=== PATIENT | male | born 1980 | race Caucasian/White ===

== ENCOUNTER 2017-10-07 07:36 | Emergency (ER) | payer OTHER ==
[2017-10-07 07:43] VITALS: BP 140/76
[2017-10-07 08:28] LABS: RAPID STREP SCREEN REAGENT QC YELLOW (YELLOW)
--- NOTE | 2017-10-07 08:40 | ED Physician Documentation ---
PD HPI HEENT - Stated complaint Stated Complaint: SORE THROAT - Chief complaint Chief Complaint: Heent - History obtained from History obtained from: Patient - History of Present Illness Timing - onset: How many days ago (5) Timing - duration: Days (5) Timing - details: Gradual onset, Still present Location: Throat Improves: Medication Worsens: Sw[place]ing Associated symptoms: Fever, Congestion, Rhinorrhea, Headache, Cough Similar symptoms before: Diagnosis (strep) Recently seen: Not recently seen - Additional information Additional information: 37-year-old male father of 5 children has been sick with a sore throat fever and headache for the past 5 days. All 5 of his children and his have been ill 3 of the children had positive rapid strep's yesterday. Review of Systems Constitutional: reports: Fever, Chills, Myalgias, Fatigue Eyes: denies: Decreased vision Ears: denies: Ear pain Nose: reports: Congestion Throat: reports: Sore throat Cardiac: denies: Chest pain / pressure, Palpitations Respiratory: reports: Cough. denies: Dyspnea GI: denies: Nausea, Vomiting : denies: Dysuria Neurologic: reports: Headache PD PAST MEDICAL HISTORY - Past Medical History Past Medical History: Yes GI: Hemorrhoids - Past Surgical History Past Surgical History: Yes General: Colonoscopy - Present Medications Home Medications: Ambulatory Orders Medication Instructions Recorded Confirmed Acetaminophen [Tylenol] 650 mg PO Q6HR 06/13/16 06/13/16 Ibuprofen 200 mg PO Q6HR PRN 06/13/16 06/13/16 Azithromycin [Zithromax] 250 mg PO DAILY #6 tablet 10/07/17 - Allergies Allergies/Adverse Reactions: Allergies Allergy/AdvReac Type Severity Reaction Status Date / Time Sulfa (Sulfonamide Allergy Edema Verified 10/07/17 07:44 Antibiotics) - Social History Does the pt smoke?: No Smoking Status: Never smoker Does the pt drink ETOH?: No Does the pt have substance abuse?: No - Immunizations Immunizations are current?: Yes - POLST Patient has POLST: No PD ED PE NORMAL - Vitals Vital signs reviewed: Yes (Hypertensive) - General General: No acute distress, Well developed/nourished - HEENT HEENT: Atraumatic, PERRL, EOMI, Ears normal, Moist mucous membranes, Other ( There is some mild erythema and exudate to the posterior pharynx.) - Neck Neck: Supple, no meningeal sign, No bony TTP - Cardiac Cardiac: RRR, No murmur - Respiratory Respiratory: No respiratory distress, Clear bilaterally - Abdomen Abdomen: Soft, Non tender - Back Back: No CVA TTP, No spinal TTP - Derm Derm: Normal color, Warm and dry, No rash - Extremities Extremities: No deformity, No edema - Neuro Neuro: No motor deficit, No sensory deficit Eye Opening: Spontaneous Motor: Obeys Commands Verbal: Oriented GCS Score: 15 - Psych Psych: Normal mood, Normal affect Results - Vitals Vitals: Vital Signs - 24 hr 10/07/17 07:40 Temperature 36.6 C Heart Rate 77 Respiratory 16 Rate Blood Pressure 140/76 H O2 Saturation 97 Oxygen O2 Source Room air - Labs Labs: Laboratory Tests 10/07/17 07:45 Group A Strep Rapid Negative PD MEDICAL DECISION MAKING - ED course Complexity details: reviewed results, considered differential, d/w patient ED course: 37-year-old male with exposure to strep has a sore throat. He is rapid strep is negative his exposure is extreme and he will be treated. Here in the emergency department he is given dexamethasone 10 mg orally and we will place him on some azithromycin. Departure - Departure Disposition: 01 Home, Self Care Clinical Impression: Strep pharyngitis Condition: Stable Instructions: ED Strep Pharyngitis Poss Follow-Up: [facility] [Provider Group] Prescriptions: Azithromycin [Zithromax] 250 mg PO DAILY #6 tablet Comments: Today in the Emergency Department your blood pressure was elevated. This can happen from the stress of the visit itself, from a current illness or circumstance or from uncontrolled hypertension. If you take blood pressure medications take your usual mediations, have your blood pressure re-checked in an appropriate setting and follow up any elevation with your primary care doctor.
[2017-10-07] MEDS ORDERED: DEXAMETHASONE 10 MG/ML VIAL ONE (08:49)
[2017-10-07] MEDS: DEXAMETHASONE 10 MG/ML VIAL PO STA (08:51)
== END 2017-10-07 08:54 | disposition home or self-care (01) ==
LOC: ED 07:36
DX: J02.0 Streptococcal pharyngitis (principal); R03.0 Elevated blood-pressure reading, without diagnosis of hypertension
CPT/HCPCS: 87070; 87430; 99283

== ENCOUNTER 2018-08-28 09:07 | Emergency (ER) | payer OTHER ==
[2018-08-28 09:20] VITALS: BP 140/93
[2018-08-28] MEDS ORDERED: DEXAMETHASONE 10 MG/ML VIAL PO STA (09:37)
--- NOTE | 2018-08-28 09:40 | ED Physician Documentation ---
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 He states that he worked nearly continuously for several hours and he did not particularly feel any back pain at the time. He did work up a sweat. He states that yesterday his back was sore and a bit stiff and today is very stiff and he is more comfortable just standing. He has had this happen to him previously with overwork but usually in his lower back and with this today he has the symptoms mostly in the mid back. He denies any radiating symptoms or peripheral symptoms. Review of Systems Constitutional: denies: Fever, Chills, Myalgias Eyes: denies: Decreased vision Ears: denies: Ear pain Nose: denies: Congestion Throat: denies: Sore throat Respiratory: denies: Cough GI: denies: Abdominal Pain, Nausea, Vomiting : denies: Dysuria, Frequency Skin: denies: Rash Musculoskeletal: reports: Back pain. denies: Neck pain Neurologic: denies: Generalized weakness, Focal weakness, Numbness PD PAST MEDICAL HISTORY - Past Medical History Past Medical History: Yes GI: Hemorrhoids - Past Surgical History Past Surgical History: Yes General: Colonoscopy - Present Medications Home Medications: Ambulatory Orders Medication Instructions Recorded Confirmed Acetaminophen [Tylenol] 650 mg PO Q6HR 06/13/16 06/13/16 Ibuprofen 200 mg PO Q6HR PRN 06/13/16 06/13/16 Azithromycin [Zithromax] 250 mg PO DAILY #6 tablet 10/07/17 Cyclobenzaprine [Flexeril] 10 mg PO TID PRN #20 tablet 08/28/18 HYDROcod/ACETAM 5/325 [[place] 5/325] 1 - 2 ea PO Q6H PRN #15 tablet 08/28/18 - Allergies Allergies/Adverse Reactions: Allergies Allergy/AdvReac Type Severity Reaction Status Date / Time Sulfa (Sulfonamide Allergy Edema Verified 10/07/17 07:44 Antibiotics) - Social History Does the pt smoke?: No Smoking Status: Never smoker Does the pt drink ETOH?: No Does the pt have substance abuse?: No - Immunizations Immunizations are current?: Yes - POLST Patient has POLST: No PD ED PE NORMAL - Vitals Vital signs reviewed: Yes (hypertensive mild ) - General General: Alert and oriented X 3, No acute distress, Well developed/nourished - HEENT HEENT: Atraumatic, PERRL, EOMI - Neck Neck: Supple, no meningeal sign - Respiratory Respiratory: No respiratory distress - Back Back: No CVA TTP, No spinal TTP, Other (There is tenderness and spasm to the paraspinous muscles of the mid and lower back more on the right. 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, No motor deficit, No sensory deficit, Normal speech Eye Opening: Spontaneous Motor: Obeys Commands Verbal: Oriented GCS Score: 15 - Psych Psych: Normal mood, Normal affect Results - Vitals Vitals: Vital Signs - 24 hr 08/28/18 09:16 Temperature 36.9 C Heart Rate 87 Respiratory 14 Rate Blood Pressure 140/93 H O2 Saturation 99 Oxygen O2 Source Room air PD MEDICAL DECISION MAKING - ED course Complexity details: considered differential, d/w patient, d/w family ED course: 37 y/o male with an overworked back has a lot of spasm and he is administered PO decadron and we will put him on some pain medication and muscle relaxant. - Sepsis Event Vital Signs: Vital Signs - 24 hr 08/28/18 09:16 Temperature 36.9 C Heart Rate 87 Respiratory 14 Rate Blood Pressure 140/93 H O2 Saturation 99 Oxygen O2 Source Room air Departure - Departure Disposition: 01 Home, Self Care Clinical Impression: Spasm of back muscles Condition: Stable Instructions: ED Spasm Back No Trauma Follow-Up: [facility] [place] [Provider Group] Prescriptions: Cyclobenzaprine [Flexeril] 10 mg PO TID PRN #20 tablet PRN Reason: Spasms HYDROcod/ACETAM 5/325 [[place] 5/325] 1 - 2 ea PO Q6H PRN #15 tablet PRN Reason: Pain
[2018-08-28] MEDS ORDERED: CHERRY SYRUP 10 ML UDC PO ONE (09:42)
== END 2018-08-28 09:54 | disposition home or self-care (01) ==
LOC: ED 09:07
DX: M62.830 Muscle spasm of back (principal)
CPT/HCPCS: 99283; A9270

== ENCOUNTER 2019-05-12 09:39 | Emergency (ER) | payer OTHER ==
--- NOTE | 2019-05-12 09:47 | ED Physician Documentation ---
History of Present Illness - Stated complaint Stated Complaint: MALE - Chief complaint Chief Complaint: General - History obtained from History obtained from: Patient - Additonal information Additional information: Patient is a 38-year-old male presenting with left testicular pain following a vasectomy about 2 weeks ago. Patient does note that the vasectomy was complicated, particularly with the left testicle. Patient reports that the surgeon had a difficult time on this side. No known infections or other complications, but patient has had swelling, redness, bruising, and pain since that time. Patient went back to the physician last week because of this, but no changes were made. Today, patient reports persistent symptoms, as well as palpable mass to the left testicle. He denies inguinal pain, abdominal pain, or flank pain, as well as any changes to urination or bowel movements. He also denies vomiting, fever, or chills. No other improving or worsening factors noted. Review of Systems Constitutional: denies: Fever, Chills GI: denies: Abdominal Pain, Vomiting, Constipation, Diarrhea : reports: Testicular pain, Testicular mass. 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) - Present Medications Home Medications: Ambulatory Orders Medication Instructions Recorded Confirmed Acetaminophen [Tylenol] 650 mg PO Q6HR 06/13/16 06/13/16 Ibuprofen 200 mg PO Q6HR PRN 06/13/16 06/13/16 Azithromycin [Zithromax] 250 mg PO DAILY #6 tablet 10/07/17 Cyclobenzaprine [Flexeril] 10 mg PO TID PRN #20 tablet 08/28/18 HYDROcod/ACETAM 5/325 [[place] 5/325] 1 - 2 ea PO Q6H PRN #15 tablet 08/28/18 Clindamycin [Cleocin] 450 mg PO Q6H 7 Days capsule 05/12/19 - Allergies Allergies/Adverse Reactions: Allergies Allergy/AdvReac Type Severity Reaction Status Date / Time red dye Allergy Itching Verified 05/12/19 09:45 Sulfa (Sulfonamide Allergy Edema Verified 05/12/19 09:45 Antibiotics) - Social History Does the pt smoke?: No Smoking Status: Never smoker Does the pt drink ETOH?: No Does the pt have substance abuse?: No - Immunizations Immunizations are current?: Yes - POLST Patient has POLST: No PD ED PE NORMAL - Vitals Vital signs reviewed: Yes - General General: Alert and oriented X 3, No acute distress, Well developed/nourished - HEENT HEENT: Atraumatic, Moist mucous membranes - Cardiac Cardiac: RRR, No murmur - Respiratory Respiratory: No respiratory distress, Clear bilaterally - Abdomen Abdomen: Soft, Non tender, Non distended - 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 Circumcised with no lesions, erythema, drainage from penis. Scrotum erythematous and swollen with scattered bruising of variable age. Tenderness over left testicle.) - Derm Derm: Normal color, Warm and dry, No rash - Extremities Extremities: No deformity, No tenderness to palpate - Neuro Neuro: Alert and oriented X 3, No motor deficit, No sensory deficit - Psych Psych: Normal mood, Normal affect Results - Vitals Vitals: Vital Signs - 24 hr 05/12/19 05/12/19 05/12/19 09:41 12:12 13:30 Temperature 36.6 C 36.8 C Heart Rate 74 78 75 Respiratory 14 20 18 Rate Blood Pressure 156/91 H 146/94 H 145/97 H O2 Saturation 98 99 97 Oxygen O2 Source Room air - Labs Labs: Laboratory Tests 05/12/19 05/12/19 05/12/19 10:55 13:31 13:31 WBC 6.5 RBC 5.65 Hgb 15.7 Hct 48.6 MCV 86.0 MCH 27.8 MCHC 32.3 RDW 12.0 Plt Count 284 MPV 9.5 Neut # (Auto) 3.8 Lymph # (Auto) 2.0 [place] # (Auto) 0.5 Eos # (Auto) 0.1 Baso # (Auto) 0.1 Absolute Nucleated RBC 0.00 Nucleated RBC % 0.0 Sodium 140 Potassium 3.5 Chloride 100 L Carbon Dioxide 26 Anion Gap 14.0 H BUN 21 H Creatinine 1.2 Estimated GFR (MDRD) 67 L Glucose 90 Calcium 9.5 Total Bilirubin 1.1 H AST 28 ALT 32 Alkaline Phosphatase 367 H Total Protein 8.4 H Albumin 4.7 Globulin 3.7 Albumin/Globulin Ratio 1.3 Lipase 33 Urine Color YELLOW Urine Clarity CLEAR Urine pH 6.0 Ur Specific [place] 1.020 Urine Protein NEGATIVE Urine Glucose (UA) NEGATIVE Urine Ketones NEGATIVE Urine Occult Blood TRACE-INTA Urine Nitrite NEGATIVE Urine Bilirubin NEGATIVE Urine Urobilinogen 0.2 (NORMAL) Ur Leukocyte Esterase NEGATIVE Ur Microscopic Review NOT INDICATED Urine Culture Comments NOT INDICATED PD MEDICAL DECISION MAKING - ED course Complexity details: reviewed results, re-evaluated patient, considered differential, d/w patient, d/w brand sales consultant ED course: Patient presenting with worsening pain, erythema, swelling, palpable mass about 2 weeks following vasectomy. Do have concern for possible complications status post vasectomy including infection or torsion.Also considering other etiologies including orchitis, epididymitis, hydrocele, hernia, varicocele. Have low suspicion for STIs at this time. Physical exam is relatively unremarkable with no palpable inguinal hernias and benign abdominal exam. Do not have high suspicion for intra-abdominal pathology at this time. Urinalysis obtained which returned rather unremarkable. Ultrasound returned concerning for phlegmon versus abscess. Given this finding, placed IV and obtain further lab work, as well as blood cultures and gave clindamycin. Able to contact Dr. Holcomb, patient's family physician, who performed a vasectomy who recommended urgent urology consult. Able to contact on-call urology at [facility].Urology recommended elevation and ice application over the next 24-36 hours then transitioning to warm baths, as well as antibiotics. Neurology originally recommended clindamycin and Bactrim for MRSA coverage. However, patient has a Bactrim allergy. Do feel that clindamycin will be appropriate to cover MRSA alone. Discussed results recommendations with patient including close urology follow- up. Patient voiced understanding and is comfortable with discharge plan. Departure - Departure Disposition: 01 Home, Self Care Clinical Impression: Testicular abscess Condition: Good Follow-Up: Km Cardoza MD [Physician No Access] - Tomorrow Prescriptions: Clindamycin [Cleocin] 450 mg PO Q6H 7 Days capsule Comments: Please continue any home medications as previously instructed. Please continue antibiotic as prescribed. Recommend ice and elevation to area for the next 24- 36 hours and then switching to warm baths. Please restrict activity. Please contact urology office later today or tomorrow to schedule outpatient follow-up, likely early next week. Return to ED sooner if experience worsening symptoms or have other concerns. Forms: Activity restrictions
[2019-05-12 11:05] LABS: BILIRUBIN,URINE NEGATIVE (NEGATIVE); GLUCOSE, URINE (UA) NEGATIVE (NEGATIVE); KETONES,URINE (UA) NEGATIVE (NEGATIVE); LEUKOCYTE ESTERASE, URINE NEGATIVE (NEGATIVE); NITRITE,URINE NEGATIVE (NEGATIVE); OCCULT BLOOD,URINE TRACE-INTA (NEGATIVE); PROTEIN,URINE NEGATIVE (NEGATIVE); UROBILINOGEN,URINE 0.2 (NORMAL) E.U./dL (NORMAL)
[2019-05-12 11:11] LABS: CLARITY,URINE CLEAR (CLEAR)
--- NOTE | 2019-05-12 12:32 | Ultrasound Report ---
Reason: recent vasectomy with left pain, swelling, mass Procedure Date: 05/12/2019 Accession Number: [id number] / [id number] Procedure: US - Testicle w/Doppler CPT Code: FULL RESULT: EXAM: SCROTAL ULTRASOUND EXAM DATE: 05/12/2019 11:46 AM. CLINICAL HISTORY: Recent vasectomy with left pain, swelling, mass. COMPARISON: None. TECHNIQUE: Real-time scanning was performed with static images obtained. Color-flow images were utilized. FINDINGS: Right: Testis: 4.8 x 2.0 x 3.3 cm. Normal size and echotexture. No mass, calcification, or abnormal blood flow. Epididymis: 1.4 x 1.0 x 1.0 cm. Normal size and echotexture. No mass or abnormal blood flow. Hydrocele: None. Varicocele: Prominent venous plexus with caliber of veins less than 2 mm as measured on submitted images. Left: Testis: 4.9 x 2.2 x 3.1 cm. Normal size and echotexture. No mass, calcification, or abnormal blood flow. Epididymis: 0.9 x 1.2 x 1.0 cm. Normal size and echotexture. No mass or abnormal blood flow. Hydrocele: None. Varicocele: None. Within the left extratesticular scrotum is a complex collection versus heterogeneous hypoechoic area, which measures 2.9 x 1.2 x 2.3 cm, and demonstrates mildly increased through-transmission as well as surrounding hyperemia by color Doppler. IMPRESSION: In the left scrotum is a 2.9 x 1.2 x 2.3 cm heterogeneous phlegmon versus complex fluid collection with surrounding increased vascularity by color Doppler. Phlegmon versus abscess. RADIA The call report notification system was initiated by Dr. Jim Saab at 12:30 PM on 05/12/2019. CRITICAL RESULT: The findings were discussed with on 05/12/2019 at 12:34 PM.
[2019-05-12] MEDS ORDERED: CLINDAMYCIN 900 MG/50 ML 50 ML IV ONE (13:22)
[2019-05-12 13:38] LABS: BASOPHILS # (AUTO) 0.1 10^3/uL (0.0-0.1); BASOPHILS % (AUTO) 1.7 %; EOSINOPHILS # (AUTO) 0.1 10^3/uL (0.0-0.7); EOSINOPHILS % (AUTO) 1.8 %; HGB - HEMOGLOBIN 15.7 g/dL (14.0-18.0); LYMPHOCYTES % (AUTO) 30.1 %; MEAN CORPUSCULAR HEMOGLOBIN 27.8 pg (27.0-31.0); MEAN CORPUSCULAR HGB CONC 32.3 g/dL (32.0-36.0); MEAN PLATELET VOLUME 9.5 fL (7.4-11.4); MONOCYTES # (AUTO) 0.5 10^3/uL (0.0-1.0); MONOCYTES % (AUTO) 7.4 %; NEUTROPHILS # (AUTO) 3.8 10^3/uL (1.5-6.6); NEUTROPHILS % (AUTO) 58.1 %; PLT - PLATELET COUNT 284 10^3/uL (130-450); RED BLOOD COUNT 5.65 10^6/uL (4.70-6.10); WHITE BLOOD COUNT 6.5 x10^3/uL (4.8-10.8)
[2019-05-12 14:14] LABS: ALBUMIN 4.7 g/dL (3.2-5.5); ALBUMIN/GLOBULIN RATIO 1.3 (1.0-2.2); BILIRUBIN,TOTAL 1.1 mg/dL (0.2-1.0); CALCIUM 9.5 mg/dL (8.5-10.3); CREATININE 1.2 mg/dL (0.6-1.2); TOTAL PROTEIN 8.4 g/dL (6.7-8.2)
[2019-05-12 14:31] VITALS: BP 128/86
== END 2019-05-12 14:59 | disposition home or self-care (01) ==
LOC: ED 09:39
DX: N45.4 Abscess of epididymis or testis (principal); Z98.52 Vasectomy status; Z88.1 Allergy status to other antibiotic agents
CPT/HCPCS: 36415; 76870; 80053; 81001; 81003; 83690; 85025; 87040; 87086; 93975; 96374; 99283; 99284

== ENCOUNTER 2022-08-18 08:34 | Outpatient (CLI) | payer OTHER ==
--- NOTE | 2022-08-18 10:02 | MRI Report ---
PROCEDURE: Lumbar Spine W/O INDICATIONS: LOW BACK PAIN TECHNIQUE: Noncontrast sagittal T1 spin echo and T2 fast echo, sagittal STIR, axial T1 and T2 fast spin echo thr ough the lumbar spine. In cases with scoliosis, additional coronal T2 fast spin echo may be performe d. COMPARISON: None. FINDINGS: Image quality: Excellent. Alignment and Curvature: There is normal bony alignment. Bone Marrow: Marrow is of normal overall signal. Scattered foci of T1-weighted hyperintensity and T 2-weighted hyperintensity are seen, without increased STIR signal. These foci are attributed to benig n vertebral body hemangiomas. The most prominent of these can be seen within the L3 vertebral body. No acute vertebral body compression fractures. Spinal Cord: Conus medullaris terminates at the L1 level. Visualized cord demonstrates normal signa l and size. Paraspinous Soft Tissues: No paravertebral masses. T12-L1: Mild loss of disc height and disc signal are seen. Mild disc bulge is seen, which is slightl y eccentric to the right. There is a mild central/right disc protrusion. No neural foraminal narrowin g is seen. Minimal central canal narrowing is seen. L1-L2: Normal in appearance. L2-L3: Normal in appearance. L3-L4: The disc height and disc signal are well preserved. Mild disc bulge is seen. A superimpos ed central disc protrusion is seen. No significant neuroforaminal narrowing is seen. Minimal central canal narrowing is seen. L4-L5: The disc height is well-preserved. There is loss of disc signal seen. Mild disc bulge is se en. A superimposed central disc protrusion is seen. Note is made of an annular fissure posteriorly. Mild facet hypertrophy is seen. Moderate bilateral neuroforaminal narrowing can be seen, right wor se than left. Minimal central canal narrowing is seen. L5-S1: Mild to moderate loss of disc height and disc signal can be seen. Mild disc bulge is seen. Mild facet hypertrophy is seen. Mild bilateral neural foraminal narrowing is seen. Mild to moder ate central canal narrowing is seen, which is partially caused by prominent epidural fat. IMPRESSION: Focal lower lumbar spine degenerative changes are seen, including moderate bilateral erika roforaminal narrowing at L4-L5, with an annular fissure also seen at L4-L5. Reviewed by: Eron Powell MD on 08/18/2022 9:01 AM VIRAJ Approved by: Eron Powell MD on 08/18/2022 9:01 AM VIRAJ Station ID: [id number]
== END 2022-08-18 08:35 | disposition home or self-care (01) ==
LOC: DI 08:34
DX: M51.36 Other intervertebral disc degeneration, lumbar region (principal); M47.816 Spondylosis without myelopathy or radiculopathy, lumbar region; M48.061 Spinal stenosis, lumbar region without neurogenic claudication; M51.37 Other intervertebral disc degeneration, lumbosacral region; M47.817 Spondylosis without myelopathy or radiculopathy, lumbosacral region; M48.07 Spinal stenosis, lumbosacral region

== ENCOUNTER 2022-11-23 20:17 | Emergency (ER) | payer OTHER ==
--- OUTSIDE RECORDS SUMMARY | 2022-11-23 21:01 | EXTERNAL MEDICAL SUMMARY RPT | Continuity of Care Document ---
:1980 Author Organization [facility] Address [address] [place] [address] Phone Care Team Providers Name Role Phone LaylaParadise valero Unavailable Unavailable Allergies No information. Encounters No information. Functional Status No information. Immunizations No information. Medications No information. Problems date description facility 2022-09-10 00:00 Obstructive sleep apnea syndrome in [facility] Procedures No information. Results/Labs test date author facility value unit interpret ation Result panel 1 (unknown) (no (unknown) (unknown) (no value) (units (unk nown) date) unknown) (unknown) (no (unknown) (unknown) (1) Obstructive (units (unknown) date) sleep apnea of unknown) adult: (unknown) (no (unknown) (unknown) (2) Excessive (units ( unknown) date) daytime sleepiness: unknown) (unknown) (no (unknown) (unknown) (3) Insomnia: (units ( unknown) date) unknown) (unknown) (no (unknown) (unknown) (4) History of (units (unknown) date) snoring: unknown) (unknown) (no (unknown) (unknown) 07/07/22 (units (unkno wn) date) unknown) (unknown) (no (unknown) (unknown) [id number] (units (unkno wn) date) unknown) (unknown) (no (unknown) (unknown) Add'l Complaint: (units (unknown) date) unknown) (unknown) (no (unknown) (unknown) Adhere to regular (units (unknown) date) mealtime schedule, unknown) avoid snacking (unknown) (no (unknown) (unknown) Affect: normal (units (unknown) date) affect unknown) (unknown) (no (unknown) (unknown) Age/Sex: 42 / M (units (unknown) date) Date of Service: unknown) (unknown) (no (unknown) (unknown) Allergies (units (unkn own) date) unknown) (unknown) (no (unknown) (unknown) [place], [place] (units ( unknown) date) [id number] unknown) (unknown) (no (unknown) (unknown) Appearance: (units (un known) date) grossly normal unknown) (unknown) (no (unknown) (unknown) Assessment + Plan (units (unknown) date) unknown) (unknown) (no (unknown) (unknown) Assessment and (units (unknown) date) Plan: unknown) (unknown) (no (unknown) (unknown) Associate your bed (units (unknown) date) with sleep. It's unknown) not a good idea to use your bed to watch TV, (unknown) (no (unknown) (unknown) Attending Dr: (units ( unknown) date) Paradise SOTO unknown) (unknown) (no (unknown) (unknown) Attitude: (units (unkn own) date) cooperative unknown) (unknown) (no (unknown) (unknown) Auto CPAP set (units ( unknown) date) pressures: 5-15 CWP unknown) (unknown) (no (unknown) (unknown) Avoid alcohol (units ( unknown) date) after 4 pm unknown) (unknown) (no (unknown) (unknown) Avoid medications (units (unknown) date) which may interfere unknown) with sleep (unknown) (no (unknown) (unknown) Avoid random (units (u nknown) date) napping during the unknown) day; it can disturb the normal pattern of sleep (unknown) (no (unknown) (unknown) Avoid stimulants (units (unknown) date) such as caffeine, unknown) nicotine, and alcohol too close to bedtime. (unknown) (no (unknown) (unknown) CPAP (5-15 cwp) (units (unknown) date) unknown) (unknown) (no (unknown) (unknown) CPAP titration (units (unknown) date) study. Alternative unknown) therapies, including dental appliances and (unknown) (no (unknown) (unknown) Cognition: normal (units (unknown) date) cognition unknown) (unknown) (no (unknown) (unknown) Compliance visit (units (unknown) date) unknown) (unknown) (no (unknown) (unknown) Conjunctivae: (units ( unknown) date) conjunctivae normal unknown) (unknown) (no (unknown) (unknown) Consider weaning (units (unknown) date) caffeine use, unknown) starting with no caffeine after 3pm (unknown) (no (unknown) (unknown) Const (units (unkno wn) date) unknown) (unknown) (no (unknown) (unknown) Currently using (units (unknown) date) CPAP 5-15 cwp. unknown) (unknown) (no (unknown) (unknown) : 1980 (units (unknown) date) Acct:[id number] unknown) (unknown) (no (unknown) (unknown) Dept at (units (unkno wn) date) . unknown) (unknown) (no (unknown) (unknown) Details: (units (unkno wn) date) unknown) (unknown) (no (unknown) (unknown) Device data last (units (unknown) date) 30 days: unknown) (unknown) (no (unknown) (unknown) Documented By: (units (unknown) date) Paradise Rich unknown) 09/10/22 0901 (unknown) (no (unknown) (unknown) Draft (units (unkno wn) date) unknown) (unknown) (no (unknown) (unknown) Drowsy driving (units (unknown) date) handout made unknown) available. (unknown) (no (unknown) (unknown) Ears: hearing (units ( unknown) date) grossly normal unknown) bilaterally (unknown) (no (unknown) (unknown) Effort + (units (unkno wn) date) Inspection: normal unknown) respiratory effort, able to speak in complete (unknown) (no (unknown) (unknown) Ensure adequate (units (unknown) date) exposure to natural unknown) light. This is particularly important for (unknown) (no (unknown) (unknown) Establish a regular (units (unknown) date) relaxing bedtime unknown) routine. Try to avoid emotionally upsetting (unknown) (no (unknown) (unknown) Exam Narrative (units (unknown) date) unknown) (unknown) (no (unknown) (unknown) Exam Narrative: (units (unknown) date) unknown) (unknown) (no (unknown) (unknown) Exam (units (unkno wn) date) unknown) (unknown) (no (unknown) (unknown) Eyes (units (unkno wn) date) unknown) (unknown) (no (unknown) (unknown) Food can be (units (un known) date) disruptive right unknown) before sleep; stay away from large meals close to (unknown) (no (unknown) (unknown) General: (units (unkno wn) date) cooperative, unknown) comfortable and no acute distress (unknown) (no (unknown) (unknown) General: patient (units (unknown) date) alert, patient unknown) awake and patient oriented x3 (unknown) (no (unknown) (unknown) Get regular (units (un known) date) moderate exercise unknown) (30 minutes, 3x/week) (unknown) (no (unknown) (unknown) HENMT (units (unkno wn) date) unknown) (unknown) (no (unknown) (unknown) HPI Sleep Follow (units (unknown) date) Up unknown) (unknown) (no (unknown) (unknown) HPI (units (unkno wn) date) unknown) (unknown) (no (unknown) (unknown) Head: normal to (units (unknown) date) inspection unknown) (unknown) (no (unknown) (unknown) Intake (units (unkno wn) date) unknown) (unknown) (no (unknown) (unknown) Light exposure (units (unknown) date) during the day unknown) helps maintain a healthy sleep-wake cycle. In (unknown) (no (unknown) (unknown) Loc: SLEEP (units (unk nown) date) unknown) (unknown) (no (unknown) (unknown) Make sure that the (units (unknown) date) sleep environment unknown) is pleasant and relaxing. The bed should be (unknown) (no (unknown) (unknown) Mask leak. (units (unk nown) date) unknown) (unknown) (no (unknown) (unknown) Medical History (units (unknown) date) (Updated 09/10/22 @ unknown) 09:05 by BRITTANY Maynard) (unknown) (no (unknown) (unknown) Moderate LORI. (units ( unknown) date) Patient reports a unknown) history of snoring and a disturbed sleep (unknown) (no (unknown) (unknown) Mood: congruent (units (unknown) date) mood unknown) (unknown) (no (unknown) (unknown) Neck (units (unkno wn) date) unknown) (unknown) (no (unknown) (unknown) Neck: normal (units (u nknown) date) visual inspection unknown) (unknown) (no (unknown) (unknown) Neuro (units (unkno wn) date) unknown) (unknown) (no (unknown) (unknown) Obstructive sleep (units (unknown) date) apnea of adult unknown) (unknown) (no (unknown) (unknown) PFSH (units (unkno wn) date) unknown) (unknown) (no (unknown) (unknown) Patient has a (units ( unknown) date) history of chronic unknown) snoring. Positional therapy and the use of (unknown) (no (unknown) (unknown) Patient instructed (units (unknown) date) to use scheduled unknown) naps as needed for drowsiness safety (unknown) (no (unknown) (unknown) Patient reports a (units (unknown) date) history of snoring unknown) and a disturbed sleep pattern. There is (unknown) (no (unknown) (unknown) Patient reports (units (unknown) date) symptoms of chronic unknown) insomnia for more than 3 months as evidenced (unknown) (no (unknown) (unknown) Patient scheduled (units (unknown) date) for an attended unknown) overnight diagnostic sleep study (unknown) (no (unknown) (unknown) Patient was (units (un known) date) instructed to avoid unknown) driving or operating heavy machinery when (unknown) (no (unknown) (unknown) Patient was (units (un known) date) instructed to unknown) return sooner if any questions or concerns arise. (unknown) (no (unknown) (unknown) Patient: (units (unkno wn) date) Jerzy Reeder MR#: unknown) [id number] (unknown) (no (unknown) (unknown) Plan (units (unkno wn) date) unknown) (unknown) (no (unknown) (unknown) Positional therapy (units (unknown) date) as needed. unknown) (unknown) (no (unknown) (unknown) Properly timed (units (unknown) date) exercise can unknown) promote good sleep. Vigorous exercise should be (unknown) (no (unknown) (unknown) Psych (units (unkno wn) date) unknown) (unknown) (no (unknown) (unknown) Reason For Visit (units (unknown) date) unknown) (unknown) (no (unknown) (unknown) Resp (units (unkno wn) date) unknown) (unknown) (no (unknown) (unknown) Return visit in 2 (units (unknown) date) weeks to review unknown) sleep study results (unknown) (no (unknown) (unknown) SWELLING (units (unkno wn) date) unknown) (unknown) (no (unknown) (unknown) Sclera: sclerae (units (unknown) date) normal unknown) (unknown) (no (unknown) (unknown) Signed By: (units (unk nown) date) unknown) (unknown) (no (unknown) (unknown) Sleep Visit (units (un known) date) unknown) (unknown) (no (unknown) (unknown) [facility] unknown) (unknown) (no (unknown) (unknown) Sleep hygiene and (units (unknown) date) sleep schedules unknown) were discussed. This will be reassessed after (unknown) (no (unknown) (unknown) Smoking Status: (units (unknown) date) Never smoker unknown) (unknown) (no (unknown) (unknown) Speech and (units (unk nown) date) Movement: speech unknown) and movement normal (unknown) (no (unknown) (unknown) Speech: speech (units (unknown) date) normal unknown) (unknown) (no (unknown) (unknown) Status: Acute (units ( unknown) date) unknown) (unknown) (no (unknown) (unknown) Sulfa (Sulfonamide (units (unknown) date) Antibiotics) unknown) Allergy (Verified 08/15/21 15:22) (unknown) (no (unknown) (unknown) The patient (units (un known) date) reports symptoms of unknown) excessive daytime sleepiness as evidenced by (unknown) (no (unknown) (unknown) Therefore, would (units (unknown) date) recommend the unknown) patient return to the sleep lab for a full-night (unknown) (no (unknown) (unknown) This note may have (units (unknown) date) been all or unknown) partially generated using voice recognition (unknown) (no (unknown) (unknown) This will be (units (u nknown) date) reassessed once the unknown) sleep study has been completed. (unknown) (no (unknown) (unknown) Tobacco + (units (unkn own) date) Substance Use unknown) (unknown) (no (unknown) (unknown) Tobacco Status (units (unknown) date) unknown) (unknown) (no (unknown) (unknown) Treatment Effects: (units (unknown) date) Pap Treatment unknown) Response/Side Effects: adherent to current PAP (unknown) (no (unknown) (unknown) Treatment (units (unkn own) date) Response/Side unknown) Affects (unknown) (no (unknown) (unknown) Usage: 87% with (units (unknown) date) 83% greater than 4 unknown) hours. Leak 28.4. AHIflow: 1.8 (unknown) (no (unknown) (unknown) Use of nasal (units (u nknown) date) steroids and unknown) montelukast was also reviewed. 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 (unknown) (no (unknown) (unknown) addition, avoiding (units (unknown) date) nighttime bright unknown) light exposure, which can occur with many (unknown) (no (unknown) (unknown) also a history of (units (unknown) date) hypertension and unknown) depression with a Mallampati score of IV. (unknown) (no (unknown) (unknown) and wakefulness. (units (unknown) date) Scheduled napping unknown) may be considered if appropriate for the (unknown) (no (unknown) (unknown) bedtime. Also (units (u nknown) date) dietary changes can unknown) cause sleep problems, if someone is struggling (unknown) (no (unknown) (unknown) bring your (units (unk nown) date) problems to bed. unknown) (unknown) (no (unknown) (unknown) by trouble staying (units (unknown) date) asleep and unknown) non-restorative sleep. This can be seen secondary (unknown) (no (unknown) (unknown) can be seen (units (un known) date) secondary to sleep unknown) apnea, insomnia, depression, medical conditions (unknown) (no (unknown) (unknown) comfortable, the (units (unknown) date) room should be unknown) quiet, not too hot or cold, or too bright. (unknown) (no (unknown) (unknown) conversations and (units (unknown) date) activities before unknown) trying to go to sleep. Don't dwell on, or (unknown) (no (unknown) (unknown) daytime sleeping (units (unknown) date) and an elevated unknown) [place] Sleepiness Scale score of 18/24. This (unknown) (no (unknown) (unknown) dishes. And, (units (u nknown) date) remember, chocolate unknown) has caffeine. (unknown) (no (unknown) (unknown) done before bed to (units (unknown) date) help initiate a unknown) restful night's sleep. (unknown) (no (unknown) (unknown) drowsy. (units (unkno wn) date) unknown) (unknown) (no (unknown) (unknown) efficiency was (units ( unknown) date) 90.1%. The PLM unknown) index was 11.7. The sleep study is consistent with (unknown) (no (unknown) (unknown) have occurred. If (units (unknown) date) there are any unknown) questions, please contact the Medical Records (unknown) (no (unknown) (unknown) listen to the (units ( unknown) date) radio, or read as unknown) if you associate falling asleep with these (unknown) (no (unknown) (unknown) may occur. (units (unk nown) date) Occasional unknown) wrong-word or 'sound-alike' substitutions may have (unknown) (no (unknown) (unknown) moderate (units (unkno wn) date) obstructive sleep unknown) apnea with desaturation events down to 86%. (unknown) (no (unknown) (unknown) nasal saline and (units (unknown) date) internal and unknown) external nasal dilator therapies were discussed. (unknown) (no (unknown) (unknown) occurred due to (units (unknown) date) the inherent unknown) limitations of voice recognition software. Please (unknown) (no (unknown) (unknown) older people who (units (unknown) date) may not venture unknown) outside as frequently as children and adults. (unknown) (no (unknown) (unknown) on the sleep (units (u nknown) date) study. unknown) (unknown) (no (unknown) (unknown) optimal sleep (units ( unknown) date) schedule. unknown) (unknown) (no (unknown) (unknown) or can be a (units (un known) date) primary problem. unknown) Risks and symptoms of drowsiness were reviewed. (unknown) (no (unknown) (unknown) pattern. This (units ( unknown) date) nocturnal unknown) polysomnographic sleep study showed moderate snoring (unknown) (no (unknown) (unknown) personal (units (unkno wn) date) electronic devices, unknown) can also help maintain a healthy sleep-wake cycle. (unknown) (no (unknown) (unknown) read the note (units ( unknown) date) carefully and unknown) recognize, using context, where these substitutions (unknown) (no (unknown) (unknown) sentences and no (units (unknown) date) audible wheezes unknown) (unknown) (no (unknown) (unknown) software. Although (units (unknown) date) every effort is unknown) made to edit content, maintenance electrician errors (unknown) (no (unknown) (unknown) surgical (units (unkno wn) date) procedures could unknown) also be considered.? (unknown) (no (unknown) (unknown) taken in the (units (u nknown) date) morning or late unknown) afternoon. A relaxing exercise, like yoga, can be (unknown) (no (unknown) (unknown) the second half as (units (unknown) date) the body begins to unknown) metabolize the alcohol, causing arousal. (unknown) (no (unknown) (unknown) the sleep study. (units (unknown) date) unknown) (unknown) (no (unknown) (unknown) to sleep apnea, (units (unknown) date) depression, medical unknown) conditions or can be an independent problem. (unknown) (no (unknown) (unknown) treatment (units (unkn own) date) improving on unknown) treatment (unknown) (no (unknown) (unknown) which was (units (unkn own) date) continuous in unknown) nature. The apnea/hypopnea index was 15.2 and the sleep (unknown) (no (unknown) (unknown) with a sleep (units (u nknown) date) problem, it's not a unknown) good time to start experimenting with spicy Result panel 2 (unknown) (no (unknown) (unknown) (no value) (units (unk nown) date) unknown) (unknown) (no (unknown) (unknown) (1) Obstructive (units (unknown) date) sleep apnea of unknown) adult: (unknown) (no (unknown) (unknown) (2) Excessive (units ( unknown) date) daytime unknown) sleepiness: (unknown) (no (unknown) (unknown) (3) Insomnia: (units ( unknown) date) unknown) (unknown) (no (unknown) (unknown) (4) History of (units (unknown) date) snoring: unknown) (unknown) (no (unknown) (unknown) 09/10/22 (units (unkno wn) date) unknown) (unknown) (no (unknown) (unknown) 2: better (units (unkn own) date) unknown) (unknown) (no (unknown) (unknown) [id number] (units (unkno wn) date) unknown) (unknown) (no (unknown) (unknown) 86%. CPAP (units (unkn own) date) initiated. unknown) (unknown) (no (unknown) (unknown) Add'l Complaint: (units (unknown) date) unknown) (unknown) (no (unknown) (unknown) Adhere to (units (unkn own) date) regular mealtime unknown) schedule, avoid snacking (unknown) (no (unknown) (unknown) Affect: normal (units (unknown) date) affect unknown) (unknown) (no (unknown) (unknown) Age/Sex: 42 / M (units (unknown) date) Date of Service: unknown) (unknown) (no (unknown) (unknown) Allergies (units (unkn own) date) unknown) (unknown) (no (unknown) (unknown) [place], [place] (units ( unknown) date) [id number] unknown) (unknown) (no (unknown) (unknown) Appearance: (units (un known) date) grossly normal unknown) (unknown) (no (unknown) (unknown) Assessment + (units (u nknown) date) Plan unknown) (unknown) (no (unknown) (unknown) Assessment and (units (unknown) date) Plan: unknown) (unknown) (no (unknown) (unknown) Associate your (units ( unknown) date) bed with sleep. unknown) It's not a good idea to use your bed to watch TV, (unknown) (no (unknown) (unknown) Attending Dr: (units ( unknown) date) Paradise Rich unknown) PERSONAL CARE SERVICE PROVIDER (unknown) (no (unknown) (unknown) Attitude: (units (unkn own) date) cooperative unknown) (unknown) (no (unknown) (unknown) Auto CPAP set (units ( unknown) date) pressures: 5-15 unknown) CWP (unknown) (no (unknown) (unknown) Avoid alcohol (units ( unknown) date) after 4 pm unknown) (unknown) (no (unknown) (unknown) Avoid (units (unkno wn) date) medications which unknown) may interfere with sleep (unknown) (no (unknown) (unknown) Avoid random (units (u nknown) date) napping during unknown) the day; it can disturb the normal pattern of sleep (unknown) (no (unknown) (unknown) Avoid stimulants (units (unknown) date) such as caffeine, unknown) nicotine, and alcohol too close to bedtime. (unknown) (no (unknown) (unknown) CPAP (5-15 cwp) (units (unknown) date) unknown) (unknown) (no (unknown) (unknown) Chief Complaint: (units (unknown) date) Follow up CPAP unknown) therapy for LORI (unknown) (no (unknown) (unknown) Clinical Course (units (unknown) date) unknown) (unknown) (no (unknown) (unknown) Cognition: (units (unk nown) date) normal cognition unknown) (unknown) (no (unknown) (unknown) Compliance visit (units (unknown) date) unknown) (unknown) (no (unknown) (unknown) Condition is (units (u nknown) date) Onset: Chronic unknown) and ongoing condition (unknown) (no (unknown) (unknown) Conjunctivae: (units ( unknown) date) conjunctivae unknown) normal (unknown) (no (unknown) (unknown) Consider weaning (units (unknown) date) caffeine use, unknown) starting with no caffeine after 3pm (unknown) (no (unknown) (unknown) Const (units (unkno wn) date) unknown) (unknown) (no (unknown) (unknown) Currently using (units (unknown) date) CPAP 5-15 cwp. unknown) Compliance data reviewed, implications of (unknown) (no (unknown) (unknown) Currently using (units (unknown) date) CPAP 5-15 cwp. unknown) Using the device regularly. Reports no concerns (unknown) (no (unknown) (unknown) DME: (units (unkno wn) date) unknown) (unknown) (no (unknown) (unknown) : 1980 (units (unknown) date) Acct:[id number] unknown) (unknown) (no (unknown) (unknown) Dept at (units (unkno wn) date) . unknown) (unknown) (no (unknown) (unknown) Details: (units (unkno wn) date) unknown) (unknown) (no (unknown) (unknown) Device data last (units (unknown) date) 30 days: unknown) (unknown) (no (unknown) (unknown) Device set up: (units (unknown) date) unknown) (unknown) (no (unknown) (unknown) Documented By: (units (unknown) date) Paradise Rich unknown) [facility] 09/10/22 0901 (unknown) (no (unknown) (unknown) Draft (units (unkno wn) date) unknown) (unknown) (no (unknown) (unknown) Drowsy driving (units (unknown) date) handout made unknown) available. (unknown) (no (unknown) (unknown) Ears: hearing (units ( unknown) date) grossly normal unknown) bilaterally (unknown) (no (unknown) (unknown) Effort + (units (unkno wn) date) Inspection: unknown) normal respiratory effort, able to speak in complete (unknown) (no (unknown) (unknown) Ensure adequate (units (unknown) date) exposure to unknown) natural light. This is particularly important for (unknown) (no (unknown) (unknown) Establish a (units (unk nown) date) regular relaxing unknown) bedtime routine. Try to avoid emotionally upsetting (unknown) (no (unknown) (unknown) Exam Narrative (units (unknown) date) unknown) (unknown) (no (unknown) (unknown) Exam Narrative: (units (unknown) date) unknown) (unknown) (no (unknown) (unknown) Exam (units (unkno wn) date) unknown) (unknown) (no (unknown) (unknown) Eyes (units (unkno wn) date) unknown) (unknown) (no (unknown) (unknown) Food can be (units (un known) date) disruptive right unknown) before sleep; stay away from large meals close to (unknown) (no (unknown) (unknown) General: (units (unkno wn) date) cooperative, unknown) comfortable and no acute distress (unknown) (no (unknown) (unknown) General: patient (units (unknown) date) alert, patient unknown) awake and patient oriented x3 (unknown) (no (unknown) (unknown) Get regular (units (un known) date) moderate exercise unknown) (30 minutes, 3x/week) (unknown) (no (unknown) (unknown) HENMT (units (unkno wn) date) unknown) (unknown) (no (unknown) (unknown) HPI Sleep Follow (units (unknown) date) Up unknown) (unknown) (no (unknown) (unknown) HPI (units (unkno wn) date) unknown) (unknown) (no (unknown) (unknown) Head: normal to (units (unknown) date) inspection unknown) (unknown) (no (unknown) (unknown) Intake (units (unkno wn) date) unknown) (unknown) (no (unknown) (unknown) Light exposure (units (unknown) date) during the day unknown) helps maintain a healthy sleep-wake cycle. In (unknown) (no (unknown) (unknown) Loc: SLEEP (units (unk nown) date) unknown) (unknown) (no (unknown) (unknown) Make sure that (units ( unknown) date) the sleep unknown) environment is pleasant and relaxing. The bed should be (unknown) (no (unknown) (unknown) Mask leak. (units (unk nown) date) unknown) (unknown) (no (unknown) (unknown) Medical History (units (unknown) date) (Updated 09/10/22 unknown) @ 09:05 by BRITTANY Maynard) (unknown) (no (unknown) (unknown) Moderate LORI. (units ( unknown) date) Patient reports a unknown) history of snoring and a disturbed sleep (unknown) (no (unknown) (unknown) Mood: congruent (units (unknown) date) mood unknown) (unknown) (no (unknown) (unknown) NPSG consistent (units (unknown) date) with moderate LORI unknown) (AHI 15.2) with desaturation events down to (unknown) (no (unknown) (unknown) Neck (units (unkno wn) date) unknown) (unknown) (no (unknown) (unknown) Neck: normal (units (u nknown) date) visual inspection unknown) (unknown) (no (unknown) (unknown) Neuro (units (unkno wn) date) unknown) (unknown) (no (unknown) (unknown) Obstructive (units (un known) date) sleep apnea of unknown) adult (unknown) (no (unknown) (unknown) PFSH (units (unkno wn) date) unknown) (unknown) (no (unknown) (unknown) Patient has a (units ( unknown) date) history of unknown) chronic snoring. Positional therapy and the use of (unknown) (no (unknown) (unknown) Patient (units (unkno wn) date) instructed to use unknown) scheduled naps as needed for drowsiness safety (unknown) (no (unknown) (unknown) Patient (units (unkno wn) date) prescribed unknown) continued CPAP therapy at 5-15 cwp. No changes made today. (unknown) (no (unknown) (unknown) Patient reports (units (unknown) date) a history of unknown) snoring and a disturbed sleep pattern. There is (unknown) (no (unknown) (unknown) Patient reports (units (unknown) date) symptoms of unknown) chronic insomnia for more than 3 months as evidenced (unknown) (no (unknown) (unknown) Patient (units (unkno wn) date) scheduled for an unknown) attended overnight diagnostic sleep study (unknown) (no (unknown) (unknown) Patient was (units (un known) date) encouraged to unknown) maintain PAP usage at a minimum of 4 hours a night, (unknown) (no (unknown) (unknown) Patient was (units (un known) date) instructed to unknown) avoid driving or operating heavy machinery when (unknown) (no (unknown) (unknown) Patient: (units (o wn) date) Jerzy Reeder unknown) MR#: [id number] (unknown) (no (unknown) (unknown) Plan (units (unkno wn) date) unknown) (unknown) (no (unknown) (unknown) Positional (units (unk n) date) therapy as unknown) needed. (unknown) (no (unknown) (unknown) Prescription (units (u nknown) date) written for unknown) renewal of PAP supplies; (unknown) (no (unknown) (unknown) Properly timed (units (unknown) date) exercise can unknown) promote good sleep. Vigorous exercise should be (unknown) (no (unknown) (unknown) Psych (units (unkno wn) date) unknown) (unknown) (no (unknown) (unknown) Reason For Visit (units (unknown) date) unknown) (unknown) (no (unknown) (unknown) Resp (units (unkno wn) date) unknown) (unknown) (no (unknown) (unknown) Return visit in 6 (units (unknown) date) months to assess unknown) continued response to PAP therapy Patient was (unknown) (no (unknown) (unknown) SWELLING (units (unkno wn) date) unknown) (unknown) (no (unknown) (unknown) Sclera: sclerae (units (unknown) date) normal unknown) (unknown) (no (unknown) (unknown) Signed By: (units (unk n) date) unknown) (unknown) (no (unknown) (unknown) Sleep Visit (units (un known) date) unknown) (unknown) (no (unknown) (unknown) [facility] (units ([facility]) date) Center unknown) (unknown) (no (unknown) (unknown) Sleep hygiene (units ( unknown) date) and sleep unknown) schedules were discussed. This will be reassessed after (unknown) (no (unknown) (unknown) Smoking Status: (units (unknown) date) Never smoker unknown) (unknown) (no (unknown) (unknown) Speech and (units (unk nown) date) Movement: speech unknown) and movement normal (unknown) (no (unknown) (unknown) Speech: speech (units (unknown) date) normal unknown) (unknown) (no (unknown) (unknown) Status: Acute (units ( unknown) date) unknown) (unknown) (no (unknown) (unknown) Sulfa (units (unkno wn) date) (Sulfonamide unknown) Antibiotics) Allergy (Verified 08/15/21 15:22) (unknown) (no (unknown) (unknown) The patient (units (un known) date) reports symptoms unknown) of excessive daytime sleepiness as evidenced by (unknown) (no (unknown) (unknown) This note may (units ( unknown) date) have been all or unknown) partially generated using voice recognition (unknown) (no (unknown) (unknown) This will be (units (u nknown) date) reassessed once unknown) the sleep study has been completed. (unknown) (no (unknown) (unknown) Tobacco + (units (unkn own) date) Substance Use unknown) (unknown) (no (unknown) (unknown) Tobacco Status (units (unknown) date) unknown) (unknown) (no (unknown) (unknown) Treatment (units (unkn own) date) Effects: Pap unknown) Treatment Response/Side Effects: adherent to current PAP (unknown) (no (unknown) (unknown) Treatment (units (unkn own) date) Response/Side unknown) Affects (unknown) (no (unknown) (unknown) Usage: 87% with (units (unknown) date) 83% greater than unknown) 4 hours. Leak 28.4. AHIflow: 1.8 (unknown) (no (unknown) (unknown) Use of nasal (units (u nknown) date) steroids and unknown) montelukast was also reviewed. 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 (unknown) (no (unknown) (unknown) addition, (units (unkn own) date) avoiding unknown) nighttime bright light exposure, which can occur with many (unknown) (no (unknown) (unknown) also a history (units (unknown) date) of hypertension unknown) and depression with a Mallampati score of IV. (unknown) (no (unknown) (unknown) and wakefulness. (units (unknown) date) Scheduled napping unknown) may be considered if appropriate for the (unknown) (no (unknown) (unknown) bedtime. Also (units (u nknown) date) dietary changes unknown) can cause sleep problems, if someone is struggling (unknown) (no (unknown) (unknown) benefitting from (units (unknown) date) therapy and unknown) willing to continue with CPAP. (unknown) (no (unknown) (unknown) bring your (units (unk nown) date) problems to bed. unknown) (unknown) (no (unknown) (unknown) but increased (units ( unknown) date) benefit from more unknown) usage was also explained. (unknown) (no (unknown) (unknown) by trouble (units (unk nown) date) staying asleep unknown) and non-restorative sleep. This can be seen secondary (unknown) (no (unknown) (unknown) can be seen (units (un known) date) secondary to unknown) sleep apnea, insomnia, depression, medical conditions (unknown) (no (unknown) (unknown) clearly (units (unkno wn) date) benefitting from unknown) therapy and willing to continue with CPAP. (unknown) (no (unknown) (unknown) comfortable, the (units (unknown) date) room should be unknown) quiet, not too hot or cold, or too bright. (unknown) (no (unknown) (unknown) conversations (units ( unknown) date) and activities unknown) before trying to go to sleep. Don't dwell on, or (unknown) (no (unknown) (unknown) daytime sleeping (units (unknown) date) and an elevated unknown) [place] Sleepiness Scale score of 18/24. This (unknown) (no (unknown) (unknown) dishes. And, (units (u nknown) date) remember, unknown) chocolate has caffeine. (unknown) (no (unknown) (unknown) done before bed (units (unknown) date) to help initiate unknown) a restful night's sleep. (unknown) (no (unknown) (unknown) down to 86%. (units (u nknown) date) CPAP initiated. unknown) (unknown) (no (unknown) (unknown) drowsy. (units (unkno wn) date) unknown) (unknown) (no (unknown) (unknown) findings (units (unkno wn) date) discussed. unknown) Compliance is excellent with optimal AHI flow. He is (unknown) (no (unknown) (unknown) have occurred. (units (unknown) date) If there are any unknown) questions, please contact the Medical Records (unknown) (no (unknown) (unknown) instructed to (units ( unknown) date) return sooner if unknown) any questions or concerns arise. (unknown) (no (unknown) (unknown) listen to the (units ( unknown) date) radio, or read as unknown) if you associate falling asleep with these (unknown) (no (unknown) (unknown) may occur. (units (unk nown) date) Occasional unknown) wrong-word or 'sound-alike' substitutions may have (unknown) (no (unknown) (unknown) nasal saline and (units (unknown) date) internal and unknown) external nasal dilator therapies were discussed. (unknown) (no (unknown) (unknown) occurred due to (units (unknown) date) the inherent unknown) limitations of voice recognition software. Please (unknown) (no (unknown) (unknown) older people who (units (unknown) date) may not venture unknown) outside as frequently as children and adults. (unknown) (no (unknown) (unknown) on PAP well, (units (un known) date) sleep quality unknown) well and daytime sleepiness Daytime Sleepiness Branch (unknown) (no (unknown) (unknown) on the sleep (units (u nknown) date) study. unknown) (unknown) (no (unknown) (unknown) optimal sleep (units ( unknown) date) schedule. unknown) (unknown) (no (unknown) (unknown) or can be a (units (un known) date) primary problem. unknown) Risks and symptoms of drowsiness were reviewed. (unknown) (no (unknown) (unknown) pattern. NPSG (units ( unknown) date) consistent with unknown) moderate LORI (AHI 15.2) with desaturation events (unknown) (no (unknown) (unknown) personal (units (unkno wn) date) electronic unknown) devices, can also help maintain a healthy sleep-wake cycle. (unknown) (no (unknown) (unknown) read the note (units ( unknown) date) carefully and unknown) recognize, using context, where these substitutions (unknown) (no (unknown) (unknown) resolution of (units ( unknown) date) snoring and unknown) decreased daytime sleepiness. He is clearly (unknown) (no (unknown) (unknown) sentences and no (units (unknown) date) audible wheezes unknown) (unknown) (no (unknown) (unknown) software. 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 A relaxing exercise, like yoga, can be (unknown) (no (unknown) (unknown) the second half (units (unknown) date) as the body unknown) begins to metabolize the alcohol, causing arousal. (unknown) (no (unknown) (unknown) the sleep study. (units (unknown) date) unknown) (unknown) (no (unknown) (unknown) to sleep apnea, (units (unknown) date) depression, unknown) medical conditions or can be an independent problem. (unknown) (no (unknown) (unknown) treatment (units (unkn own) date) improving on unknown) treatment (unknown) (no (unknown) (unknown) with a sleep (units (u nknown) date) problem, it's not unknown) a good time to start experimenting with spicy (unknown) (no (unknown) (unknown) with the machine (units (unknown) date) or pressure. He unknown) is showing positive clinical improvement with Result panel 3 (unknown) (no (unknown) (unknown) (no value) (units (unk nown) date) unknown) (unknown) (no (unknown) (unknown) (1) Obstructive (units (unknown) date) sleep apnea of unknown) adult: (unknown) (no (unknown) (unknown) (2) Excessive (units ( unknown) date) daytime unknown) sleepiness: (unknown) (no (unknown) (unknown) (3) Insomnia: (units ( unknown) date) unknown) (unknown) (no (unknown) (unknown) (4) History of (units (unknown) date) snoring: unknown) (unknown) (no (unknown) (unknown) 09/10/22 (units (unkno wn) date) unknown) (unknown) (no (unknown) (unknown) 2: better (units (unkn own) date) unknown) (unknown) (no (unknown) (unknown) [id number] (units (unkno wn) date) unknown) (unknown) (no (unknown) (unknown) 86%. CPAP (units (unkn own) date) initiated. 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 unknown) It's not a good idea to use your bed to watch TV, (unknown) (no (unknown) (unknown) Attending Dr: (units ( unknown) date) Paradise Rich unknown) BRITTANY (unknown) (no (unknown) (unknown) Attitude: (units (unkn own) date) cooperative unknown) (unknown) (no (unknown) (unknown) Auto CPAP set (units ( unknown) date) pressures: 5-15 unknown) CWP (unknown) (no (unknown) (unknown) Avoid alcohol (units ( unknown) date) after 4 pm unknown) (unknown) (no (unknown) (unknown) Avoid (units (unkno wn) date) medications which unknown) may interfere with sleep (unknown) (no (unknown) (unknown) Avoid random (units (u nknown) date) napping during unknown) the day; it can disturb the normal pattern of sleep (unknown) (no (unknown) (unknown) Avoid stimulants (units (unknown) date) such as caffeine, unknown) nicotine, and alcohol too close to bedtime. (unknown) (no (unknown) (unknown) CPAP (5-15 cwp) (units (unknown) date) unknown) (unknown) (no (unknown) (unknown) Chief Complaint: (units (unknown) date) Follow up CPAP unknown) therapy for LORI (unknown) (no (unknown) (unknown) Clinical Course (units (unknown) date) unknown) (unknown) (no (unknown) (unknown) Cognition: (units (unk nown) date) normal cognition unknown) (unknown) (no (unknown) (unknown) Compliance visit (units (unknown) date) unknown) (unknown) (no (unknown) (unknown) Condition is (units (u nknown) date) Onset: Chronic unknown) and ongoing condition (unknown) (no (unknown) (unknown) Conjunctivae: (units ( unknown) date) conjunctivae unknown) normal (unknown) (no (unknown) (unknown) Consider weaning (units (unknown) date) caffeine use, unknown) starting with no caffeine after 3pm (unknown) (no (unknown) (unknown) Const (units (unkno wn) date) unknown) (unknown) (no (unknown) (unknown) Currently using (units (unknown) date) CPAP 5-15 cwp. unknown) Compliance data reviewed, implications of (unknown) (no (unknown) (unknown) Currently using (units (unknown) date) CPAP 5-15 cwp. unknown) Using the device regularly. Reports no concerns (unknown) (no (unknown) (unknown) DME: (units (unkno wn) date) unknown) (unknown) (no (unknown) (unknown) : 1980 (units (unknown) date) Acct:[id number] unknown) (unknown) (no (unknown) (unknown) Dept at (units (unkno wn) date) . unknown) (unknown) (no (unknown) (unknown) Details: (units (unkno wn) date) unknown) (unknown) (no (unknown) (unknown) Device data last (units (unknown) date) 30 days: unknown) (unknown) (no (unknown) (unknown) Device set up: (units (unknown) date) unknown) (unknown) (no (unknown) (unknown) Documented By: (units (unknown) date) Paradise Rich unknown) [facility] 09/10/22 0901 (unknown) (no (unknown) (unknown) Draft (units (unkno wn) date) unknown) (unknown) (no (unknown) (unknown) Drowsy driving (units (unknown) date) handout made unknown) available. (unknown) (no (unknown) (unknown) Ears: hearing (units ( unknown) date) grossly normal unknown) bilaterally (unknown) (no (unknown) (unknown) Effort + (units (unkno wn) date) Inspection: unknown) normal respiratory effort, able to speak in complete (unknown) (no (unknown) (unknown) Ensure adequate (units (unknown) date) exposure to unknown) natural light. This is particularly important for (unknown) (no (unknown) (unknown) Establish a (units (unk nown) date) regular relaxing unknown) bedtime routine. Try to avoid emotionally upsetting (unknown) (no (unknown) (unknown) Exam Narrative (units (unknown) date) unknown) (unknown) (no (unknown) (unknown) Exam Narrative: (units (unknown) date) unknown) (unknown) (no (unknown) (unknown) Exam (units (unkno wn) date) unknown) (unknown) (no (unknown) (unknown) Eyes (units (unkno wn) date) unknown) (unknown) (no (unknown) (unknown) Food can be (units (un known) date) disruptive right unknown) before sleep; stay away from large meals close to (unknown) (no (unknown) (unknown) General: (units (o wn) date) cooperative, unknown) comfortable and no acute distress (unknown) (no (unknown) (unknown) General: patient (units (unknown) date) alert, patient unknown) awake and patient oriented x3 (unknown) (no (unknown) (unknown) Get regular (units (un known) date) moderate exercise unknown) (30 minutes, 3x/week) (unknown) (no (unknown) (unknown) HENMT (units (unkno wn) date) unknown) (unknown) (no (unknown) (unknown) HPI Sleep Follow (units (unknown) date) Up unknown) (unknown) (no (unknown) (unknown) HPI (units (o wn) date) unknown) (unknown) (no (unknown) (unknown) Head: normal to (units (unknown) date) inspection unknown) (unknown) (no (unknown) (unknown) Intake (units (o wn) date) unknown) (unknown) (no (unknown) (unknown) Light exposure (units (unknown) date) during the day unknown) helps maintain a healthy sleep-wake cycle. In (unknown) (no (unknown) (unknown) Loc: SLEEP (units (unk nown) date) unknown) (unknown) (no (unknown) (unknown) Make sure that (units ( unknown) date) the sleep unknown) environment is pleasant and relaxing. The bed should be (unknown) (no (unknown) (unknown) Mask leak. (units (unk nown) date) unknown) (unknown) (no (unknown) (unknown) Medical History (units (unknown) date) (Updated 09/10/22 unknown) @ 09:05 by BRITTANY Maynard) (unknown) (no (unknown) (unknown) Moderate LORI. (units ( unknown) date) Patient reports a unknown) history of snoring and a disturbed sleep (unknown) (no (unknown) (unknown) Mood: congruent (units (unknown) date) mood unknown) (unknown) (no (unknown) (unknown) NPSG consistent (units (unknown) date) with moderate LORI unknown) (AHI 15.2) with desaturation events down to (unknown) (no (unknown) (unknown) Neck (units (unkno wn) date) unknown) (unknown) (no (unknown) (unknown) Neck: normal (units (u nknown) date) visual inspection unknown) (unknown) (no (unknown) (unknown) Neuro (units (unkno wn) date) unknown) (unknown) (no (unknown) (unknown) Obstructive (units (un known) date) sleep apnea of unknown) adult (unknown) (no (unknown) (unknown) PFSH (units (unkno wn) date) unknown) (unknown) (no (unknown) (unknown) Patient has a (units ( unknown) date) history of unknown) chronic snoring. Positional therapy and the use of (unknown) (no (unknown) (unknown) Patient (units (unkno wn) date) instructed to use unknown) scheduled naps as needed for drowsiness safety (unknown) (no (unknown) (unknown) Patient (units (unkno wn) date) prescribed unknown) continued CPAP therapy at 5-15 cwp. No changes made today. (unknown) (no (unknown) (unknown) Patient reports (units (unknown) date) a history of unknown) snoring and a disturbed sleep pattern. There is (unknown) (no (unknown) (unknown) Patient reports (units (unknown) date) symptoms of unknown) chronic insomnia for more than 3 months as evidenced (unknown) (no (unknown) (unknown) Patient (units (unkno wn) date) scheduled for an unknown) attended overnight diagnostic sleep study (unknown) (no (unknown) (unknown) Patient was (units (un known) date) encouraged to unknown) maintain PAP usage at a minimum of 4 hours a night, (unknown) (no (unknown) (unknown) Patient was (units (un known) date) instructed to unknown) avoid driving or operating heavy machinery when (unknown) (no (unknown) (unknown) Patient: (units (unkno wn) date) Jerzy Reeder unknown) MR#: [id number] (unknown) (no (unknown) (unknown) Plan (units (unkno wn) date) unknown) (unknown) (no (unknown) (unknown) Positional (units (unk nown) date) therapy as unknown) needed. (unknown) (no (unknown) (unknown) Prescription (units (u nknown) date) written for unknown) renewal of PAP supplies; (unknown) (no (unknown) (unknown) Properly timed (units (unknown) date) exercise can unknown) promote good sleep. Vigorous exercise should be (unknown) (no (unknown) (unknown) Psych (units (unkno wn) date) unknown) (unknown) (no (unknown) (unknown) Reason For Visit (units (unknown) date) unknown) (unknown) (no (unknown) (unknown) Resp (units (unkno wn) date) unknown) (unknown) (no (unknown) (unknown) Return visit in 6 (units (unknown) date) months to assess unknown) continued response to PAP therapy Patient was (unknown) (no (unknown) (unknown) SWELLING (units (unkno wn) date) unknown) (unknown) (no (unknown) (unknown) Sclera: sclerae (units (unknown) date) normal unknown) (unknown) (no (unknown) (unknown) Signed By: (units (unk nown) date) unknown) (unknown) (no (unknown) (unknown) Sleep Visit (units (un known) date) unknown) (unknown) (no (unknown) (unknown) [facility] (units (unknown) date) Center unknown) (unknown) (no (unknown) (unknown) Sleep hygiene (units ( unknown) date) and sleep unknown) schedules were discussed. This will be reassessed after (unknown) (no (unknown) (unknown) Smoking Status: (units (unknown) date) Never smoker unknown) (unknown) (no (unknown) (unknown) Speech and (units (unk nown) date) Movement: speech unknown) and movement normal (unknown) (no (unknown) (unknown) Speech: speech (units (unknown) date) normal unknown) (unknown) (no (unknown) (unknown) Status: Acute (units ( unknown) date) unknown) (unknown) (no (unknown) (unknown) Sulfa (units (unkno wn) date) (Sulfonamide unknown) Antibiotics) Allergy (Verified 08/15/21 15:22) (unknown) (no (unknown) (unknown) The patient (units (un known) date) reports symptoms unknown) of excessive daytime sleepiness as evidenced by (unknown) (no (unknown) (unknown) This note may (units ( unknown) date) have been all or unknown) partially generated using voice recognition (unknown) (no (unknown) (unknown) This will be (units (u nknown) date) reassessed once unknown) the sleep study has been completed. (unknown) (no (unknown) (unknown) Tobacco + (units (unkn own) date) Substance Use unknown) (unknown) (no (unknown) (unknown) Tobacco Status (units (unknown) date) unknown) (unknown) (no (unknown) (unknown) Treatment (units (unkn own) date) Effects: Pap unknown) Treatment Response/Side Effects: adherent to current PAP (unknown) (no (unknown) (unknown) Treatment (units (unkn own) date) Response/Side unknown) Affects (unknown) (no (unknown) (unknown) Usage: 87% with (units (unknown) date) 83% greater than unknown) 4 hours. Leak 28.4. AHIflow: 1.8 (unknown) (no (unknown) (unknown) Use of nasal (units (u nknown) date) steroids and unknown) montelukast was also reviewed. 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 (unknown) (no (unknown) (unknown) addition, (units (unkn own) date) avoiding unknown) nighttime bright light exposure, which can occur with many (unknown) (no (unknown) (unknown) also a history (units (unknown) date) of hypertension unknown) and depression with a Mallampati score of IV. (unknown) (no (unknown) (unknown) and wakefulness. (units (unknown) date) Scheduled napping unknown) may be considered if appropriate for the (unknown) (no (unknown) (unknown) bedtime. Also (units (u nknown) date) dietary changes unknown) can cause sleep problems, if someone is struggling (unknown) (no (unknown) (unknown) benefitting from (units (unknown) date) therapy and unknown) willing to continue with CPAP. (unknown) (no (unknown) (unknown) bring your (units (unk nown) date) problems to bed. unknown) (unknown) (no (unknown) (unknown) but increased (units ( unknown) date) benefit from more unknown) usage was also explained. (unknown) (no (unknown) (unknown) by trouble (units (unk nown) date) staying asleep unknown) and non-restorative sleep. This can be seen secondary (unknown) (no (unknown) (unknown) can be seen (units (un known) date) secondary to unknown) sleep apnea, insomnia, depression, medical conditions (unknown) (no (unknown) (unknown) clearly (units (unkno wn) date) benefitting from unknown) therapy and willing to continue with CPAP. (unknown) (no (unknown) (unknown) comfortable, the (units (unknown) date) room should be unknown) quiet, not too hot or cold, or too bright. (unknown) (no (unknown) (unknown) conversations (units ( unknown) date) and activities unknown) before trying to go to sleep. Don't dwell on, or (unknown) (no (unknown) (unknown) daytime sleeping (units (unknown) date) and an elevated unknown) [place] Sleepiness Scale score of 18/24. This (unknown) (no (unknown) (unknown) dishes. And, (units (u nknown) date) remember, unknown) chocolate has caffeine. (unknown) (no (unknown) (unknown) done before bed (units (unknown) date) to help initiate unknown) a restful night's sleep. (unknown) (no (unknown) (unknown) down to 86%. (units (u nknown) date) CPAP initiated. unknown) (unknown) (no (unknown) (unknown) drowsy. (units (unkno wn) date) unknown) (unknown) (no (unknown) (unknown) findings (units (unkno wn) date) discussed. unknown) Compliance is excellent with optimal AHI flow. He is (unknown) (no (unknown) (unknown) have occurred. (units (unknown) date) If there are any unknown) questions, please contact the Medical Records (unknown) (no (unknown) (unknown) instructed to (units ( unknown) date) return sooner if unknown) any questions or concerns arise. (unknown) (no (unknown) (unknown) issues to worsen (units (unknown) date) as there is no unknown) further intervention for him. (unknown) (no (unknown) (unknown) listen to the (units ( unknown) date) radio, or read as unknown) if you associate falling asleep with these (unknown) (no (unknown) (unknown) may occur. (units (unk nown) date) Occasional unknown) wrong-word or 'sound-alike' substitutions may have (unknown) (no (unknown) (unknown) nasal saline and (units (unknown) date) internal and unknown) external nasal dilator therapies were discussed. (unknown) (no (unknown) (unknown) occurred due to (units (unknown) date) the inherent unknown) limitations of voice recognition software. Please (unknown) (no (unknown) (unknown) older people who (units (unknown) date) may not venture unknown) outside as frequently as children and adults. (unknown) (no (unknown) (unknown) on PAP well, (units (un known) date) sleep quality unknown) well and daytime sleepiness Daytime Sleepiness Branch (unknown) (no (unknown) (unknown) on the sleep (units (u nknown) date) study. unknown) (unknown) (no (unknown) (unknown) optimal sleep (units ( unknown) date) schedule. unknown) (unknown) (no (unknown) (unknown) or can be a (units (un known) date) primary problem. unknown) Risks and symptoms of drowsiness were reviewed. (unknown) (no (unknown) (unknown) pattern. NPSG (units ( unknown) date) consistent with unknown) moderate LORI (AHI 15.2) with desaturation events (unknown) (no (unknown) (unknown) personal (units (unkno wn) date) electronic unknown) devices, can also help maintain a healthy sleep-wake cycle. (unknown) (no (unknown) (unknown) read the note (units ( unknown) date) carefully and unknown) recognize, using context, where these substitutions (unknown) (no (unknown) (unknown) resolution of (units ( unknown) date) snoring and unknown) decreased daytime sleepiness. He is clearly (unknown) (no (unknown) (unknown) sentences and no (units (unknown) date) audible wheezes unknown) (unknown) (no (unknown) (unknown) software. 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 Mask blows unknown) air to his eyes and this wakes him up. Has been (unknown) (no (unknown) (unknown) taken in the (units (u nknown) date) morning or late unknown) afternoon. A relaxing exercise, like yoga, can be (unknown) (no (unknown) (unknown) the second half (units (unknown) date) as the body unknown) begins to metabolize the alcohol, causing arousal. (unknown) (no (unknown) (unknown) the sleep study. (units (unknown) date) unknown) (unknown) (no (unknown) (unknown) to sleep apnea, (units (unknown) date) depression, unknown) medical conditions or can be an independent problem. (unknown) (no (unknown) (unknown) treatment (units (unkn own) date) improving on unknown) treatment (unknown) (no (unknown) (unknown) with a sleep (units (u nknown) date) problem, it's not unknown) a good time to start experimenting with spicy (unknown) (no (unknown) (unknown) with the machine (units (unknown) date) or pressure. He unknown) is showing positive clinical improvement with (unknown) (no (unknown) (unknown) working with (units (u nknown) date) [employer] and does unknown) not feel this is working. Does not want his eye Result panel 4 (unknown) (no (unknown) (unknown) (no value) (units (unk nown) date) unknown) (unknown) (no (unknown) (unknown) (1) Obstructive (units (unknown) date) sleep apnea of unknown) adult: (unknown) (no (unknown) (unknown) (2) Excessive (units ( unknown) date) daytime unknown) sleepiness: (unknown) (no (unknown) (unknown) (3) Insomnia: (units ( unknown) date) unknown) (unknown) (no (unknown) (unknown) (4) History of (units (unknown) date) snoring: unknown) (unknown) (no (unknown) (unknown) 0 = Would never (units (unknown) date) doze or sleep, 1 unknown) = Slight chance of dozing or sleeping, 2 = (unknown) (no (unknown) (unknown) 09/10/22 (units (unkno wn) date) unknown) (unknown) (no (unknown) (unknown) 2: better (units (unkn own) date) unknown) (unknown) (no (unknown) (unknown) [id number] (units (unkno wn) date) unknown) (unknown) (no (unknown) (unknown) 86%. CPAP (units (unkn own) date) initiated. 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 unknown) It's not a good idea to use your bed to watch TV, (unknown) (no (unknown) (unknown) Attending Dr: (units ( unknown) date) Paradise Rich unknown) PERSONAL CARE SERVICE PROVIDER (unknown) (no (unknown) (unknown) Attitude: (units (unkn own) date) cooperative unknown) (unknown) (no (unknown) (unknown) Auto CPAP set (units ( unknown) date) pressures: 5-15 unknown) CWP (unknown) (no (unknown) (unknown) Avoid alcohol (units ( unknown) date) after 4 pm unknown) (unknown) (no (unknown) (unknown) Avoid (units (unkno wn) date) medications which unknown) may interfere with sleep (unknown) (no (unknown) (unknown) Avoid random (units (u nknown) date) napping during unknown) the day; it can disturb the normal pattern of sleep (unknown) (no (unknown) (unknown) Avoid stimulants (units (unknown) date) such as caffeine, unknown) nicotine, and alcohol too close to bedtime. (unknown) (no (unknown) (unknown) Being a (units (unkno wn) date) passenger in a unknown) motor vehicle for an hour or so: 1 = Slight (unknown) (no (unknown) (unknown) CPAP (5-15 cwp) (units (unknown) date) unknown) (unknown) (no (unknown) (unknown) Chief Complaint: (units (unknown) date) Follow up CPAP unknown) therapy for LORI (unknown) (no (unknown) (unknown) Clinical Course (units (unknown) date) unknown) (unknown) (no (unknown) (unknown) Cognition: (units (unk nown) date) normal cognition unknown) (unknown) (no (unknown) (unknown) Compliance visit (units (unknown) date) unknown) (unknown) (no (unknown) (unknown) Condition is (units (u nknown) date) Onset: Chronic unknown) and ongoing condition (unknown) (no (unknown) (unknown) Conjunctivae: (units ( unknown) date) conjunctivae unknown) normal (unknown) (no (unknown) (unknown) Consider weaning (units (unknown) date) caffeine use, unknown) starting with no caffeine after 3pm (unknown) (no (unknown) (unknown) Const (units (unkno wn) date) unknown) (unknown) (no (unknown) (unknown) Currently using (units (unknown) date) CPAP 5-15 cwp. unknown) Compliance data reviewed, implications of (unknown) (no (unknown) (unknown) Currently using (units (unknown) date) CPAP 5-15 cwp. unknown) Using the device regularly. Reports no concerns (unknown) (no (unknown) (unknown) DME: (units (unkno wn) date) unknown) (unknown) (no (unknown) (unknown) : 1980 (units (unknown) date) Acct:[id number] unknown) (unknown) (no (unknown) (unknown) Dept at (units (unkno wn) date) . unknown) (unknown) (no (unknown) (unknown) Details: (units (unkno wn) date) unknown) (unknown) (no (unknown) (unknown) Device data last (units (unknown) date) 30 days: unknown) (unknown) (no (unknown) (unknown) Device set up: (units (unknown) date) unknown) (unknown) (no (unknown) (unknown) Documented By: (units (unknown) date) Paradise Rich unknown) [facility] 09/10/22 0901 (unknown) (no (unknown) (unknown) Draft (units (unkno wn) date) unknown) (unknown) (no (unknown) (unknown) Drowsy driving (units (unknown) date) handout made unknown) available. (unknown) (no (unknown) (unknown) Ears: hearing (units ( unknown) date) grossly normal unknown) bilaterally (unknown) (no (unknown) (unknown) Effort + (units (unkno wn) date) Inspection: unknown) normal respiratory effort, able to speak in complete (unknown) (no (unknown) (unknown) Ensure adequate (units (unknown) date) exposure to unknown) natural light. This is particularly important for (unknown) (no (unknown) (unknown) [place] Score: (units (unknown) date) 10 unknown) (unknown) (no (unknown) (unknown) [place] (units (unkno wn) date) Sleepiness Scale unknown) (unknown) (no (unknown) (unknown) Establish a (units (unk nown) date) regular relaxing unknown) bedtime routine. Try to avoid emotionally upsetting (unknown) (no (unknown) (unknown) Exam Narrative (units (unknown) date) unknown) (unknown) (no (unknown) (unknown) Exam Narrative: (units (unknown) date) unknown) (unknown) (no (unknown) (unknown) Exam (units (unkno wn) date) unknown) (unknown) (no (unknown) (unknown) Eyes (units (unkno wn) date) unknown) (unknown) (no (unknown) (unknown) Food can be (units (un known) date) disruptive right unknown) before sleep; stay away from large meals close to (unknown) (no (unknown) (unknown) General: (units (unkno wn) date) cooperative, unknown) comfortable and no acute distress (unknown) (no (unknown) (unknown) General: patient (units (unknown) date) alert, patient unknown) awake and patient oriented x3 (unknown) (no (unknown) (unknown) Get regular (units (un known) date) moderate exercise unknown) (30 minutes, 3x/week) (unknown) (no (unknown) (unknown) HENMT (units (unkno wn) date) unknown) (unknown) (no (unknown) (unknown) HPI Sleep Follow (units (unknown) date) Up unknown) (unknown) (no (unknown) (unknown) HPI (units (unkno wn) date) unknown) (unknown) (no (unknown) (unknown) Head: normal to (units (unknown) date) inspection unknown) (unknown) (no (unknown) (unknown) Intake (units (unkno wn) date) unknown) (unknown) (no (unknown) (unknown) Light exposure (units (unknown) date) during the day unknown) helps maintain a healthy sleep-wake cycle. In (unknown) (no (unknown) (unknown) Loc: SLEEP (units (unk nown) date) unknown) (unknown) (no (unknown) (unknown) Lying down in (units ( unknown) date) the afternoon: 2 unknown) = Moderate (unknown) (no (unknown) (unknown) Make sure that (units ( unknown) date) the sleep unknown) environment is pleasant and relaxing. The bed should be (unknown) (no (unknown) (unknown) Mask leak. (units (unk nown) date) unknown) (unknown) (no (unknown) (unknown) Medical History (units (unknown) date) (Updated 09/10/22 unknown) @ 09:05 by BRITTANY Maynard) (unknown) (no (unknown) (unknown) Moderate LORI. (units ( unknown) date) Patient reports a unknown) history of snoring and a disturbed sleep (unknown) (no (unknown) (unknown) Moderate chance (units (unknown) date) of dozing or unknown) sleeping, 3 = High chance of dozing or sleeping (unknown) (no (unknown) (unknown) Mood: congruent (units (unknown) date) mood unknown) (unknown) (no (unknown) (unknown) NPSG consistent (units (unknown) date) with moderate LORI unknown) (AHI 15.2) with desaturation events down to (unknown) (no (unknown) (unknown) Neck (units (unkno wn) date) unknown) (unknown) (no (unknown) (unknown) Neck: normal (units (u nknown) date) visual inspection unknown) (unknown) (no (unknown) (unknown) Neuro (units (unkno wn) date) unknown) (unknown) (no (unknown) (unknown) Obstructive (units (un known) date) sleep apnea of unknown) adult (unknown) (no (unknown) (unknown) PFSH (units (unkno wn) date) unknown) (unknown) (no (unknown) (unknown) Patient has a (units ( unknown) date) history of unknown) chronic snoring. Positional therapy and the use of (unknown) (no (unknown) (unknown) Patient (units (unkno wn) date) instructed to use unknown) scheduled naps as needed for drowsiness safety (unknown) (no (unknown) (unknown) Patient (units (unkno wn) date) prescribed unknown) continued CPAP therapy at 5-15 cwp. No changes made today. (unknown) (no (unknown) (unknown) Patient reports (units (unknown) date) a history of unknown) snoring and a disturbed sleep pattern. There is (unknown) (no (unknown) (unknown) Patient reports (units (unknown) date) symptoms of unknown) chronic insomnia for more than 3 months as evidenced (unknown) (no (unknown) (unknown) Patient (units (unkno wn) date) scheduled for an unknown) attended overnight diagnostic sleep study (unknown) (no (unknown) (unknown) Patient was (units (un known) date) encouraged to unknown) maintain PAP usage at a minimum of 4 hours a night, (unknown) (no (unknown) (unknown) Patient was (units (un known) date) instructed to unknown) avoid driving or operating heavy machinery when (unknown) (no (unknown) (unknown) Patient: (units (unkno wn) date) Jerzy Reeder unknown) MR#: [id number] (unknown) (no (unknown) (unknown) Plan (units (unkno wn) date) unknown) (unknown) (no (unknown) (unknown) Positional (units (unk nown) date) therapy as unknown) needed. (unknown) (no (unknown) (unknown) Prescription (units (u nknown) date) written for unknown) renewal of PAP supplies; (unknown) (no (unknown) (unknown) Properly timed (units (unknown) date) exercise can unknown) promote good sleep. Vigorous exercise should be (unknown) (no (unknown) (unknown) Psych (units (unkno wn) date) unknown) (unknown) (no (unknown) (unknown) Questionnaires (units (unknown) date) unknown) (unknown) (no (unknown) (unknown) Reason For Visit (units (unknown) date) unknown) (unknown) (no (unknown) (unknown) Resp (units (unkno wn) date) unknown) (unknown) (no (unknown) (unknown) Return visit in 6 (units (unknown) date) months to assess unknown) continued response to PAP therapy Patient was (unknown) (no (unknown) (unknown) SWELLING (units (unkno wn) date) unknown) (unknown) (no (unknown) (unknown) Sclera: sclerae (units (unknown) date) normal unknown) (unknown) (no (unknown) (unknown) Signed By: (units (unk nown) date) unknown) (unknown) (no (unknown) (unknown) Sitting and (units (un known) date) Readin = unknown) Moderate (unknown) (no (unknown) (unknown) Sitting and (units (un known) date) talking to unknown) someone: 0 = Never (None) (unknown) (no (unknown) (unknown) Sitting inactive (units (unknown) date) in a public unknown) place: 1 = Slight (unknown) (no (unknown) (unknown) Sitting quietly (units (unknown) date) after lunch (no unknown) alcohol): 2 = Moderate (unknown) (no (unknown) (unknown) Sleep Visit (units (un known) date) unknown) (unknown) (no (unknown) (unknown) [facility] unknown) (unknown) (no (unknown) (unknown) Sleep hygiene (units ( unknown) date) and sleep unknown) schedules were discussed. This will be reassessed after (unknown) (no (unknown) (unknown) Smoking Status: (units (unknown) date) Never smoker unknown) (unknown) (no (unknown) (unknown) Speech and (units (unk nown) date) Movement: speech unknown) and movement normal (unknown) (no (unknown) (unknown) Speech: speech (units (unknown) date) normal unknown) (unknown) (no (unknown) (unknown) Status: Acute (units ( unknown) date) unknown) (unknown) (no (unknown) (unknown) Stopped for a (units ( unknown) date) few minutes in unknown) traffic: 0 = Never (None) (unknown) (no (unknown) (unknown) Sulfa (units (unkno wn) date) (Sulfonamide unknown) Antibiotics) Allergy (Verified 08/15/21 15:22) (unknown) (no (unknown) (unknown) The patient (units (un known) date) reports symptoms unknown) of excessive daytime sleepiness as evidenced by (unknown) (no (unknown) (unknown) This note may (units ( unknown) date) have been all or unknown) partially generated using voice recognition (unknown) (no (unknown) (unknown) This will be (units (u nknown) date) reassessed once unknown) the sleep study has been completed. (unknown) (no (unknown) (unknown) Tobacco + (units (unkn own) date) Substance Use unknown) (unknown) (no (unknown) (unknown) Tobacco Status (units (unknown) date) unknown) (unknown) (no (unknown) (unknown) Treatment (units (unkn own) date) Effects: Pap unknown) Treatment Response/Side Effects: adherent to current PAP (unknown) (no (unknown) (unknown) Treatment (units (unkn own) date) Response/Side unknown) Affects (unknown) (no (unknown) (unknown) Usage: 87% with (units (unknown) date) 83% greater than unknown) 4 hours. Leak 28.4. AHIflow: 1.8 (unknown) (no (unknown) (unknown) Use of nasal (units (u nknown) date) steroids and unknown) montelukast was also reviewed. 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) (unknown) (no (unknown) (unknown) Visit type (FU): (units (unknown) date) follow up of LORI unknown) therapy Follow up evaluation of LORI therapy: (unknown) (no (unknown) (unknown) Watching TV: 2 = (units (unknown) date) Moderate unknown) (unknown) (no (unknown) (unknown) While alcohol is (units (unknown) date) well known to unknown) speed the onset of sleep, it disrupts sleep in (unknown) (no (unknown) (unknown) addition, (units (unkn own) date) avoiding unknown) nighttime bright light exposure, which can occur with many (unknown) (no (unknown) (unknown) also a history (units (unknown) date) of hypertension unknown) and depression with a Mallampati score of IV. (unknown) (no (unknown) (unknown) and wakefulness. (units (unknown) date) Scheduled napping unknown) may be considered if appropriate for the o (unknown) (no (unknown) (unknown) bedtime. Also (units (u nknown) date) dietary changes unknown) can cause sleep problems, if someone is struggling (unknown) (no (unknown) (unknown) benefitting from (units (unknown) date) therapy and unknown) willing to continue with CPAP. (unknown) (no (unknown) (unknown) bring your (units (unk nown) date) problems to bed. unknown) (unknown) (no (unknown) (unknown) but increased (units ( unknown) date) benefit from more unknown) usage was also explained. (unknown) (no (unknown) (unknown) by trouble (units (unk nown) date) staying asleep unknown) and non-restorative sleep. This can be seen secondary (unknown) (no (unknown) (unknown) can be seen (units (un known) date) secondary to unknown) sleep apnea, insomnia, depression, medical conditions (unknown) (no (unknown) (unknown) clearly (units (unkno wn) date) benefitting from unknown) therapy and willing to continue with CPAP. (unknown) (no (unknown) (unknown) comfortable, the (units (unknown) date) room should be unknown) quiet, not too hot or cold, or too bright. (unknown) (no (unknown) (unknown) conversations (units ( unknown) date) and activities unknown) before trying to go to sleep. Don't dwell on, or (unknown) (no (unknown) (unknown) daytime sleeping (units (unknown) date) and an elevated unknown) [place] Sleepiness Scale score of 18/24. This (unknown) (no (unknown) (unknown) dishes. And, (units (u nknown) date) remember, unknown) chocolate has caffeine. (unknown) (no (unknown) (unknown) done before bed (units (unknown) date) to help initiate unknown) a restful night's sleep. (unknown) (no (unknown) (unknown) down to 86%. (units (u nknown) date) CPAP initiated. unknown) (unknown) (no (unknown) (unknown) drowsy. (units (unkno wn) date) unknown) (unknown) (no (unknown) (unknown) findings (units (unkno wn) date) discussed. unknown) Compliance is excellent with optimal AHI flow. He is (unknown) (no (unknown) (unknown) have occurred. (units (unknown) date) If there are any unknown) questions, please contact the Medical Records (unknown) (no (unknown) (unknown) instructed to (units ( unknown) date) return sooner if unknown) any questions or concerns arise. (unknown) (no (unknown) (unknown) issues to worsen (units (unknown) date) as there is no unknown) further intervention for him. (unknown) (no (unknown) (unknown) listen to the (units ( unknown) date) radio, or read as unknown) if you associate falling asleep with these acti (unknown) (no (unknown) (unknown) may occur. (units (unk nown) date) Occasional unknown) wrong-word or 'sound-alike' substitutions may have (unknown) (no (unknown) (unknown) nasal saline and (units (unknown) date) internal and unknown) external nasal dilator therapies were discussed. (unknown) (no (unknown) (unknown) occurred due to (units (unknown) date) the inherent unknown) limitations of voice recognition software. Please (unknown) (no (unknown) (unknown) older people who (units (unknown) date) may not venture unknown) outside as frequently as children and adults. (unknown) (no (unknown) (unknown) on PAP well, (units (un known) date) sleep quality unknown) well and daytime sleepiness Daytime Sleepiness Branch (unknown) (no (unknown) (unknown) on the sleep (units (u nknown) date) study. unknown) (unknown) (no (unknown) (unknown) or can be a (units (un known) date) primary problem. unknown) Risks and symptoms of drowsiness were reviewed. (unknown) (no (unknown) (unknown) pattern. NPSG (units ( unknown) date) consistent with unknown) moderate LORI (AHI 15.2) with desaturation events (unknown) (no (unknown) (unknown) personal (units (unkno wn) date) electronic unknown) devices, can also help maintain a healthy sleep-wake cycle. (unknown) (no (unknown) (unknown) ptimal sleep (units (u nknown) date) schedule. unknown) (unknown) (no (unknown) (unknown) read the note (units ( unknown) date) carefully and unknown) recognize, using context, where these substitutions (unknown) (no (unknown) (unknown) resolution of (units ( unknown) date) snoring and unknown) decreased daytime sleepiness. He is clearly (unknown) (no (unknown) (unknown) sentences and no (units (unknown) date) audible wheezes unknown) (unknown) (no (unknown) (unknown) software. 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 Mask blows unknown) air to his eyes and this wakes him up. Has been (unknown) (no (unknown) (unknown) taken in the (units (u nknown) date) morning or late unknown) afternoon. A relaxing exercise, like yoga, can be (unknown) (no (unknown) (unknown) the second half (units (unknown) date) as the body unknown) begins to metabolize the alcohol, causing arousal. (unknown) (no (unknown) (unknown) the sleep study. (units (unknown) date) unknown) (unknown) (no (unknown) (unknown) to sleep apnea, (units (unknown) date) depression, unknown) medical conditions or can be an independent problem. (unknown) (no (unknown) (unknown) treatment (units (unkn own) date) improving on unknown) treatment (unknown) (no (unknown) (unknown) vities, you may (units (unknown) date) have more unknown) problems getting back to sleep during the night. (unknown) (no (unknown) (unknown) with a sleep (units (u nknown) date) problem, it's not unknown) a good time to start experimenting with spicy (unknown) (no (unknown) (unknown) with the machine (units (unknown) date) or pressure. He unknown) is showing positive clinical improvement with (unknown) (no (unknown) (unknown) working with (units (u nknown) date) [employer] and does unknown) not feel this is working. Does not want his eye Result panel 5 (unknown) (no (unknown) (unknown) (no value) (units (unk nown) date) unknown) (unknown) (no (unknown) (unknown) (1) Obstructive (units (unknown) date) sleep apnea of adult: unknown) (unknown) (no (unknown) (unknown) (2) Excessive (units ( unknown) date) daytime sleepiness: unknown) (unknown) (no (unknown) (unknown) (3) Insomnia: (units ( unknown) date) unknown) (unknown) (no (unknown) (unknown) (4) History of (units (unknown) date) snoring: unknown) (unknown) (no (unknown) (unknown) 0 = Would never doze (uni ts (unknown) date) or sleep, 1 = Slight unknown) chance of dozing or sleeping, 2 = (unknown) (no (unknown) (unknown) 09/10/22 (units (unkno wn) date) unknown) (unknown) (no (unknown) (unknown) 2: better (units (unkn own) date) unknown) (unknown) (no (unknown) (unknown) [id number] (units (unkno wn) date) unknown) (unknown) (no (unknown) (unknown) 86%. CPAP initiated. (uni ts (unknown) date) unknown) (unknown) (no (unknown) (unknown) Add'l Complaint: (units (unknown) date) unknown) (unknown) (no (unknown) (unknown) Adhere to regular (units (unknown) date) mealtime schedule, unknown) avoid snacking (unknown) (no (unknown) (unknown) Affect: normal (units (unknown) date) affect unknown) (unknown) (no (unknown) (unknown) Age/Sex: 42 / M Date (uni ts (unknown) date) of Service: unknown) (unknown) (no (unknown) (unknown) Allergies (units (unkn own) date) unknown) (unknown) (no (unknown) (unknown) [place] [address] (unit s (unknown) date) unknown) (unknown) (no (unknown) (unknown) 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 It's not unknown) a good idea to use your bed to watch TV, (unknown) (no (unknown) (unknown) Attending Dr: Paradise (unit s (unknown) date) Layla SOTO unknown) (unknown) (no (unknown) (unknown) Attitude: (units (unkn own) date) cooperative unknown) (unknown) (no (unknown) (unknown) Auto CPAP set (units ( unknown) date) pressures: 5-15 CWP unknown) (unknown) (no (unknown) (unknown) Avoid alcohol after (unit s (unknown) date) 4 pm unknown) (unknown) (no (unknown) (unknown) Avoid medications (units (unknown) date) which may interfere unknown) with sleep (unknown) (no (unknown) (unknown) Avoid random napping (uni ts (unknown) date) during the day; it unknown) can disturb the normal pattern of sleep (unknown) (no (unknown) (unknown) Avoid stimulants (units (unknown) date) such as caffeine, unknown) nicotine, and alcohol too close to bedtime. (unknown) (no (unknown) (unknown) Being a passenger in (uni ts (unknown) date) a motor vehicle for unknown) an hour or so: 1 = Slight (unknown) (no (unknown) (unknown) CPAP (5-15 cwp) (units (unknown) date) unknown) (unknown) (no (unknown) (unknown) Caffeine Branch: no (unit s (unknown) date) and denies sleeping unknown) pills (unknown) (no (unknown) (unknown) Cardiac (units (unkno wn) date) unknown) (unknown) (no (unknown) (unknown) Chief Complaint: (units (unknown) date) Follow up CPAP unknown) therapy for LORI (unknown) (no (unknown) (unknown) Clinical Course (units (unknown) date) unknown) (unknown) (no (unknown) (unknown) Cognition: normal (units (unknown) date) cognition unknown) (unknown) (no (unknown) (unknown) Compliance visit (units (unknown) date) unknown) (unknown) (no (unknown) (unknown) Condition is Onset: (unit s (unknown) date) Chronic and ongoing unknown) condition (unknown) (no (unknown) (unknown) Conjunctivae: (units ( unknown) date) conjunctivae normal unknown) (unknown) (no (unknown) (unknown) Consider weaning (units (unknown) date) caffeine use, unknown) starting with no caffeine after 3pm (unknown) (no (unknown) (unknown) Const (units (unkno wn) date) unknown) (unknown) (no (unknown) (unknown) Currently using CPAP (uni ts (unknown) date) 5-15 cwp. Compliance unknown) data reviewed, implications of (unknown) (no (unknown) (unknown) Currently using CPAP (uni ts (unknown) date) 5-15 cwp. Using the unknown) device regularly. Reports no concerns (unknown) (no (unknown) (unknown) DME: [employer] (units (un known) date) unknown) (unknown) (no (unknown) (unknown) : 1980 (units (unknown) date) Acct:[id number] unknown) (unknown) (no (unknown) (unknown) Denies bloating on (units (unknown) date) CPAP unknown) (unknown) (no (unknown) (unknown) Denies chest pain (units (unknown) date) unknown) (unknown) (no (unknown) (unknown) Denies dyspnea at (units (unknown) date) night unknown) (unknown) (no (unknown) (unknown) Dept at (units (unkno wn) date) . unknown) (unknown) (no (unknown) (unknown) Details: (units (unkno wn) date) unknown) (unknown) (no (unknown) (unknown) Device data last 30 (unit s (unknown) date) days: unknown) (unknown) (no (unknown) (unknown) Device set up: (units (unknown) date) 07/14/2022 unknown) (unknown) (no (unknown) (unknown) Documented By: (units (unknown) date) Paradise Rich unknown) 09/10/22 0901 (unknown) (no (unknown) (unknown) Draft (units (unkno wn) date) unknown) (unknown) (no (unknown) (unknown) Drowsy driving (units (unknown) date) handout made unknown) available. (unknown) (no (unknown) (unknown) Ears: hearing (units ( unknown) date) grossly normal unknown) bilaterally (unknown) (no (unknown) (unknown) Effort + Inspection: (uni ts (unknown) date) normal respiratory unknown) effort, able to speak in complete (unknown) (no (unknown) (unknown) Ensure adequate (units (unknown) date) exposure to natural unknown) light. This is particularly important for (unknown) (no (unknown) (unknown) [place] Score: 10 (units (unknown) date) unknown) (unknown) (no (unknown) (unknown) [place] Sleepiness (units (unknown) date) Scale unknown) (unknown) (no (unknown) (unknown) Establish a regular (units (unknown) date) relaxing bedtime unknown) routine. Try to avoid emotionally upsetting (unknown) (no (unknown) (unknown) Exacerbating/Allevia (uni ts (unknown) date) ting Factors unknown) (unknown) (no (unknown) (unknown) Exam Narrative (units (unknown) date) unknown) (unknown) (no (unknown) (unknown) Exam Narrative: (units (unknown) date) unknown) (unknown) (no (unknown) (unknown) Exam (units (unkno wn) date) unknown) (unknown) (no (unknown) (unknown) Eyes (units (unkno wn) date) unknown) (unknown) (no (unknown) (unknown) Food can be (units (un known) date) disruptive right unknown) before sleep; stay away from large meals close to (unknown) (no (unknown) (unknown) GI (units (unkno wn) date) unknown) (unknown) (no (unknown) (unknown) General: (units (unkno wn) date) cooperative, unknown) comfortable and no acute distress (unknown) (no (unknown) (unknown) General: patient (units (unknown) date) alert, patient awake unknown) and patient oriented x3 (unknown) (no (unknown) (unknown) Get regular moderate (uni ts (unknown) date) exercise (30 minutes, unknown) 3x/week) (unknown) (no (unknown) (unknown) HENMT (units (unkno wn) date) unknown) (unknown) (no (unknown) (unknown) HPI Sleep Follow Up (unit s (unknown) date) unknown) (unknown) (no (unknown) (unknown) HPI (units (unkno wn) date) unknown) (unknown) (no (unknown) (unknown) HYDROCHLOROTHIAZIDE (unit s (unknown) date) PO 08/15/21 [History unknown) Confirmed 09/10/22] (unknown) (no (unknown) (unknown) Head: normal to (units (unknown) date) inspection unknown) (unknown) (no (unknown) (unknown) Intake (units (unkno wn) date) unknown) (unknown) (no (unknown) (unknown) Loc: SLEEP (units (unk nown) date) unknown) (unknown) (no (unknown) (unknown) Lying down in the (units (unknown) date) afternoon: 2 = unknown) Moderate (unknown) (no (unknown) (unknown) Make sure that the (units (unknown) date) sleep environment is unknown) pleasant and relaxing. The bed should be (unknown) (no (unknown) (unknown) Mask leak. (units (unk nown) date) unknown) (unknown) (no (unknown) (unknown) Medical History (units (unknown) date) (Updated 09/10/22 @ unknown) 09:05 by BRITTANY Maynard) (unknown) (no (unknown) (unknown) Medications (units (un known) date) unknown) (unknown) (no (unknown) (unknown) Moderate LORI. (units ( unknown) date) Patient reports a unknown) history of snoring and a disturbed sleep (unknown) (no (unknown) (unknown) Moderate chance of (units (unknown) date) dozing or sleeping, 3 unknown) = High chance of dozing or sleeping (unknown) (no (unknown) (unknown) Mood: congruent mood (uni ts (unknown) date) unknown) (unknown) (no (unknown) (unknown) NPSG consistent with (uni ts (unknown) date) moderate LORI (AHI unknown) 15.2) with desaturation events down to (unknown) (no (unknown) (unknown) Neck (units (unkno wn) date) unknown) (unknown) (no (unknown) (unknown) Neck: normal visual (unit s (unknown) date) inspection unknown) (unknown) (no (unknown) (unknown) Neuro (units (unkno wn) date) unknown) (unknown) (no (unknown) (unknown) Obstructive sleep (units (unknown) date) apnea of adult unknown) (unknown) (no (unknown) (unknown) PFSH (units (unkno wn) date) unknown) (unknown) (no (unknown) (unknown) Pain scale (1-10): 1 (uni ts (unknown) date) unknown) (unknown) (no (unknown) (unknown) Pain (units (unkno wn) date) unknown) (unknown) (no (unknown) (unknown) Patient has a (units ( unknown) date) history of chronic unknown) snoring. Positional therapy and the use of (unknown) (no (unknown) (unknown) Patient instructed (units (unknown) date) to use scheduled naps unknown) as needed for drowsiness safety (unknown) (no (unknown) (unknown) Patient prescribed (units (unknown) date) continued CPAP unknown) therapy at 5-15 cwp. No changes made today. (unknown) (no (unknown) (unknown) Patient reports a (units (unknown) date) history of snoring unknown) and a disturbed sleep pattern. There is (unknown) (no (unknown) (unknown) Patient reports (units (unknown) date) alcohol Sleep Alcohol unknown) Branch: never, reports caffeine Sleep (unknown) (no (unknown) (unknown) Patient reports (units (unknown) date) difficulty falling unknown) asleep is denied, difficulty staying asleep (unknown) (no (unknown) (unknown) Patient reports (units (unknown) date) symptoms of chronic unknown) insomnia for more than 3 months as evidenced (unknown) (no (unknown) (unknown) Patient scheduled (units (unknown) date) for an attended unknown) overnight diagnostic sleep study (unknown) (no (unknown) (unknown) Patient was (units (un known) date) encouraged to unknown) maintain PAP usage at a minimum of 4 hours a night, (unknown) (no (unknown) (unknown) Patient was (units (un known) date) instructed to avoid unknown) driving or operating heavy machinery when (unknown) (no (unknown) (unknown) Patient: (units (unkno wn) date) Jerzy Reeder MR#: unknown) M000 (unknown) (no (unknown) (unknown) Pertinent (units (unkn own) date) Positives/Negatives unknown) (unknown) (no (unknown) (unknown) Plan (units (unkno wn) date) unknown) (unknown) (no (unknown) (unknown) Positional therapy (units (unknown) date) as needed. unknown) (unknown) (no (unknown) (unknown) Prescription written (uni ts (unknown) date) for renewal of PAP unknown) supplies; (unknown) (no (unknown) (unknown) Properly timed (units (unknown) date) exercise can promote unknown) good sleep. Vigorous exercise should be (unknown) (no (unknown) (unknown) Psych (units (unkno wn) date) unknown) (unknown) (no (unknown) (unknown) Psychological (units ( unknown) date) unknown) (unknown) (no (unknown) (unknown) Questionnaires (units (unknown) date) unknown) (unknown) (no (unknown) (unknown) ROS Sleep (units (unkn own) date) unknown) (unknown) (no (unknown) (unknown) Reason For Visit (units (unknown) date) unknown) (unknown) (no (unknown) (unknown) Reports daytime (units (unknown) date) sleepiness (improved) unknown) and Reports difficulty sleeping (improved) (unknown) (no (unknown) (unknown) Reports napping on (units (unknown) date) occassion unknown) (unknown) (no (unknown) (unknown) Reports seasonal (units (unknown) date) allergies unknown) (unknown) (no (unknown) (unknown) Resp (units (unkno wn) date) unknown) (unknown) (no (unknown) (unknown) Respiratory (units (un known) date) unknown) (unknown) (no (unknown) (unknown) Return visit in 6 (units (unknown) date) months to assess unknown) continued response to PAP therapy Patient was (unknown) (no (unknown) (unknown) SWELLING (units (unkno wn) date) unknown) (unknown) (no (unknown) (unknown) Sclera: sclerae (units (unknown) date) normal unknown) (unknown) (no (unknown) (unknown) Signed By: (units (unk nown) date) unknown) (unknown) (no (unknown) (unknown) Sitting and Reading: (uni ts (unknown) date) 2 = Moderate unknown) (unknown) (no (unknown) (unknown) Sitting and talking (unit s (unknown) date) to someone: 0 = Never unknown) (None) (unknown) (no (unknown) (unknown) Sitting inactive in (unit s (unknown) date) a public place: 1 = unknown) Slight (unknown) (no (unknown) (unknown) Sitting quietly (units (unknown) date) after lunch (no unknown) alcohol): 2 = Moderate (unknown) (no (unknown) (unknown) Sleep Schedule (units (unknown) date) Branch: consistent, unknown) daytime somnolence rare, snoring not (unknown) (no (unknown) (unknown) Sleep Visit (units (un known) date) unknown) (unknown) (no (unknown) (unknown) [facility] unknown) (unknown) (no (unknown) (unknown) Smoking Status: (units (unknown) date) Never smoker unknown) (unknown) (no (unknown) (unknown) Speech and Movement: (uni ts (unknown) date) speech and movement unknown) normal (unknown) (no (unknown) (unknown) Speech: speech (units (unknown) date) normal unknown) (unknown) (no (unknown) (unknown) Status: Acute (units ( unknown) date) unknown) (unknown) (no (unknown) (unknown) Stopped for a few (units (unknown) date) minutes in traffic: 0 unknown) = Never (None) (unknown) (no (unknown) (unknown) Sulfa (Sulfonamide (units (unknown) date) Antibiotics) Allergy unknown) (Verified 09/10/22 11:20) (unknown) (no (unknown) (unknown) Symptoms (units (unkno wn) date) unknown) (unknown) (no (unknown) (unknown) The patient reports (unit s (unknown) date) symptoms of excessive unknown) daytime sleepiness as evidenced by (unknown) (no (unknown) (unknown) This note may have (units (unknown) date) been all or partially unknown) generated using voice recognition (unknown) (no (unknown) (unknown) This will be (units (u nknown) date) reassessed once the unknown) sleep study has been completed. (unknown) (no (unknown) (unknown) Tobacco + Substance (unit s (unknown) date) Use unknown) (unknown) (no (unknown) (unknown) Tobacco Status (units (unknown) date) unknown) (unknown) (no (unknown) (unknown) Treatment Effects: (units (unknown) date) Pap Treatment unknown) Response/Side Effects: adherent to current PAP (unknown) (no (unknown) (unknown) Treatment (units (unkn own) date) Response/Side Affects unknown) (unknown) (no (unknown) (unknown) Usage: 87% with 83% (unit s (unknown) date) greater than 4 hours. unknown) Leak 28.4. AHIflow: 1.8 (unknown) (no (unknown) (unknown) Use of nasal (units (u nknown) date) steroids and unknown) montelukast was also reviewed. 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) (unknown) (no (unknown) (unknown) Visit type (FU): (units (unknown) date) follow up of LORI unknown) therapy Follow up evaluation of LORI therapy: (unknown) (no (unknown) (unknown) Watching TV: 2 = (units (unknown) date) Moderate unknown) (unknown) (no (unknown) (unknown) While alcohol is (units (unknown) date) well known to speed unknown) the onset of sleep, it disrupts sleep in (unknown) (no (unknown) (unknown) [History Confirmed (units (unknown) date) 09/10/22] unknown) (unknown) (no (unknown) (unknown) a little, normal (units (unknown) date) bedtime ([id number]), unknown) normal wake time (0800), sleep schedule (unknown) (no (unknown) (unknown) activities, you may (unit s (unknown) date) have more problems unknown) getting back to sleep during the night. (unknown) (no (unknown) (unknown) addition, avoiding (units (unknown) date) nighttime bright unknown) light exposure, which can occur with many (unknown) (no (unknown) (unknown) also a history of (units (unknown) date) hypertension and unknown) depression with a Mallampati score of IV. (unknown) (no (unknown) (unknown) and wakefulness. (units (unknown) date) Scheduled napping may unknown) be considered if appropriate for the (unknown) (no (unknown) (unknown) appreciated, apnea (units (unknown) date) not witnessed, unknown) choking or gasping Choking or Gasping Branch: (unknown) (no (unknown) (unknown) bedtime. Also dietary (uni ts (unknown) date) changes can cause unknown) sleep problems, if someone is struggling (unknown) (no (unknown) (unknown) benefitting from (units (unknown) date) therapy and willing unknown) to continue with CPAP. (unknown) (no (unknown) (unknown) bring your problems (unit s (unknown) date) to bed. unknown) (unknown) (no (unknown) (unknown) burn symptoms at (units (unknown) date) night, reports unknown) nocturia (once per night), reports pain (back (unknown) (no (unknown) (unknown) but increased (units ( unknown) date) benefit from more unknown) usage was also explained. (unknown) (no (unknown) (unknown) by trouble staying (units (unknown) date) asleep and unknown) non-restorative sleep. This can be seen secondary (unknown) (no (unknown) (unknown) can be seen (units (un known) date) secondary to sleep unknown) apnea, insomnia, depression, medical conditions (unknown) (no (unknown) (unknown) clearly benefitting (unit s (unknown) date) from therapy and unknown) willing to continue with CPAP. (unknown) (no (unknown) (unknown) comfortable, the (units (unknown) date) room should be quiet, unknown) not too hot or cold, or too bright. (unknown) (no (unknown) (unknown) congestion at night, (uni ts (unknown) date) reports dry mouth unknown) (sometimes), denies sore throat in the (unknown) (no (unknown) (unknown) conversations and (units (unknown) date) activities before unknown) trying to go to sleep. Don't dwell on, or (unknown) (no (unknown) (unknown) daytime sleeping and (uni ts (unknown) date) an elevated [place] unknown) Sleepiness Scale score of 18/24. This (unknown) (no (unknown) (unknown) denied, epworth (units (unknown) date) sleep scale score unknown) (09/15) and bruxism Bruxism Branch: denied (unknown) (no (unknown) (unknown) dishes. And, (units (u nknown) date) remember, chocolate unknown) has caffeine. (unknown) (no (unknown) (unknown) done before bed to (units (unknown) date) help initiate a unknown) restful night's sleep. (unknown) (no (unknown) (unknown) down to 86%. CPAP (units (unknown) date) initiated. unknown) (unknown) (no (unknown) (unknown) drowsy. (units (unkno wn) date) unknown) (unknown) (no (unknown) (unknown) durng the day, (units (unknown) date) reports depression unknown) (managed) and reports anxiety (unknown) (no (unknown) (unknown) findings discussed. (unit s (unknown) date) Compliance is unknown) excellent with optimal AHI flow. He is (unknown) (no (unknown) (unknown) have occurred. If (units (unknown) date) there are any unknown) questions, please contact the Medical Records (unknown) (no (unknown) (unknown) ight exposure during (uni ts (unknown) date) the day helps unknown) maintain a healthy sleep-wake cycle. In (unknown) (no (unknown) (unknown) instructed to return (uni ts (unknown) date) sooner if any unknown) questions or concerns arise. (unknown) (no (unknown) (unknown) intermittent, early (unit s (unknown) date) morning awakening unknown) denied, spending time in bed not sleeping (unknown) (no (unknown) (unknown) issues to worsen as (unit s (unknown) date) there is no further unknown) intervention for him. (unknown) (no (unknown) (unknown) lifitegrast 5 % eye (unit s (unknown) date) drops in a unknown) dropperette ([place]) drp EYE-BOTH 08/15/21 (unknown) (no (unknown) (unknown) listen to the radio, (uni ts (unknown) date) or read as if you unknown) associate falling asleep with these (unknown) (no (unknown) (unknown) may occur. (units (unk nown) date) Occasional wrong-word unknown) or 'sound-alike' substitutions may have (unknown) (no (unknown) (unknown) morning, denies (units (unknown) date) nocturnal cough, unknown) denies nocturnal palpitations, denies heart (unknown) (no (unknown) (unknown) nasal saline and (units (unknown) date) internal and external unknown) nasal dilator therapies were discussed. (unknown) (no (unknown) (unknown) occurred due to the (unit s (unknown) date) inherent limitations unknown) of voice recognition software. Please (unknown) (no (unknown) (unknown) older people who may (unit s (unknown) date) not venture outside unknown) as frequently as children and adults. L (unknown) (no (unknown) (unknown) on PAP well, sleep (units (unknown) date) quality well and unknown) daytime sleepiness Daytime Sleepiness Branch (unknown) (no (unknown) (unknown) on the sleep study. (unit s (unknown) date) unknown) (unknown) (no (unknown) (unknown) optimal sleep (units ( unknown) date) schedule. unknown) (unknown) (no (unknown) (unknown) or can be a primary (unit s (unknown) date) problem. Risks and unknown) symptoms of drowsiness were reviewed. (unknown) (no (unknown) (unknown) pain), denies (units ( unknown) date) dizziness in the unknown) morning, denies trouble consentrating/focusin g (unknown) (no (unknown) (unknown) pattern. NPSG (units ( unknown) date) consistent with unknown) moderate LORI (AHI 15.2) with desaturation events (unknown) (no (unknown) (unknown) personal electronic (unit s (unknown) date) devices, can also unknown) help maintain a healthy sleep-wake cycle. (unknown) (no (unknown) (unknown) problem. Sleep (units (unknown) date) hygiene and sleep unknown) schedules were discussed. This will be (unknown) (no (unknown) (unknown) read the note (units ( unknown) date) carefully and unknown) recognize, using context, where these substitutions (unknown) (no (unknown) (unknown) reassessed after the (uni ts (unknown) date) sleep study. unknown) (unknown) (no (unknown) (unknown) reports night (units ( unknown) date) sweats, reports unknown) morning headache (sometimes), denies nasal (unknown) (no (unknown) (unknown) resolution of (units ( unknown) date) snoring and decreased unknown) daytime sleepiness. He is clearly (unknown) (no (unknown) (unknown) sentences and no (units (unknown) date) audible wheezes unknown) (unknown) (no (unknown) (unknown) software. 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 (unit s (unknown) date) Mask blows air to his unknown) eyes and this wakes him up. Has been (unknown) (no (unknown) (unknown) taken in the morning (uni ts (unknown) date) or late afternoon. A unknown) relaxing exercise, like yoga, can be (unknown) (no (unknown) (unknown) the second half as (units (unknown) date) the body begins to unknown) metabolize the alcohol, causing arousal. (unknown) (no (unknown) (unknown) to sleep apnea, (units (unknown) date) depression, medical unknown) conditions or can be an independent (unknown) (no (unknown) (unknown) treatment improving (unit s (unknown) date) on treatment unknown) (unknown) (no (unknown) (unknown) wellbutrin PO DAILY (unit s (unknown) date) 09/10/22 [History] unknown) (unknown) (no (unknown) (unknown) with a sleep (units (u nknown) date) problem, it's not a unknown) good time to start experimenting with spicy (unknown) (no (unknown) (unknown) with the machine or (unit s (unknown) date) pressure. He is unknown) showing positive clinical improvement with (unknown) (no (unknown) (unknown) working with [employer] (unit s (unknown) date) and does not feel unknown) this is working. Does not want his eye Result panel 6 (unknown) (no (unknown) (unknown) (no value) (units (unk nown) date) unknown) (unknown) (no (unknown) (unknown) (1) Obstructive (units (unknown) date) sleep apnea of adult: unknown) (unknown) (no (unknown) (unknown) (2) Excessive (units ( unknown) date) daytime sleepiness: unknown) (unknown) (no (unknown) (unknown) (3) Insomnia: (units ( unknown) date) unknown) (unknown) (no (unknown) (unknown) (4) History of (units (unknown) date) snoring: unknown) (unknown) (no (unknown) (unknown) 0 = Would never doze (uni ts (unknown) date) or sleep, 1 = Slight unknown) chance of dozing or sleeping, 2 = (unknown) (no (unknown) (unknown) 09/10/22 (units (unkno wn) date) unknown) (unknown) (no (unknown) (unknown) 11:21 (units (unkno wn) date) unknown) (unknown) (no (unknown) (unknown) 2: better (units (unkn own) date) unknown) (unknown) (no (unknown) (unknown) [id number] (units (unkno wn) date) unknown) (unknown) (no (unknown) (unknown) 86%. CPAP initiated. (uni ts (unknown) date) unknown) (unknown) (no (unknown) (unknown) Add'l Complaint: (units (unknown) date) unknown) (unknown) (no (unknown) (unknown) Adhere to regular (units (unknown) date) mealtime schedule, unknown) avoid snacking (unknown) (no (unknown) (unknown) Affect: normal (units (unknown) date) affect unknown) (unknown) (no (unknown) (unknown) Age/Sex: 42 / M Date (uni ts (unknown) date) of Service: unknown) (unknown) (no (unknown) (unknown) Allergies (units (unkn own) date) unknown) (unknown) (no (unknown) (unknown) [place] [address] (unit s (unknown) date) unknown) (unknown) (no (unknown) (unknown) 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 It's not unknown) a good idea to use your bed to watch TV, (unknown) (no (unknown) (unknown) Attending Dr: Paradise (unit s (unknown) date) Layla SOTO unknown) (unknown) (no (unknown) (unknown) Attitude: (units (unkn own) date) cooperative unknown) (unknown) (no (unknown) (unknown) Auto CPAP set (units ( unknown) date) pressures: 5-15 CWP unknown) (unknown) (no (unknown) (unknown) Avoid alcohol after (unit s (unknown) date) 4 pm unknown) (unknown) (no (unknown) (unknown) Avoid medications (units (unknown) date) which may interfere unknown) with sleep (unknown) (no (unknown) (unknown) Avoid random napping (uni ts (unknown) date) during the day; it unknown) can disturb the normal pattern of sleep (unknown) (no (unknown) (unknown) Avoid stimulants (units (unknown) date) such as caffeine, unknown) nicotine, and alcohol too close to bedtime. (unknown) (no (unknown) (unknown) BMI 32.9 (units (unkno wn) date) unknown) (unknown) (no (unknown) (unknown) BP 134/99 H (units (un known) date) unknown) (unknown) (no (unknown) (unknown) Being a passenger in (uni ts (unknown) date) a motor vehicle for unknown) an hour or so: 1 = Slight (unknown) (no (unknown) (unknown) Blood Pressure (units (unknown) date) Location Lt brachial unknown) (unknown) (no (unknown) (unknown) CPAP (5-15 cwp) (units (unknown) date) unknown) (unknown) (no (unknown) (unknown) Caffeine Branch: no (unit s (unknown) date) and denies sleeping unknown) pills (unknown) (no (unknown) (unknown) Cardiac (units (unkno wn) date) unknown) (unknown) (no (unknown) (unknown) Chief Complaint: (units (unknown) date) Follow up CPAP unknown) therapy for LORI (unknown) (no (unknown) (unknown) Clinical Course (units (unknown) date) unknown) (unknown) (no (unknown) (unknown) Cognition: normal (units (unknown) date) cognition unknown) (unknown) (no (unknown) (unknown) Compliance visit (units (unknown) date) unknown) (unknown) (no (unknown) (unknown) Condition is Onset: (unit s (unknown) date) Chronic and ongoing unknown) condition (unknown) (no (unknown) (unknown) Conjunctivae: (units ( unknown) date) conjunctivae normal unknown) (unknown) (no (unknown) (unknown) Consider weaning (units (unknown) date) caffeine use, unknown) starting with no caffeine after 3pm (unknown) (no (unknown) (unknown) Const (units (unkno wn) date) unknown) (unknown) (no (unknown) (unknown) Currently using CPAP (uni ts (unknown) date) 5-15 cwp. Compliance unknown) data reviewed, implications of (unknown) (no (unknown) (unknown) Currently using CPAP (uni ts (unknown) date) 5-15 cwp. Using the unknown) device regularly. Reports no concerns (unknown) (no (unknown) (unknown) DME: [employer] (units (un known) date) unknown) (unknown) (no (unknown) (unknown) : 1980 (units (unknown) date) Acct:[id number] unknown) (unknown) (no (unknown) (unknown) Denies bloating on (units (unknown) date) CPAP unknown) (unknown) (no (unknown) (unknown) Denies chest pain (units (unknown) date) unknown) (unknown) (no (unknown) (unknown) Denies dyspnea at (units (unknown) date) night unknown) (unknown) (no (unknown) (unknown) Dept at (units (unkno wn) date) . unknown) (unknown) (no (unknown) (unknown) Details: (units (unkno wn) date) unknown) (unknown) (no (unknown) (unknown) Device data last 30 (unit s (unknown) date) days: unknown) (unknown) (no (unknown) (unknown) Device set up: (units (unknown) date) 07/14/2022 unknown) (unknown) (no (unknown) (unknown) Documented By: (units (unknown) date) Paradise Rich unknown) 09/10/22 0901 (unknown) (no (unknown) (unknown) Draft (units (unkno wn) date) unknown) (unknown) (no (unknown) (unknown) Drowsy driving (units (unknown) date) handout made unknown) available. (unknown) (no (unknown) (unknown) Ears: hearing (units ( unknown) date) grossly normal unknown) bilaterally (unknown) (no (unknown) (unknown) Effort + Inspection: (uni ts (unknown) date) normal respiratory unknown) effort, able to speak in complete (unknown) (no (unknown) (unknown) Ensure adequate (units (unknown) date) exposure to natural unknown) light. This is particularly important for (unknown) (no (unknown) (unknown) [place] Score: 10 (units (unknown) date) unknown) (unknown) (no (unknown) (unknown) [place] Sleepiness (units (unknown) date) Scale unknown) (unknown) (no (unknown) (unknown) Establish a regular (units (unknown) date) relaxing bedtime unknown) routine. Try to avoid emotionally upsetting (unknown) (no (unknown) (unknown) Exacerbating/Allevia (uni ts (unknown) date) ting Factors unknown) (unknown) (no (unknown) (unknown) Exam Narrative (units (unknown) date) unknown) (unknown) (no (unknown) (unknown) Exam Narrative: (units (unknown) date) unknown) (unknown) (no (unknown) (unknown) Exam (units (unkno wn) date) unknown) (unknown) (no (unknown) (unknown) Eyes (units (unkno wn) date) unknown) (unknown) (no (unknown) (unknown) Food can be (units (un known) date) disruptive right unknown) before sleep; stay away from large meals close to (unknown) (no (unknown) (unknown) GI (units (unkno wn) date) unknown) (unknown) (no (unknown) (unknown) General: (units (unkno wn) date) cooperative, unknown) comfortable and no acute distress (unknown) (no (unknown) (unknown) General: patient (units (unknown) date) alert, patient awake unknown) and patient oriented x3 (unknown) (no (unknown) (unknown) Get regular moderate (uni ts (unknown) date) exercise (30 minutes, unknown) 3x/week) (unknown) (no (unknown) (unknown) HENMT (units (unkno wn) date) unknown) (unknown) (no (unknown) (unknown) HPI Sleep Follow Up (unit s (unknown) date) unknown) (unknown) (no (unknown) (unknown) HPI (units (unkno wn) date) unknown) (unknown) (no (unknown) (unknown) HYDROCHLOROTHIAZIDE (unit s (unknown) date) PO 08/15/21 [History unknown) Confirmed 09/10/22] (unknown) (no (unknown) (unknown) Head: normal to (units (unknown) date) inspection unknown) (unknown) (no (unknown) (unknown) Height 6 ft (units (un known) date) unknown) (unknown) (no (unknown) (unknown) Intake (units (unkno wn) date) unknown) (unknown) (no (unknown) (unknown) Light exposure (units (unknown) date) during the day helps unknown) maintain a healthy sleep-wake cycle. In (unknown) (no (unknown) (unknown) Loc: SLEEP (units (unk nown) date) unknown) (unknown) (no (unknown) (unknown) Lying down in the (units (unknown) date) afternoon: 2 = unknown) Moderate (unknown) (no (unknown) (unknown) Make sure that the (units (unknown) date) sleep environment is unknown) pleasant and relaxing. The bed should be (unknown) (no (unknown) (unknown) Mask leak. (units (unk nown) date) unknown) (unknown) (no (unknown) (unknown) Medical History (units (unknown) date) (Updated 09/10/22 @ unknown) 09:05 by BRITTANY Maynard) (unknown) (no (unknown) (unknown) Medications (units (un known) date) unknown) (unknown) (no (unknown) (unknown) Moderate LORI. (units ( unknown) date) Patient reports a unknown) history of snoring and a disturbed sleep (unknown) (no (unknown) (unknown) Moderate chance of (units (unknown) date) dozing or sleeping, 3 unknown) = High chance of dozing or sleeping (unknown) (no (unknown) (unknown) Mood: congruent mood (uni ts (unknown) date) unknown) (unknown) (no (unknown) (unknown) NPSG consistent with (uni ts (unknown) date) moderate LORI (AHI unknown) 15.2) with desaturation events down to (unknown) (no (unknown) (unknown) Neck (units (unkno wn) date) unknown) (unknown) (no (unknown) (unknown) Neck: normal visual (unit s (unknown) date) inspection unknown) (unknown) (no (unknown) (unknown) Neuro (units (unkno wn) date) unknown) (unknown) (no (unknown) (unknown) Obstructive sleep (units (unknown) date) apnea of adult unknown) (unknown) (no (unknown) (unknown) PFSH (units (unkno wn) date) unknown) (unknown) (no (unknown) (unknown) Pain scale (1-10): 1 (uni ts (unknown) date) unknown) (unknown) (no (unknown) (unknown) Pain (units (unkno wn) date) unknown) (unknown) (no (unknown) (unknown) Patient has a (units ( unknown) date) history of chronic unknown) snoring. Positional therapy and the use of (unknown) (no (unknown) (unknown) Patient instructed (units (unknown) date) to use scheduled naps unknown) as needed for drowsiness safety (unknown) (no (unknown) (unknown) Patient prescribed (units (unknown) date) continued CPAP unknown) therapy at 5-15 cwp. No changes made today. (unknown) (no (unknown) (unknown) Patient reports a (units (unknown) date) history of snoring unknown) and a disturbed sleep pattern. There is (unknown) (no (unknown) (unknown) Patient reports (units (unknown) date) alcohol Sleep Alcohol unknown) Branch: never, reports caffeine Sleep (unknown) (no (unknown) (unknown) Patient reports (units (unknown) date) difficulty falling unknown) asleep is denied, difficulty staying asleep (unknown) (no (unknown) (unknown) Patient reports (units (unknown) date) symptoms of chronic unknown) insomnia for more than 3 months as evidenced (unknown) (no (unknown) (unknown) Patient scheduled (units (unknown) date) for an attended unknown) overnight diagnostic sleep study (unknown) (no (unknown) (unknown) Patient was (units (un known) date) encouraged to unknown) maintain PAP usage at a minimum of 4 hours a night, (unknown) (no (unknown) (unknown) Patient was (units (un known) date) instructed to avoid unknown) driving or operating heavy machinery when (unknown) (no (unknown) (unknown) Patient: (units (unkno wn) date) Jerzy Reeder MR#: unknown) M000 (unknown) (no (unknown) (unknown) Pertinent (units (unkn own) date) Positives/Negatives unknown) (unknown) (no (unknown) (unknown) Plan (units (unkno wn) date) unknown) (unknown) (no (unknown) (unknown) Position Sitting (units (unknown) date) unknown) (unknown) (no (unknown) (unknown) Positional therapy (units (unknown) date) as needed. unknown) (unknown) (no (unknown) (unknown) Prescription written (uni ts (unknown) date) for renewal of PAP unknown) supplies; (unknown) (no (unknown) (unknown) Properly timed (units (unknown) date) exercise can promote unknown) good sleep. Vigorous exercise should be (unknown) (no (unknown) (unknown) Psych (units (unkno wn) date) unknown) (unknown) (no (unknown) (unknown) Psychological (units ( unknown) date) unknown) (unknown) (no (unknown) (unknown) Pulse 75 (units (unkno wn) date) unknown) (unknown) (no (unknown) (unknown) Pulse Source Monitor (uni ts (unknown) date) unknown) (unknown) (no (unknown) (unknown) Questionnaires (units (unknown) date) unknown) (unknown) (no (unknown) (unknown) ROS Sleep (units (unkn own) date) unknown) (unknown) (no (unknown) (unknown) Reason For Visit (units (unknown) date) unknown) (unknown) (no (unknown) (unknown) Reports daytime (units (unknown) date) sleepiness (improved) unknown) and Reports difficulty sleeping (improved) (unknown) (no (unknown) (unknown) Reports napping on (units (unknown) date) occassion unknown) (unknown) (no (unknown) (unknown) Reports seasonal (units (unknown) date) allergies unknown) (unknown) (no (unknown) (unknown) Resp (units (unkno wn) date) unknown) (unknown) (no (unknown) (unknown) Respiration 14 (units (unknown) date) unknown) (unknown) (no (unknown) (unknown) Respiratory (units (un known) date) unknown) (unknown) (no (unknown) (unknown) Return visit in 6 (units (unknown) date) months to assess unknown) continued response to PAP therapy Patient was (unknown) (no (unknown) (unknown) SWELLING (units (unkno wn) date) unknown) (unknown) (no (unknown) (unknown) Sclera: sclerae (units (unknown) date) normal unknown) (unknown) (no (unknown) (unknown) Signed By: (units (unk nown) date) unknown) (unknown) (no (unknown) (unknown) Sitting and Reading: (uni ts (unknown) date) 2 = Moderate unknown) (unknown) (no (unknown) (unknown) Sitting and talking (unit s (unknown) date) to someone: 0 = Never unknown) (None) (unknown) (no (unknown) (unknown) Sitting inactive in (unit s (unknown) date) a public place: 1 = unknown) Slight (unknown) (no (unknown) (unknown) Sitting quietly (units (unknown) date) after lunch (no unknown) alcohol): 2 = Moderate (unknown) (no (unknown) (unknown) Sleep Schedule (units (unknown) date) Branch: consistent, unknown) daytime somnolence rare, snoring not (unknown) (no (unknown) (unknown) Sleep Visit (units (un known) date) unknown) (unknown) (no (unknown) (unknown) [facility] unknown) (unknown) (no (unknown) (unknown) Smoking Status: (units (unknown) date) Never smoker unknown) (unknown) (no (unknown) (unknown) Speech and Movement: (uni ts (unknown) date) speech and movement unknown) normal (unknown) (no (unknown) (unknown) Speech: speech (units (unknown) date) normal unknown) (unknown) (no (unknown) (unknown) Status: Acute (units ( unknown) date) unknown) (unknown) (no (unknown) (unknown) Stopped for a few (units (unknown) date) minutes in traffic: 0 unknown) = Never (None) (unknown) (no (unknown) (unknown) Sulfa (Sulfonamide (units (unknown) date) Antibiotics) Allergy unknown) (Verified 09/10/22 11:20) (unknown) (no (unknown) (unknown) Symptoms (units (unkno wn) date) unknown) (unknown) (no (unknown) (unknown) Temp 97.7 F (units (un known) date) unknown) (unknown) (no (unknown) (unknown) Temp Source Temporal (uni ts (unknown) date) Artery Scan unknown) (unknown) (no (unknown) (unknown) The patient reports (unit s (unknown) date) symptoms of excessive unknown) daytime sleepiness as evidenced by (unknown) (no (unknown) (unknown) This note may have (units (unknown) date) been all or partially unknown) generated using voice recognition (unknown) (no (unknown) (unknown) This will be (units (u nknown) date) reassessed once the unknown) sleep study has been completed. (unknown) (no (unknown) (unknown) Tobacco + Substance (unit s (unknown) date) Use unknown) (unknown) (no (unknown) (unknown) Tobacco Status (units (unknown) date) unknown) (unknown) (no (unknown) (unknown) Treatment Effects: (units (unknown) date) Pap Treatment unknown) Response/Side Effects: adherent to current PAP (unknown) (no (unknown) (unknown) Treatment (units (unkn own) date) Response/Side Affects unknown) (unknown) (no (unknown) (unknown) Usage: 87% with 83% (unit s (unknown) date) greater than 4 hours. unknown) Leak 28.4. AHIflow: 1.8 (unknown) (no (unknown) (unknown) Use of nasal (units (u nknown) date) steroids and unknown) montelukast was also reviewed. 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) (unknown) (no (unknown) (unknown) Visit type (FU): (units (unknown) date) follow up of LORI unknown) therapy Follow up evaluation of LORI therapy: (unknown) (no (unknown) (unknown) Vitals (units (unkno wn) date) unknown) (unknown) (no (unknown) (unknown) Watching TV: 2 = (units (unknown) date) Moderate unknown) (unknown) (no (unknown) (unknown) Weight 243 lb (units ( unknown) date) unknown) (unknown) (no (unknown) (unknown) While alcohol is (units (unknown) date) well known to speed unknown) the onset of sleep, it disrupts sleep in (unknown) (no (unknown) (unknown) [History Confirmed (units (unknown) date) 09/10/22] unknown) (unknown) (no (unknown) (unknown) a little, normal (units (unknown) date) bedtime ([id number]), unknown) normal wake time (0800), sleep schedule (unknown) (no (unknown) (unknown) activities, you may (unit s (unknown) date) have more problems unknown) getting back to sleep during the night. (unknown) (no (unknown) (unknown) addition, avoiding (units (unknown) date) nighttime bright unknown) light exposure, which can occur with many (unknown) (no (unknown) (unknown) also a history of (units (unknown) date) hypertension and unknown) depression with a Mallampati score of IV. (unknown) (no (unknown) (unknown) and wakefulness. (units (unknown) date) Scheduled napping may unknown) be considered if appropriate for the (unknown) (no (unknown) (unknown) appreciated, apnea (units (unknown) date) not witnessed, unknown) choking or gasping Choking or Gasping Branch: (unknown) (no (unknown) (unknown) bedtime. Also dietary (uni ts (unknown) date) changes can cause unknown) sleep problems, if someone is struggling (unknown) (no (unknown) (unknown) benefitting from (units (unknown) date) therapy and willing unknown) to continue with CPAP. (unknown) (no (unknown) (unknown) bring your problems (unit s (unknown) date) to bed. unknown) (unknown) (no (unknown) (unknown) burn symptoms at (units (unknown) date) night, reports unknown) nocturia (once per night), reports pain (back (unknown) (no (unknown) (unknown) but increased (units ( unknown) date) benefit from more unknown) usage was also explained. (unknown) (no (unknown) (unknown) by trouble staying (units (unknown) date) asleep and unknown) non-restorative sleep. This can be seen secondary (unknown) (no (unknown) (unknown) can be seen (units (un known) date) secondary to sleep unknown) apnea, insomnia, depression, medical conditions (unknown) (no (unknown) (unknown) clearly benefitting (unit s (unknown) date) from therapy and unknown) willing to continue with CPAP. (unknown) (no (unknown) (unknown) comfortable, the (units (unknown) date) room should be quiet, unknown) not too hot or cold, or too bright. (unknown) (no (unknown) (unknown) congestion at night, (uni ts (unknown) date) reports dry mouth unknown) (sometimes), denies sore throat in the (unknown) (no (unknown) (unknown) conversations and (units (unknown) date) activities before unknown) trying to go to sleep. Don't dwell on, or (unknown) (no (unknown) (unknown) daytime sleeping and (uni ts (unknown) date) an elevated [place] unknown) Sleepiness Scale score of 18/24. This (unknown) (no (unknown) (unknown) denied, epworth (units (unknown) date) sleep scale score unknown) (09/15) and bruxism Bruxism Branch: denied (unknown) (no (unknown) (unknown) dishes. And, (units (u nknown) date) remember, chocolate unknown) has caffeine. (unknown) (no (unknown) (unknown) done before bed to (units (unknown) date) help initiate a unknown) restful night's sleep. (unknown) (no (unknown) (unknown) down to 86%. CPAP (units (unknown) date) initiated. unknown) (unknown) (no (unknown) (unknown) drowsy. (units (unkno wn) date) unknown) (unknown) (no (unknown) (unknown) durng the day, (units (unknown) date) reports depression unknown) (managed) and reports anxiety (unknown) (no (unknown) (unknown) findings discussed. (unit s (unknown) date) Compliance is unknown) excellent with optimal AHI flow. He is (unknown) (no (unknown) (unknown) have occurred. If (units (unknown) date) there are any unknown) questions, please contact the Medical Records (unknown) (no (unknown) (unknown) instructed to return (uni ts (unknown) date) sooner if any unknown) questions or concerns arise. (unknown) (no (unknown) (unknown) intermittent, early (unit s (unknown) date) morning awakening unknown) denied, spending time in bed not sleeping (unknown) (no (unknown) (unknown) issues to worsen as (unit s (unknown) date) there is no further unknown) intervention for him. (unknown) (no (unknown) (unknown) lifitegrast 5 % eye (unit s (unknown) date) drops in a unknown) dropperette ([place]) drp EYE-BOTH 08/15/21 (unknown) (no (unknown) (unknown) listen to the radio, (uni ts (unknown) date) or read as if you unknown) associate falling asleep with these (unknown) (no (unknown) (unknown) may occur. (units (unk nown) date) Occasional wrong-word unknown) or 'sound-alike' substitutions may have (unknown) (no (unknown) (unknown) morning, denies (units (unknown) date) nocturnal cough, unknown) denies nocturnal palpitations, denies heart (unknown) (no (unknown) (unknown) nasal saline and (units (unknown) date) internal and external unknown) nasal dilator therapies were discussed. (unknown) (no (unknown) (unknown) occurred due to the (unit s (unknown) date) inherent limitations unknown) of voice recognition software. Please (unknown) (no (unknown) (unknown) older people who may (uni ts (unknown) date) not venture outside unknown) as frequently as children and adults. (unknown) (no (unknown) (unknown) on PAP well, sleep (units (unknown) date) quality well and unknown) daytime sleepiness Daytime Sleepiness Branch (unknown) (no (unknown) (unknown) on the sleep study. (unit s (unknown) date) unknown) (unknown) (no (unknown) (unknown) optimal sleep (units ( unknown) date) schedule. unknown) (unknown) (no (unknown) (unknown) or can be a primary (unit s (unknown) date) problem. Risks and unknown) symptoms of drowsiness were reviewed. (unknown) (no (unknown) (unknown) pain), denies (units ( unknown) date) dizziness in the unknown) morning, denies trouble consentrating/focusin g (unknown) (no (unknown) (unknown) pattern. NPSG (units ( unknown) date) consistent with unknown) moderate LORI (AHI 15.2) with desaturation events (unknown) (no (unknown) (unknown) personal electronic (unit s (unknown) date) devices, can also unknown) help maintain a healthy sleep-wake cycle. (unknown) (no (unknown) (unknown) problem. Sleep (units (unknown) date) hygiene and sleep unknown) schedules were discussed. This will be (unknown) (no (unknown) (unknown) read the note (units ( unknown) date) carefully and unknown) recognize, using context, where these substitutions (unknown) (no (unknown) (unknown) reassessed after the (uni ts (unknown) date) sleep study. unknown) (unknown) (no (unknown) (unknown) reports night (units ( unknown) date) sweats, reports unknown) morning headache (sometimes), denies nasal (unknown) (no (unknown) (unknown) resolution of (units ( unknown) date) snoring and decreased unknown) daytime sleepiness. He is clearly (unknown) (no (unknown) (unknown) sentences and no (units (unknown) date) audible wheezes unknown) (unknown) (no (unknown) (unknown) software. 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 (unit s (unknown) date) Mask blows air to his unknown) eyes and this wakes him up. Has been (unknown) (no (unknown) (unknown) taken in the morning (uni ts (unknown) date) or late afternoon. A unknown) relaxing exercise, like yoga, can be (unknown) (no (unknown) (unknown) the second half as (units (unknown) date) the body begins to unknown) metabolize the alcohol, causing arousal. (unknown) (no (unknown) (unknown) to sleep apnea, (units (unknown) date) depression, medical unknown) conditions or can be an independent (unknown) (no (unknown) (unknown) treatment improving (unit s (unknown) date) on treatment unknown) (unknown) (no (unknown) (unknown) wellbutrin PO DAILY (unit s (unknown) date) 09/10/22 [History] unknown) (unknown) (no (unknown) (unknown) with a sleep (units (u nknown) date) problem, it's not a unknown) good time to start experimenting with spicy (unknown) (no (unknown) (unknown) with the machine or (unit s (unknown) date) pressure. He is unknown) showing positive clinical improvement with (unknown) (no (unknown) (unknown) working with [employer] (unit s (unknown) date) and does not feel unknown) this is working. Does not want his eye Result panel 7 (unknown) (no (unknown) (unknown) (no value) (units (unk nown) date) unknown) (unknown) (no (unknown) (unknown) (1) Obstructive (units (unknown) date) sleep apnea of adult: unknown) (unknown) (no (unknown) (unknown) (2) Excessive (units ( unknown) date) daytime sleepiness: unknown) (unknown) (no (unknown) (unknown) (3) Insomnia: (units ( unknown) date) unknown) (unknown) (no (unknown) (unknown) (4) History of (units (unknown) date) snoring: unknown) (unknown) (no (unknown) (unknown) 0 = Would never doze (uni ts (unknown) date) or sleep, 1 = Slight unknown) chance of dozing or sleeping, 2 = (unknown) (no (unknown) (unknown) 09/10/22 (units (unkno wn) date) unknown) (unknown) (no (unknown) (unknown) 11:21 (units (unkno wn) date) unknown) (unknown) (no (unknown) (unknown) 2: better (units (unkn own) date) unknown) (unknown) (no (unknown) (unknown) [id number] (units (unkno wn) date) unknown) (unknown) (no (unknown) (unknown) 86%. CPAP initiated. (uni ts (unknown) date) unknown) (unknown) (no (unknown) (unknown) Add'l Complaint: (units (unknown) date) unknown) (unknown) (no (unknown) (unknown) Adhere to regular (units (unknown) date) mealtime schedule, unknown) avoid snacking (unknown) (no (unknown) (unknown) Affect: normal (units (unknown) date) affect unknown) (unknown) (no (unknown) (unknown) Age/Sex: 42 / M Date (uni ts (unknown) date) of Service: unknown) (unknown) (no (unknown) (unknown) Allergies (units (unkn own) date) unknown) (unknown) (no (unknown) (unknown) [place] [address] (unit s (unknown) date) unknown) (unknown) (no (unknown) (unknown) 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 It's not unknown) a good idea to use your bed to watch TV, (unknown) (no (unknown) (unknown) Attending Dr: [place] (unit s (unknown) date) Layla PERSONAL CARE SERVICE PROVIDER unknown) (unknown) (no (unknown) (unknown) Attitude: (units (unkn own) date) cooperative unknown) (unknown) (no (unknown) (unknown) Auto CPAP set (units ( unknown) date) pressures: 5-15 CWP unknown) (unknown) (no (unknown) (unknown) Avoid alcohol after (unit s (unknown) date) 4 pm unknown) (unknown) (no (unknown) (unknown) Avoid medications (units (unknown) date) which may interfere unknown) with sleep (unknown) (no (unknown) (unknown) Avoid random napping (uni ts (unknown) date) during the day; it unknown) can disturb the normal pattern of sleep (unknown) (no (unknown) (unknown) Avoid stimulants (units (unknown) date) such as caffeine, unknown) nicotine, and alcohol too close to bedtime. (unknown) (no (unknown) (unknown) BMI 32.9 (units (unkno wn) date) unknown) (unknown) (no (unknown) (unknown) BP 134/99 H (units (un known) date) unknown) (unknown) (no (unknown) (unknown) Being a passenger in (uni ts (unknown) date) a motor vehicle for unknown) an hour or so: 1 = Slight (unknown) (no (unknown) (unknown) Blood Pressure (units (unknown) date) Location Lt brachial unknown) (unknown) (no (unknown) (unknown) CPAP (5-15 cwp) (units (unknown) date) unknown) (unknown) (no (unknown) (unknown) Caffeine Branch: no (unit s (unknown) date) and denies sleeping unknown) pills (unknown) (no (unknown) (unknown) Cardiac (units (unkno wn) date) unknown) (unknown) (no (unknown) (unknown) Chief Complaint: (units (unknown) date) Follow up CPAP unknown) therapy for LORI (unknown) (no (unknown) (unknown) Clinical Course (units (unknown) date) unknown) (unknown) (no (unknown) (unknown) Cognition: normal (units (unknown) date) cognition unknown) (unknown) (no (unknown) (unknown) Compliance visit (units (unknown) date) unknown) (unknown) (no (unknown) (unknown) Condition is Onset: (unit s (unknown) date) Chronic and ongoing unknown) condition (unknown) (no (unknown) (unknown) Conjunctivae: (units ( unknown) date) conjunctivae normal unknown) (unknown) (no (unknown) (unknown) Consider weaning (units (unknown) date) caffeine use, unknown) starting with no caffeine after 3pm (unknown) (no (unknown) (unknown) Const (units (unkno wn) date) unknown) (unknown) (no (unknown) (unknown) Currently using CPAP (uni ts (unknown) date) 5-15 cwp. Compliance unknown) data reviewed, implications of (unknown) (no (unknown) (unknown) Currently using CPAP (uni ts (unknown) date) 5-15 cwp. Using the unknown) device regularly. Reports no concerns (unknown) (no (unknown) (unknown) DME: [employer] (units (un known) date) unknown) (unknown) (no (unknown) (unknown) : 1980 (units (unknown) date) Acct:[id number] unknown) (unknown) (no (unknown) (unknown) Denies bloating on (units (unknown) date) CPAP unknown) (unknown) (no (unknown) (unknown) Denies chest pain (units (unknown) date) unknown) (unknown) (no (unknown) (unknown) Denies dyspnea at (units (unknown) date) night unknown) (unknown) (no (unknown) (unknown) Dept at (units (unkno wn) date) . unknown) (unknown) (no (unknown) (unknown) Details: (units (unkno wn) date) unknown) (unknown) (no (unknown) (unknown) Device data last 30 (unit s (unknown) date) days: unknown) (unknown) (no (unknown) (unknown) Device set up: (units (unknown) date) 07/14/2022 unknown) (unknown) (no (unknown) (unknown) Documented By: (units (unknown) date) FerridayParadisePadmini SOTO unknown) 09/10/22 0901 (unknown) (no (unknown) (unknown) Draft (units (unkno wn) date) unknown) (unknown) (no (unknown) (unknown) Drowsy driving (units (unknown) date) handout made unknown) available. (unknown) (no (unknown) (unknown) Ears: hearing (units ( unknown) date) grossly normal unknown) bilaterally (unknown) (no (unknown) (unknown) Effort + Inspection: (uni ts (unknown) date) normal respiratory unknown) effort, able to speak in complete (unknown) (no (unknown) (unknown) Ensure adequate (units (unknown) date) exposure to natural unknown) light. This is particularly important for (unknown) (no (unknown) (unknown) [place] Score: 10 (units (unknown) date) unknown) (unknown) (no (unknown) (unknown) [place] Sleepiness (units (unknown) date) Scale unknown) (unknown) (no (unknown) (unknown) Establish a regular (units (unknown) date) relaxing bedtime unknown) routine. Try to avoid emotionally upsetting (unknown) (no (unknown) (unknown) Exacerbating/Allevia (uni ts (unknown) date) ting Factors unknown) (unknown) (no (unknown) (unknown) Exam Narrative (units (unknown) date) unknown) (unknown) (no (unknown) (unknown) Exam Narrative: (units (unknown) date) unknown) (unknown) (no (unknown) (unknown) Exam (units (unkno wn) date) unknown) (unknown) (no (unknown) (unknown) Eyes (units (unkno wn) date) unknown) (unknown) (no (unknown) (unknown) Food can be (units (un known) date) disruptive right unknown) before sleep; stay away from large meals close to (unknown) (no (unknown) (unknown) GI (units (unkno wn) date) unknown) (unknown) (no (unknown) (unknown) General: (units (unkno wn) date) cooperative, unknown) comfortable and no acute distress (unknown) (no (unknown) (unknown) General: patient (units (unknown) date) alert, patient awake unknown) and patient oriented x3 (unknown) (no (unknown) (unknown) Get regular moderate (uni ts (unknown) date) exercise (30 minutes, unknown) 3x/week) (unknown) (no (unknown) (unknown) HENMT (units (unkno wn) date) unknown) (unknown) (no (unknown) (unknown) HPI Sleep Follow Up (unit s (unknown) date) unknown) (unknown) (no (unknown) (unknown) HPI (units (unkno wn) date) unknown) (unknown) (no (unknown) (unknown) HYDROCHLOROTHIAZIDE (unit s (unknown) date) PO 08/15/21 [History unknown) Confirmed 09/10/22] (unknown) (no (unknown) (unknown) Has been working (units (unknown) date) with [employer] and does unknown) not feel it is working out. Does not want (unknown) (no (unknown) (unknown) Head: normal to (units (unknown) date) inspection unknown) (unknown) (no (unknown) (unknown) Height 182.88 cm (units (unknown) date) unknown) (unknown) (no (unknown) (unknown) Intake (units (unkno wn) date) unknown) (unknown) (no (unknown) (unknown) Light exposure (units (unknown) date) during the day helps unknown) maintain a healthy sleep-wake cycle. In (unknown) (no (unknown) (unknown) Loc: SLEEP (units (unk nown) date) unknown) (unknown) (no (unknown) (unknown) Lying down in the (units (unknown) date) afternoon: 2 = unknown) Moderate (unknown) (no (unknown) (unknown) Make sure that the (units (unknown) date) sleep environment is unknown) pleasant and relaxing. The bed should be (unknown) (no (unknown) (unknown) Medical History (units (unknown) date) (Updated 09/10/22 @ unknown) 09:05 by BRITTANY Maynard) (unknown) (no (unknown) (unknown) Medications (units (un known) date) unknown) (unknown) (no (unknown) (unknown) Moderate LORI. (units ( unknown) date) Patient reports a unknown) history of snoring and a disturbed sleep (unknown) (no (unknown) (unknown) Moderate chance of (units (unknown) date) dozing or sleeping, 3 unknown) = High chance of dozing or sleeping (unknown) (no (unknown) (unknown) Mood: congruent mood (uni ts (unknown) date) unknown) (unknown) (no (unknown) (unknown) NPSG consistent with (uni ts (unknown) date) moderate LORI (AHI unknown) 15.2) with desaturation events down to (unknown) (no (unknown) (unknown) Neck (units (unkno wn) date) unknown) (unknown) (no (unknown) (unknown) Neck: normal visual (unit s (unknown) date) inspection unknown) (unknown) (no (unknown) (unknown) Neuro (units (unkno wn) date) unknown) (unknown) (no (unknown) (unknown) Obstructive sleep (units (unknown) date) apnea of adult unknown) (unknown) (no (unknown) (unknown) PFSH (units (unkno wn) date) unknown) (unknown) (no (unknown) (unknown) Pain scale (1-10): 1 (uni ts (unknown) date) unknown) (unknown) (no (unknown) (unknown) Pain (units (unkno wn) date) unknown) (unknown) (no (unknown) (unknown) Patient has a (units ( unknown) date) history of chronic unknown) snoring. Positional therapy and the use of (unknown) (no (unknown) (unknown) Patient instructed (units (unknown) date) to use scheduled naps unknown) as needed for drowsiness safety (unknown) (no (unknown) (unknown) Patient prescribed (units (unknown) date) continued CPAP unknown) therapy at 5-15 cwp. No changes made today. (unknown) (no (unknown) (unknown) Patient reports a (units (unknown) date) history of snoring unknown) and a disturbed sleep pattern. There is (unknown) (no (unknown) (unknown) Patient reports (units (unknown) date) alcohol Sleep Alcohol unknown) Branch: never, reports caffeine Sleep (unknown) (no (unknown) (unknown) Patient reports (units (unknown) date) difficulty falling unknown) asleep is denied, difficulty staying asleep (unknown) (no (unknown) (unknown) Patient reports (units (unknown) date) symptoms of chronic unknown) insomnia for more than 3 months as evidenced (unknown) (no (unknown) (unknown) Patient scheduled (units (unknown) date) for an attended unknown) overnight diagnostic sleep study (unknown) (no (unknown) (unknown) Patient was (units (un known) date) encouraged to unknown) maintain PAP usage at a minimum of 4 hours a night, (unknown) (no (unknown) (unknown) Patient was (units (un known) date) instructed to avoid unknown) driving or operating heavy machinery when (unknown) (no (unknown) (unknown) Patient: (units (unkno wn) date) Jerzy Reeder MR#: unknown) M000 (unknown) (no (unknown) (unknown) Pertinent (units (unkn own) date) Positives/Negatives unknown) (unknown) (no (unknown) (unknown) Plan (units (unkno wn) date) unknown) (unknown) (no (unknown) (unknown) Position Sitting (units (unknown) date) unknown) (unknown) (no (unknown) (unknown) Positional therapy (units (unknown) date) as needed. unknown) (unknown) (no (unknown) (unknown) Prescription written (uni ts (unknown) date) for renewal of PAP unknown) supplies; (unknown) (no (unknown) (unknown) Properly timed (units (unknown) date) exercise can promote unknown) good sleep. Vigorous exercise should be (unknown) (no (unknown) (unknown) Psych (units (unkno wn) date) unknown) (unknown) (no (unknown) (unknown) Psychological (units ( unknown) date) unknown) (unknown) (no (unknown) (unknown) Pulse 75 (units (unkno wn) date) unknown) (unknown) (no (unknown) (unknown) Pulse Source Monitor (uni ts (unknown) date) unknown) (unknown) (no (unknown) (unknown) Questionnaires (units (unknown) date) unknown) (unknown) (no (unknown) (unknown) ROS Sleep (units (unkn own) date) unknown) (unknown) (no (unknown) (unknown) Reason For Visit (units (unknown) date) unknown) (unknown) (no (unknown) (unknown) Reports daytime (units (unknown) date) sleepiness (improved) unknown) and Reports difficulty sleeping (improved) (unknown) (no (unknown) (unknown) Reports napping on (units (unknown) date) occassion unknown) (unknown) (no (unknown) (unknown) Reports seasonal (units (unknown) date) allergies unknown) (unknown) (no (unknown) (unknown) Resp (units (unkno wn) date) unknown) (unknown) (no (unknown) (unknown) Respiration 14 (units (unknown) date) unknown) (unknown) (no (unknown) (unknown) Respiratory (units (un known) date) unknown) (unknown) (no (unknown) (unknown) Return visit in 6 (units (unknown) date) months to assess unknown) continued response to PAP therapy Patient was (unknown) (no (unknown) (unknown) SWELLING (units (unkno wn) date) unknown) (unknown) (no (unknown) (unknown) Sclera: sclerae (units (unknown) date) normal unknown) (unknown) (no (unknown) (unknown) Signed By: (units (unk nown) date) unknown) (unknown) (no (unknown) (unknown) Sitting and Reading: (uni ts (unknown) date) 2 = Moderate unknown) (unknown) (no (unknown) (unknown) Sitting and talking (unit s (unknown) date) to someone: 0 = Never unknown) (None) (unknown) (no (unknown) (unknown) Sitting inactive in (unit s (unknown) date) a public place: 1 = unknown) Slight (unknown) (no (unknown) (unknown) Sitting quietly (units (unknown) date) after lunch (no unknown) alcohol): 2 = Moderate (unknown) (no (unknown) (unknown) Sleep Schedule (units (unknown) date) Branch: consistent, unknown) daytime somnolence rare, snoring not (unknown) (no (unknown) (unknown) Sleep Visit (units (un known) date) unknown) (unknown) (no (unknown) (unknown) [facility] unknown) (unknown) (no (unknown) (unknown) Smoking Status: (units (unknown) date) Never smoker unknown) (unknown) (no (unknown) (unknown) Speech and Movement: (uni ts (unknown) date) speech and movement unknown) normal (unknown) (no (unknown) (unknown) Speech: speech (units (unknown) date) normal unknown) (unknown) (no (unknown) (unknown) Status: Acute (units ( unknown) date) unknown) (unknown) (no (unknown) (unknown) Stopped for a few (units (unknown) date) minutes in traffic: 0 unknown) = Never (None) (unknown) (no (unknown) (unknown) Sulfa (Sulfonamide (units (unknown) date) Antibiotics) Allergy unknown) (Verified 09/10/22 11:20) (unknown) (no (unknown) (unknown) Symptoms (units (unkno wn) date) unknown) (unknown) (no (unknown) (unknown) Temp 97.7 F (units (un known) date) unknown) (unknown) (no (unknown) (unknown) Temp Source Temporal (uni ts (unknown) date) Artery Scan unknown) (unknown) (no (unknown) (unknown) The patient reports (unit s (unknown) date) symptoms of excessive unknown) daytime sleepiness as evidenced by (unknown) (no (unknown) (unknown) This note may have (units (unknown) date) been all or partially unknown) generated using voice recognition (unknown) (no (unknown) (unknown) This will be (units (u nknown) date) reassessed once the unknown) sleep study has been completed. (unknown) (no (unknown) (unknown) Tobacco + Substance (unit s (unknown) date) Use unknown) (unknown) (no (unknown) (unknown) Tobacco Status (units (unknown) date) unknown) (unknown) (no (unknown) (unknown) Treatment Effects: (units (unknown) date) Pap Treatment unknown) Response/Side Effects: adherent to current PAP (unknown) (no (unknown) (unknown) Treatment (units (unkn own) date) Response/Side Affects unknown) (unknown) (no (unknown) (unknown) Usage: 87% with 83% (unit s (unknown) date) greater than 4 hours. unknown) Leak 28.4. AHIflow: 1.8 (unknown) (no (unknown) (unknown) Use of nasal (units (u nknown) date) steroids and unknown) montelukast was also reviewed. 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) (unknown) (no (unknown) (unknown) Visit type (FU): (units (unknown) date) follow up of LORI unknown) therapy Follow up evaluation of LORI therapy: (unknown) (no (unknown) (unknown) Vitals (units (unkno wn) date) unknown) (unknown) (no (unknown) (unknown) Watching TV: 2 = (units (unknown) date) Moderate unknown) (unknown) (no (unknown) (unknown) Weight 110.223 kg (units (unknown) date) unknown) (unknown) (no (unknown) (unknown) While alcohol is (units (unknown) date) well known to speed unknown) the onset of sleep, it disrupts sleep in (unknown) (no (unknown) (unknown) [History Confirmed (units (unknown) date) 09/10/22] unknown) (unknown) (no (unknown) (unknown) a little, normal (units (unknown) date) bedtime ([id number]), unknown) normal wake time (0800), sleep schedule (unknown) (no (unknown) (unknown) activities, you may (unit s (unknown) date) have more problems unknown) getting back to sleep during the night. (unknown) (no (unknown) (unknown) addition, avoiding (units (unknown) date) nighttime bright unknown) light exposure, which can occur with many (unknown) (no (unknown) (unknown) also a history of (units (unknown) date) hypertension and unknown) depression with a Mallampati score of IV. (unknown) (no (unknown) (unknown) and wakefulness. (units (unknown) date) Scheduled napping may unknown) be considered if appropriate for the (unknown) (no (unknown) (unknown) appreciated, apnea (units (unknown) date) not witnessed, unknown) choking or gasping Choking or Gasping Branch: (unknown) (no (unknown) (unknown) bedtime. Also dietary (uni ts (unknown) date) changes can cause unknown) sleep problems, if someone is struggling (unknown) (no (unknown) (unknown) benefitting from (units (unknown) date) therapy and willing unknown) to continue with CPAP. (unknown) (no (unknown) (unknown) bring your problems (unit s (unknown) date) to bed. unknown) (unknown) (no (unknown) (unknown) burn symptoms at (units (unknown) date) night, reports unknown) nocturia (once per night), reports pain (back (unknown) (no (unknown) (unknown) but increased (units ( unknown) date) benefit from more unknown) usage was also explained. (unknown) (no (unknown) (unknown) by trouble staying (units (unknown) date) asleep and unknown) non-restorative sleep. This can be seen secondary (unknown) (no (unknown) (unknown) can be seen (units (un known) date) secondary to sleep unknown) apnea, insomnia, depression, medical conditions (unknown) (no (unknown) (unknown) clearly benefitting (unit s (unknown) date) from therapy and unknown) willing to continue with CPAP. (unknown) (no (unknown) (unknown) comfortable, the (units (unknown) date) room should be quiet, unknown) not too hot or cold, or too bright. (unknown) (no (unknown) (unknown) congestion at night, (uni ts (unknown) date) reports dry mouth unknown) (sometimes), denies sore throat in the (unknown) (no (unknown) (unknown) conversations and (units (unknown) date) activities before unknown) trying to go to sleep. Don't dwell on, or (unknown) (no (unknown) (unknown) daytime sleeping and (uni ts (unknown) date) an elevated [place] unknown) Sleepiness Scale score of 18/24. This (unknown) (no (unknown) (unknown) denied, epworth (units (unknown) date) sleep scale score unknown) (09/15) and bruxism Bruxism Branch: denied (unknown) (no (unknown) (unknown) diffuse the exhaust (unit s (unknown) date) a different way. He unknown) will call. (unknown) (no (unknown) (unknown) dishes. And, (units (u nknown) date) remember, chocolate unknown) has caffeine. (unknown) (no (unknown) (unknown) done before bed to (units (unknown) date) help initiate a unknown) restful night's sleep. (unknown) (no (unknown) (unknown) down to 86%. CPAP (units (unknown) date) initiated. unknown) (unknown) (no (unknown) (unknown) drowsy. (units (unkno wn) date) unknown) (unknown) (no (unknown) (unknown) durng the day, (units (unknown) date) reports depression unknown) (managed) and reports anxiety (unknown) (no (unknown) (unknown) findings discussed. (unit s (unknown) date) Compliance is unknown) excellent with optimal AHI flow. He is (unknown) (no (unknown) (unknown) for him. Would like (unit s (unknown) date) to know if there was unknown) a way to redirect the exhaust on the (unknown) (no (unknown) (unknown) have occurred. If (units (unknown) date) there are any unknown) questions, please contact the Medical Records (unknown) (no (unknown) (unknown) his eye issues to (units (unknown) date) worsen as there is no unknown) further ophthalmological intervention (unknown) (no (unknown) (unknown) instructed to return (uni ts (unknown) date) sooner if any unknown) questions or concerns arise. (unknown) (no (unknown) (unknown) intermittent, early (unit s (unknown) date) morning awakening unknown) denied, spending time in bed not sleeping (unknown) (no (unknown) (unknown) lifitegrast 5 % eye (unit s (unknown) date) drops in a unknown) dropperette (Xiidra) drp EYE-BOTH 08/15/21 (unknown) (no (unknown) (unknown) listen to the radio, (uni ts (unknown) date) or read as if you unknown) associate falling asleep with these (unknown) (no (unknown) (unknown) mask. He was (units (u nknown) date) encouraged to go back unknown) [place] [facility] [place] device that can (unknown) (no (unknown) (unknown) may occur. (units (unk nown) date) Occasional wrong-word unknown) or 'sound-alike' substitutions may have (unknown) (no (unknown) (unknown) morning, denies (units (unknown) date) nocturnal cough, unknown) denies nocturnal palpitations, denies heart (unknown) (no (unknown) (unknown) nasal saline and (units (unknown) date) internal and external unknown) nasal dilator therapies were discussed. (unknown) (no (unknown) (unknown) occurred due to the (unit s (unknown) date) inherent limitations unknown) of voice recognition software. Please (unknown) (no (unknown) (unknown) older people who may (uni ts (unknown) date) not venture outside unknown) as frequently as children and adults. (unknown) (no (unknown) (unknown) on PAP well, sleep (units (unknown) date) quality well and unknown) daytime sleepiness Daytime Sleepiness Branch (unknown) (no (unknown) (unknown) on the sleep study. (unit s (unknown) date) unknown) (unknown) (no (unknown) (unknown) optimal sleep (units ( unknown) date) schedule. unknown) (unknown) (no (unknown) (unknown) or can be a primary (unit s (unknown) date) problem. Risks and unknown) symptoms of drowsiness were reviewed. (unknown) (no (unknown) (unknown) pain), denies (units ( unknown) date) dizziness in the unknown) morning, denies trouble consentrating/focusin g (unknown) (no (unknown) (unknown) pattern. NPSG (units ( unknown) date) consistent with unknown) moderate LORI (AHI 15.2) with desaturation events (unknown) (no (unknown) (unknown) personal electronic (unit s (unknown) date) devices, can also unknown) help maintain a healthy sleep-wake cycle. (unknown) (no (unknown) (unknown) problem. Sleep (units (unknown) date) hygiene and sleep unknown) schedules were discussed. This will be (unknown) (no (unknown) (unknown) read the note (units ( unknown) date) carefully and unknown) recognize, using context, where these substitutions (unknown) (no (unknown) (unknown) reassessed after the (uni ts (unknown) date) sleep study. unknown) (unknown) (no (unknown) (unknown) reports night (units ( unknown) date) sweats, reports unknown) morning headache (sometimes), denies nasal (unknown) (no (unknown) (unknown) resolution of (units ( unknown) date) snoring and decreased unknown) daytime sleepiness. He is clearly (unknown) (no (unknown) (unknown) sentences and no (units (unknown) date) audible wheezes unknown) (unknown) (no (unknown) (unknown) software. 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 (unit s (unknown) date) Mask exhaust blows unknown) air to his eyes and this wakes him up. (unknown) (no (unknown) (unknown) taken in the morning (uni ts (unknown) date) or late afternoon. A unknown) relaxing exercise, like yoga, can be (unknown) (no (unknown) (unknown) the second half as (units (unknown) date) the body begins to unknown) metabolize the alcohol, causing arousal. (unknown) (no (unknown) (unknown) to sleep apnea, (units (unknown) date) depression, medical unknown) conditions or can be an independent (unknown) (no (unknown) (unknown) treatment improving (unit s (unknown) date) on treatment unknown) (unknown) (no (unknown) (unknown) wellbutrin PO DAILY (unit s (unknown) date) 09/10/22 [History] unknown) (unknown) (no (unknown) (unknown) with a sleep (units (u nknown) date) problem, it's not a unknown) good time to start experimenting with spicy (unknown) (no (unknown) (unknown) with the machine or (unit s (unknown) date) pressure. He is unknown) showing positive clinical improvement with Result panel 8 (unknown) (no (unknown) (unknown) (no value) (units (unk nown) date) unknown) (unknown) (no (unknown) (unknown) (1) Obstructive (units (unknown) date) sleep apnea of adult: unknown) (unknown) (no (unknown) (unknown) (2) Excessive (units ( unknown) date) daytime sleepiness: unknown) (unknown) (no (unknown) (unknown) (3) Insomnia: (units ( unknown) date) unknown) (unknown) (no (unknown) (unknown) (4) History of (units (unknown) date) snoring: unknown) (unknown) (no (unknown) (unknown) 0 = Would never doze (uni ts (unknown) date) or sleep, 1 = Slight unknown) chance of dozing or sleeping, 2 = (unknown) (no (unknown) (unknown) 09/10/22 (units (unkno wn) date) unknown) (unknown) (no (unknown) (unknown) 11:21 (units (unkno wn) date) unknown) (unknown) (no (unknown) (unknown) . This can be (units (unknown) date) seen secondary to unknown) sleep apnea, insomnia, depression, medical (unknown) (no (unknown) (unknown) 2: better (units (unkn own) date) unknown) (unknown) (no (unknown) (unknown) [id number] (units (unkno wn) date) unknown) (unknown) (no (unknown) (unknown) 86%. CPAP initiated. (uni ts (unknown) date) unknown) (unknown) (no (unknown) (unknown) Add'l Complaint: (units (unknown) date) unknown) (unknown) (no (unknown) (unknown) Adhere to regular (units (unknown) date) mealtime schedule, unknown) avoid snacking (unknown) (no (unknown) (unknown) Affect: normal (units (unknown) date) affect unknown) (unknown) (no (unknown) (unknown) Age/Sex: 42 / M Date (uni ts (unknown) date) of Service: unknown) (unknown) (no (unknown) (unknown) Allergies (units (unkn own) date) unknown) (unknown) (no (unknown) (unknown) [place] [address] (unit s (unknown) date) unknown) (unknown) (no (unknown) (unknown) 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 It's not unknown) a good idea to use your bed to watch TV, (unknown) (no (unknown) (unknown) Attending Dr: Paradise (unit s (unknown) date) Layla SOTO unknown) (unknown) (no (unknown) (unknown) Attitude: (units (unkn own) date) cooperative unknown) (unknown) (no (unknown) (unknown) Auto CPAP set (units ( unknown) date) pressures: 5-15 CWP unknown) (unknown) (no (unknown) (unknown) Avoid alcohol after (unit s (unknown) date) 4 pm unknown) (unknown) (no (unknown) (unknown) Avoid medications (units (unknown) date) which may interfere unknown) with sleep (unknown) (no (unknown) (unknown) Avoid random napping (uni ts (unknown) date) during the day; it unknown) can disturb the normal pattern of sleep (unknown) (no (unknown) (unknown) Avoid stimulants (units (unknown) date) such as caffeine, unknown) nicotine, and alcohol too close to bedtime. (unknown) (no (unknown) (unknown) BMI 32.9 (units (unkno wn) date) unknown) (unknown) (no (unknown) (unknown) BP 134/99 H (units (un known) date) unknown) (unknown) (no (unknown) (unknown) Being a passenger in (uni ts (unknown) date) a motor vehicle for unknown) an hour or so: 1 = Slight (unknown) (no (unknown) (unknown) Blood Pressure (units (unknown) date) Location Lt brachial unknown) (unknown) (no (unknown) (unknown) CPAP (5-15 cwp) (units (unknown) date) unknown) (unknown) (no (unknown) (unknown) Caffeine Branch: no (unit s (unknown) date) and denies sleeping unknown) pills (unknown) (no (unknown) (unknown) Cardiac (units (unkno wn) date) unknown) (unknown) (no (unknown) (unknown) Chief Complaint: (units (unknown) date) Follow up CPAP unknown) therapy for LORI (unknown) (no (unknown) (unknown) Clinical Course (units (unknown) date) unknown) (unknown) (no (unknown) (unknown) Cognition: normal (units (unknown) date) cognition unknown) (unknown) (no (unknown) (unknown) Compliance visit (units (unknown) date) unknown) (unknown) (no (unknown) (unknown) Condition is Onset: (unit s (unknown) date) Chronic and ongoing unknown) condition (unknown) (no (unknown) (unknown) Conjunctivae: (units ( unknown) date) conjunctivae normal unknown) (unknown) (no (unknown) (unknown) Consider weaning (units (unknown) date) caffeine use, unknown) starting with no caffeine after 3pm (unknown) (no (unknown) (unknown) Const (units (unkno wn) date) unknown) (unknown) (no (unknown) (unknown) Currently using CPAP (uni ts (unknown) date) 5-15 cwp. Compliance unknown) data reviewed, implications of (unknown) (no (unknown) (unknown) Currently using CPAP (uni ts (unknown) date) 5-15 cwp. Using the unknown) device regularly. Reports no concerns (unknown) (no (unknown) (unknown) DME: [employer] (units (un known) date) unknown) (unknown) (no (unknown) (unknown) : 1980 (units (unknown) date) Acct:[id number] unknown) (unknown) (no (unknown) (unknown) Denies bloating on (units (unknown) date) CPAP unknown) (unknown) (no (unknown) (unknown) Denies chest pain (units (unknown) date) unknown) (unknown) (no (unknown) (unknown) Denies dyspnea at (units (unknown) date) night unknown) (unknown) (no (unknown) (unknown) Dept at (units (unkno wn) date) . unknown) (unknown) (no (unknown) (unknown) Details: (units (unkno wn) date) unknown) (unknown) (no (unknown) (unknown) Device data last 30 (unit s (unknown) date) days: unknown) (unknown) (no (unknown) (unknown) Device set up: (units (unknown) date) 07/14/2022 unknown) (unknown) (no (unknown) (unknown) Documented By: (units (unknown) date) Paradise Rich unknown) 09/10/22 0901 (unknown) (no (unknown) (unknown) Draft (units (unkno wn) date) unknown) (unknown) (no (unknown) (unknown) Drowsy driving (units (unknown) date) handout made unknown) available. (unknown) (no (unknown) (unknown) Ears: hearing (units ( unknown) date) grossly normal unknown) bilaterally (unknown) (no (unknown) (unknown) Effort + Inspection: (uni ts (unknown) date) normal respiratory unknown) effort, able to speak in complete (unknown) (no (unknown) (unknown) Encouraged to call (units (unknown) date) DME for options. May unknown) need to try oral device. He does not (unknown) (no (unknown) (unknown) Ensure adequate (units (unknown) date) exposure to natural unknown) light. This is particularly important for (unknown) (no (unknown) (unknown) [place] Score: 10 (units (unknown) date) unknown) (unknown) (no (unknown) (unknown) [place] Sleepiness (units (unknown) date) Scale unknown) (unknown) (no (unknown) (unknown) Establish a regular (units (unknown) date) relaxing bedtime unknown) routine. Try to avoid emotionally upsetting (unknown) (no (unknown) (unknown) Exacerbating/Allevia (uni ts (unknown) date) ting Factors unknown) (unknown) (no (unknown) (unknown) Exam Narrative (units (unknown) date) unknown) (unknown) (no (unknown) (unknown) Exam Narrative: (units (unknown) date) unknown) (unknown) (no (unknown) (unknown) Exam (units (unkno wn) date) unknown) (unknown) (no (unknown) (unknown) Eyes (units (unkno wn) date) unknown) (unknown) (no (unknown) (unknown) Food can be (units (un known) date) disruptive right unknown) before sleep; stay away from large meals close to (unknown) (no (unknown) (unknown) GI (units (unkno wn) date) unknown) (unknown) (no (unknown) (unknown) General: (units (unkno wn) date) cooperative, unknown) comfortable and no acute distress (unknown) (no (unknown) (unknown) General: patient (units (unknown) date) alert, patient awake unknown) and patient oriented x3 (unknown) (no (unknown) (unknown) Get regular moderate (uni ts (unknown) date) exercise (30 minutes, unknown) 3x/week) (unknown) (no (unknown) (unknown) HENMT (units (unkno wn) date) unknown) (unknown) (no (unknown) (unknown) HPI Sleep Follow Up (unit s (unknown) date) unknown) (unknown) (no (unknown) (unknown) HPI (units (unkno wn) date) unknown) (unknown) (no (unknown) (unknown) HYDROCHLOROTHIAZIDE (unit s (unknown) date) PO 08/15/21 [History unknown) Confirmed 09/10/22] (unknown) (no (unknown) (unknown) Has been working (units (unknown) date) with [employer] and does unknown) not feel it is working out. Does not want (unknown) (no (unknown) (unknown) He does not wish to (unit s (unknown) date) do this yet. unknown) (unknown) (no (unknown) (unknown) Head: normal to (units (unknown) date) inspection unknown) (unknown) (no (unknown) (unknown) Height 182.88 cm (units (unknown) date) unknown) (unknown) (no (unknown) (unknown) Intake (units (unkno wn) date) unknown) (unknown) (no (unknown) (unknown) Light exposure (units (unknown) date) during the day helps unknown) maintain a healthy sleep-wake cycle. In (unknown) (no (unknown) (unknown) Loc: SLEEP (units (unk nown) date) unknown) (unknown) (no (unknown) (unknown) Lying down in the (units (unknown) date) afternoon: 2 = unknown) Moderate (unknown) (no (unknown) (unknown) Make sure that the (units (unknown) date) sleep environment is unknown) pleasant and relaxing. The bed should be (unknown) (no (unknown) (unknown) Medical History (units (unknown) date) (Updated 09/10/22 @ unknown) 09:05 by BRITTANY Maynard) (unknown) (no (unknown) (unknown) Medications (units (un known) date) unknown) (unknown) (no (unknown) (unknown) Moderate LORI. (units ( unknown) date) Patient reports a unknown) history of snoring and a disturbed sleep (unknown) (no (unknown) (unknown) Moderate chance of (units (unknown) date) dozing or sleeping, 3 unknown) = High chance of dozing or sleeping (unknown) (no (unknown) (unknown) Mood: congruent mood (uni ts (unknown) date) unknown) (unknown) (no (unknown) (unknown) NPSG consistent with (uni ts (unknown) date) moderate LORI (AHI unknown) 15.2) with desaturation events down to (unknown) (no (unknown) (unknown) Neck (units (unkno wn) date) unknown) (unknown) (no (unknown) (unknown) Neck: normal visual (unit s (unknown) date) inspection unknown) (unknown) (no (unknown) (unknown) Neuro (units (unkno wn) date) unknown) (unknown) (no (unknown) (unknown) Obstructive sleep (units (unknown) date) apnea of adult unknown) (unknown) (no (unknown) (unknown) PFSH (units (unkno wn) date) unknown) (unknown) (no (unknown) (unknown) Pain scale (1-10): 1 (uni ts (unknown) date) unknown) (unknown) (no (unknown) (unknown) Pain (units (unkno wn) date) unknown) (unknown) (no (unknown) (unknown) Patient has a (units ( unknown) date) history of chronic unknown) snoring. Positional therapy and the use of (unknown) (no (unknown) (unknown) Patient instructed (units (unknown) date) to use scheduled naps unknown) as needed for drowsiness safety (unknown) (no (unknown) (unknown) Patient prescribed (units (unknown) date) continued CPAP unknown) therapy at 5-15 cwp. No changes made today. (unknown) (no (unknown) (unknown) Patient reports a (units (unknown) date) history of snoring unknown) and a disturbed sleep pattern. There is (unknown) (no (unknown) (unknown) Patient reports (units (unknown) date) alcohol Sleep Alcohol unknown) Branch: never, reports caffeine Sleep (unknown) (no (unknown) (unknown) Patient reports (units (unknown) date) difficulty falling unknown) asleep is denied, difficulty staying asleep (unknown) (no (unknown) (unknown) Patient reports (units (unknown) date) symptoms of chronic unknown) insomnia for more than 3 months as evidenced (unknown) (no (unknown) (unknown) Patient scheduled (units (unknown) date) for an attended unknown) overnight diagnostic sleep study (unknown) (no (unknown) (unknown) Patient was (units (un known) date) encouraged to unknown) maintain PAP usage at a minimum of 4 hours a night, (unknown) (no (unknown) (unknown) Patient was (units (un known) date) instructed to avoid unknown) driving or operating heavy machinery when (unknown) (no (unknown) (unknown) Patient: (units (unkno wn) date) Jerzy Reeder MR#: unknown) M000 (unknown) (no (unknown) (unknown) Pertinent (units (unkn own) date) Positives/Negatives unknown) (unknown) (no (unknown) (unknown) Plan (units (unkno wn) date) unknown) (unknown) (no (unknown) (unknown) [place] [facility] [place] ([place]) date[place] mask options. unknown) (unknown) (no (unknown) (unknown) Position Sitting (units (unknown) date) unknown) (unknown) (no (unknown) (unknown) Positional therapy (units (unknown) date) as needed. unknown) (unknown) (no (unknown) (unknown) Prescription written (uni ts (unknown) date) for renewal of PAP unknown) supplies; (unknown) (no (unknown) (unknown) Properly timed (units (unknown) date) exercise can promote unknown) good sleep. Vigorous exercise should be (unknown) (no (unknown) (unknown) Psych (units (unkno wn) date) unknown) (unknown) (no (unknown) (unknown) Psychological (units ( unknown) date) unknown) (unknown) (no (unknown) (unknown) Pulse 75 (units (unkno wn) date) unknown) (unknown) (no (unknown) (unknown) Pulse Source Monitor (uni ts (unknown) date) unknown) (unknown) (no (unknown) (unknown) Questionnaires (units (unknown) date) unknown) (unknown) (no (unknown) (unknown) ROS Sleep (units (unkn own) date) unknown) (unknown) (no (unknown) (unknown) Reason For Visit (units (unknown) date) unknown) (unknown) (no (unknown) (unknown) Reports daytime (units (unknown) date) sleepiness (improved) unknown) and Reports difficulty sleeping (improved) (unknown) (no (unknown) (unknown) Reports napping on (units (unknown) date) occassion unknown) (unknown) (no (unknown) (unknown) Reports seasonal (units (unknown) date) allergies unknown) (unknown) (no (unknown) (unknown) Resp (units (unkno wn) date) unknown) (unknown) (no (unknown) (unknown) Respiration 14 (units (unknown) date) unknown) (unknown) (no (unknown) (unknown) Respiratory (units (un known) date) unknown) (unknown) (no (unknown) (unknown) Return visit in 6 (units (unknown) date) months to assess unknown) continued response to PAP therapy Patient was (unknown) (no (unknown) (unknown) SWELLING (units (unkno wn) date) unknown) (unknown) (no (unknown) (unknown) Sclera: sclerae (units (unknown) date) normal unknown) (unknown) (no (unknown) (unknown) Signed By: (units (unk nown) date) unknown) (unknown) (no (unknown) (unknown) Sitting and Reading: (uni ts (unknown) date) 2 = Moderate unknown) (unknown) (no (unknown) (unknown) Sitting and talking (unit s (unknown) date) to someone: 0 = Never unknown) (None) (unknown) (no (unknown) (unknown) Sitting inactive in (unit s (unknown) date) a public place: 1 = unknown) Slight (unknown) (no (unknown) (unknown) Sitting quietly (units (unknown) date) after lunch (no unknown) alcohol): 2 = Moderate (unknown) (no (unknown) (unknown) Sleep Schedule (units (unknown) date) Branch: consistent, unknown) daytime somnolence rare, snoring not (unknown) (no (unknown) (unknown) Sleep Visit (units (un known) date) unknown) (unknown) (no (unknown) (unknown) [facility]) (unknown) (no (unknown) (unknown) Smoking Status: (units (unknown) date) Never smoker unknown) (unknown) (no (unknown) (unknown) Speech and Movement: (uni ts (unknown) date) speech and movement unknown) normal (unknown) (no (unknown) (unknown) Speech: speech (units (unknown) date) normal unknown) (unknown) (no (unknown) (unknown) Status: Acute (units ( unknown) date) unknown) (unknown) (no (unknown) (unknown) Stopped for a few (units (unknown) date) minutes in traffic: 0 unknown) = Never (None) (unknown) (no (unknown) (unknown) Sulfa (Sulfonamide (units (unknown) date) Antibiotics) Allergy unknown) (Verified 09/10/22 11:20) (unknown) (no (unknown) (unknown) Symptoms (units (unkno wn) date) unknown) (unknown) (no (unknown) (unknown) Temp 97.7 F (units (un known) date) unknown) (unknown) (no (unknown) (unknown) Temp Source Temporal (uni ts (unknown) date) Artery Scan unknown) (unknown) (no (unknown) (unknown) The patient reports (unit s (unknown) date) symptoms of excessive unknown) daytime sleepiness as evidenced by (unknown) (no (unknown) (unknown) This note may have (units (unknown) date) been all or partially unknown) generated using voice recognition (unknown) (no (unknown) (unknown) Tobacco + Substance (unit s (unknown) date) Use unknown) (unknown) (no (unknown) (unknown) Tobacco Status (units (unknown) date) unknown) (unknown) (no (unknown) (unknown) Treatment Effects: (units (unknown) date) Pap Treatment unknown) Response/Side Effects: adherent to current PAP (unknown) (no (unknown) (unknown) Treatment (units (unkn own) date) Response/Side Affects unknown) (unknown) (no (unknown) (unknown) Usage: 87% with 83% (unit s (unknown) date) greater than 4 hours. unknown) Leak 28.4. AHIflow: 1.8 (unknown) (no (unknown) (unknown) Use of nasal (units (u nknown) date) steroids and unknown) montelukast was also reviewed. 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) (unknown) (no (unknown) (unknown) Visit type (FU): (units (unknown) date) follow up of LORI unknown) therapy Follow up evaluation of LORI therapy: (unknown) (no (unknown) (unknown) Vitals (units (unkno wn) date) unknown) (unknown) (no (unknown) (unknown) Watching TV: 2 = (units (unknown) date) Moderate unknown) (unknown) (no (unknown) (unknown) Weight 110.223 kg (units (unknown) date) unknown) (unknown) (no (unknown) (unknown) While alcohol is (units (unknown) date) well known to speed unknown) the onset of sleep, it disrupts sleep in (unknown) (no (unknown) (unknown) [History Confirmed (units (unknown) date) 09/10/22] unknown) (unknown) (no (unknown) (unknown) a little, normal (units (unknown) date) bedtime (4611-3718), unknown) normal wake time (0800), sleep schedule (unknown) (no (unknown) (unknown) activities, you may (unit s (unknown) date) have more problems unknown) getting back to sleep during the night. (unknown) (no (unknown) (unknown) addition, avoiding (units (unknown) date) nighttime bright unknown) light exposure, which can occur with many (unknown) (no (unknown) (unknown) also a history of (units (unknown) date) hypertension and unknown) depression with a Mallampati score of IV. (unknown) (no (unknown) (unknown) and wakefulness. (units (unknown) date) Scheduled napping may unknown) be considered if appropriate for the (unknown) (no (unknown) (unknown) appreciated, apnea (units (unknown) date) not witnessed, unknown) choking or gasping Choking or Gasping Branch: (unknown) (no (unknown) (unknown) bedtime. Also dietary (uni ts (unknown) date) changes can cause unknown) sleep problems, if someone is struggling (unknown) (no (unknown) (unknown) benefitting from (units (unknown) date) therapy and willing unknown) to continue with CPAP. (unknown) (no (unknown) (unknown) bring your problems (unit s (unknown) date) to bed. unknown) (unknown) (no (unknown) (unknown) burn symptoms at (units (unknown) date) night, reports unknown) nocturia (once per night), reports pain (back (unknown) (no (unknown) (unknown) but increased (units ( unknown) date) benefit from more unknown) usage was also explained. (unknown) (no (unknown) (unknown) by trouble staying (units (unknown) date) asleep and unknown) non-restorative sleep. This can be seen secondary (unknown) (no (unknown) (unknown) clearly benefitting (unit s (unknown) date) from therapy and unknown) willing to continue with CPAP. (unknown) (no (unknown) (unknown) comfortable, the (units (unknown) date) room should be quiet, unknown) not too hot or cold, or too bright. (unknown) (no (unknown) (unknown) conditions or can be (uni ts (unknown) date) a primary problem. unknown) Risks and symptoms of drowsiness were (unknown) (no (unknown) (unknown) congestion at night, (uni ts (unknown) date) reports dry mouth unknown) (sometimes), denies sore throat in the (unknown) (no (unknown) (unknown) conversations and (units (unknown) date) activities before unknown) trying to go to sleep. Don't dwell on, or (unknown) (no (unknown) (unknown) daytime sleeping and (uni ts (unknown) date) an initially elevated unknown) [place] Sleepiness Scale score of (unknown) (no (unknown) (unknown) denied, epworth (units (unknown) date) sleep scale score unknown) (09/15) and bruxism Bruxism Branch: denied (unknown) (no (unknown) (unknown) diffuse the exhaust (unit s (unknown) date) a different way. He unknown) will call. May need to try oral device. (unknown) (no (unknown) (unknown) dishes. And, (units (u nknown) date) remember, chocolate unknown) has caffeine. (unknown) (no (unknown) (unknown) done before bed to (units (unknown) date) help initiate a unknown) restful night's sleep. (unknown) (no (unknown) (unknown) down to 86%. CPAP (units (unknown) date) initiated. unknown) (unknown) (no (unknown) (unknown) drowsy. (units (unkno wn) date) unknown) (unknown) (no (unknown) (unknown) durng the day, (units (unknown) date) reports depression unknown) (managed) and reports anxiety (unknown) (no (unknown) (unknown) findings discussed. (unit s (unknown) date) Compliance is unknown) excellent with optimal AHI flow. He is (unknown) (no (unknown) (unknown) for him. Would like (unit s (unknown) date) to know if there was unknown) a way to redirect the exhaust on the (unknown) (no (unknown) (unknown) have occurred. If (units (unknown) date) there are any unknown) questions, please contact the Medical Records (unknown) (no (unknown) (unknown) his eye issues to (units (unknown) date) worsen as there is no unknown) further ophthalmological intervention (unknown) (no (unknown) (unknown) instructed to return (uni ts (unknown) date) sooner if any unknown) questions or concerns arise. (unknown) (no (unknown) (unknown) intermittent, early (unit s (unknown) date) morning awakening unknown) denied, spending time in bed not sleeping (unknown) (no (unknown) (unknown) lifitegrast 5 % eye (unit s (unknown) date) drops in a unknown) dropperette (Xiidra) drp EYE-BOTH 08/15/21 (unknown) (no (unknown) (unknown) listen to the radio, (uni ts (unknown) date) or read as if you unknown) associate falling asleep with these (unknown) (no (unknown) (unknown) mask. He was (units (u nknown) date) encouraged to go back unknown) to the [facility] [place] clip on device that can (unknown) (no (unknown) (unknown) may occur. (units (unk nown) date) Occasional wrong-word unknown) or 'sound-alike' substitutions may have (unknown) (no (unknown) (unknown) morning, denies (units (unknown) date) nocturnal cough, unknown) denies nocturnal palpitations, denies heart (unknown) (no (unknown) (unknown) nasal saline and (units (unknown) date) internal and external unknown) nasal dilator therapies were discussed. (unknown) (no (unknown) (unknown) occurred due to the (unit s (unknown) date) inherent limitations unknown) of voice recognition software. Please (unknown) (no (unknown) (unknown) older people who may (uni ts (unknown) date) not venture outside unknown) as frequently as children and adults. (unknown) (no (unknown) (unknown) on PAP well, sleep (units (unknown) date) quality well and unknown) daytime sleepiness Daytime Sleepiness Branch (unknown) (no (unknown) (unknown) on the sleep study. (unit s (unknown) date) unknown) (unknown) (no (unknown) (unknown) optimal sleep (units ( unknown) date) schedule. unknown) (unknown) (no (unknown) (unknown) pain), denies (units ( unknown) date) dizziness in the unknown) morning, denies trouble consentrating/focusin g (unknown) (no (unknown) (unknown) pattern. NPSG (units ( unknown) date) consistent with unknown) moderate LORI (AHI 15.2) with desaturation events (unknown) (no (unknown) (unknown) personal electronic (unit s (unknown) date) devices, can also unknown) help maintain a healthy sleep-wake cycle. (unknown) (no (unknown) (unknown) problem. Sleep (units (unknown) date) hygiene and sleep unknown) schedules were discussed. This will be (unknown) (no (unknown) (unknown) read the note (units ( unknown) date) carefully and unknown) recognize, using context, where these substitutions (unknown) (no (unknown) (unknown) reassessed after (units (unknown) date) CPAP is optimized. unknown) (unknown) (no (unknown) (unknown) reports night (units ( unknown) date) sweats, reports unknown) morning headache (sometimes), denies nasal (unknown) (no (unknown) (unknown) resolution of (units ( unknown) date) snoring and decreased unknown) daytime sleepiness. He is clearly (unknown) (no (unknown) (unknown) reviewed. This will (unit s (unknown) date) be reassessed once unknown) mask is optimized. (unknown) (no (unknown) (unknown) sentences and no (units (unknown) date) audible wheezes unknown) (unknown) (no (unknown) (unknown) software. 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 (unit s (unknown) date) Mask exhaust blows unknown) air to his eyes and this wakes him up. (unknown) (no (unknown) (unknown) taken in the morning (uni ts (unknown) date) or late afternoon. A unknown) relaxing exercise, like yoga, can be (unknown) (no (unknown) (unknown) the second half as (units (unknown) date) the body begins to unknown) metabolize the alcohol, causing arousal. (unknown) (no (unknown) (unknown) to sleep apnea, (units (unknown) date) depression, medical unknown) conditions or can be an independent (unknown) (no (unknown) (unknown) treatment improving (unit s (unknown) date) on treatment unknown) (unknown) (no (unknown) (unknown) wellbutrin PO DAILY (unit s (unknown) date) 09/10/22 [History] unknown) (unknown) (no (unknown) (unknown) wish to do this yet (unit s (unknown) date) and agrees to call unknown) DME. (unknown) (no (unknown) (unknown) with a sleep (units (u nknown) date) problem, it's not a unknown) good time to start experimenting with spicy (unknown) (no (unknown) (unknown) with the machine or (unit s (unknown) date) pressure. He is unknown) showing positive clinical improvement with Result panel 9 (unknown) (no (unknown) (unknown) (no value) (units (unk nown) date) unknown) (unknown) (no (unknown) (unknown) (1) Obstructive (units (unknown) date) sleep apnea of adult: unknown) (unknown) (no (unknown) (unknown) (2) Excessive (units ( unknown) date) daytime sleepiness: unknown) (unknown) (no (unknown) (unknown) (3) Insomnia: (units ( unknown) date) unknown) (unknown) (no (unknown) (unknown) (4) History of (units (unknown) date) snoring: unknown) (unknown) (no (unknown) (unknown) 0 = Would never doze (uni ts (unknown) date) or sleep, 1 = Slight unknown) chance of dozing or sleeping, 2 = (unknown) (no (unknown) (unknown) 09/10/22 (units (unkno wn) date) unknown) (unknown) (no (unknown) (unknown) 09/11/22 0850 (units ( unknown) date) unknown) (unknown) (no (unknown) (unknown) 11:21 (units (unkno wn) date) unknown) (unknown) (no (unknown) (unknown) . This can be (units (unknown) date) seen secondary to unknown) sleep apnea, insomnia, depression, medical (unknown) (no (unknown) (unknown) 2: better (units (unkn own) date) unknown) (unknown) (no (unknown) (unknown) [id number] (units (unkno wn) date) unknown) (unknown) (no (unknown) (unknown) 86%. CPAP initiated. (uni ts (unknown) date) unknown) (unknown) (no (unknown) (unknown) Add'l Complaint: (units (unknown) date) unknown) (unknown) (no (unknown) (unknown) Adhere to regular (units (unknown) date) mealtime schedule, unknown) avoid snacking (unknown) (no (unknown) (unknown) Affect: normal (units (unknown) date) affect unknown) (unknown) (no (unknown) (unknown) Age/Sex: 42 / M Date (uni ts (unknown) date) of Service: unknown) (unknown) (no (unknown) (unknown) Allergies (units (unkn own) date) unknown) (unknown) (no (unknown) (unknown) [place] [address] (unit s (unknown) date) unknown) (unknown) (no (unknown) (unknown) 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 It's not unknown) a good idea to use your bed to watch TV, (unknown) (no (unknown) (unknown) Attending Dr: Paradise (unit s (unknown) date) Layla CRAIGP unknown) (unknown) (no (unknown) (unknown) Attitude: (units (unkn own) date) cooperative unknown) (unknown) (no (unknown) (unknown) Auto CPAP set (units ( unknown) date) pressures: 5-15 CWP unknown) (unknown) (no (unknown) (unknown) Avoid alcohol after (unit s (unknown) date) 4 pm unknown) (unknown) (no (unknown) (unknown) Avoid medications (units (unknown) date) which may interfere unknown) with sleep (unknown) (no (unknown) (unknown) Avoid random napping (uni ts (unknown) date) during the day; it unknown) can disturb the normal pattern of sleep (unknown) (no (unknown) (unknown) Avoid stimulants (units (unknown) date) such as caffeine, unknown) nicotine, and alcohol too close to bedtime. (unknown) (no (unknown) (unknown) BMI 32.9 (units (unkno wn) date) unknown) (unknown) (no (unknown) (unknown) BP 134/99 H (units (un known) date) unknown) (unknown) (no (unknown) (unknown) Being a passenger in (uni ts (unknown) date) a motor vehicle for unknown) an hour or so: 1 = Slight (unknown) (no (unknown) (unknown) Blood Pressure (units (unknown) date) Location Lt brachial unknown) (unknown) (no (unknown) (unknown) CPAP (5-15 cwp) (units (unknown) date) unknown) (unknown) (no (unknown) (unknown) CPAP. (units (unkno wn) date) unknown) (unknown) (no (unknown) (unknown) Caffeine Branch: no (unit s (unknown) date) and denies sleeping unknown) pills (unknown) (no (unknown) (unknown) Cardiac (units (unkno wn) date) unknown) (unknown) (no (unknown) (unknown) Chief Complaint: (units (unknown) date) Follow up CPAP unknown) therapy for LORI (unknown) (no (unknown) (unknown) Clinical Course (units (unknown) date) unknown) (unknown) (no (unknown) (unknown) Cognition: normal (units (unknown) date) cognition unknown) (unknown) (no (unknown) (unknown) Compliance visit (units (unknown) date) unknown) (unknown) (no (unknown) (unknown) Condition is Onset: (unit s (unknown) date) Chronic and ongoing unknown) condition (unknown) (no (unknown) (unknown) Conjunctivae: (units ( unknown) date) conjunctivae normal unknown) (unknown) (no (unknown) (unknown) Consider weaning (units (unknown) date) caffeine use, unknown) starting with no caffeine after 3pm (unknown) (no (unknown) (unknown) Const (units (unkno wn) date) unknown) (unknown) (no (unknown) (unknown) Currently using CPAP (uni ts (unknown) date) 5-15 cwp. Compliance unknown) data reviewed, implications of (unknown) (no (unknown) (unknown) Currently using CPAP (uni ts (unknown) date) 5-15 cwp. Using the unknown) device regularly. Reports no concerns (unknown) (no (unknown) (unknown) DME: [employer] (units (un known) date) unknown) (unknown) (no (unknown) (unknown) : 1980 (units (unknown) date) Acct:[id number] unknown) (unknown) (no (unknown) (unknown) Denies bloating on (units (unknown) date) CPAP unknown) (unknown) (no (unknown) (unknown) Denies chest pain (units (unknown) date) unknown) (unknown) (no (unknown) (unknown) Denies dyspnea at (units (unknown) date) night unknown) (unknown) (no (unknown) (unknown) Details: (units (unkno wn) date) unknown) (unknown) (no (unknown) (unknown) Device data last 30 (unit s (unknown) date) days: unknown) (unknown) (no (unknown) (unknown) Device set up: (units (unknown) date) 07/14/2022 unknown) (unknown) (no (unknown) (unknown) Documented By: (units (unknown) date) Paradise Rich unknown) 09/10/22 0901 (unknown) (no (unknown) (unknown) Drowsy driving (units (unknown) date) handout made unknown) available. (unknown) (no (unknown) (unknown) Ears: hearing (units ( unknown) date) grossly normal unknown) bilaterally (unknown) (no (unknown) (unknown) Effort + Inspection: (uni ts (unknown) date) normal respiratory unknown) effort, able to speak in complete (unknown) (no (unknown) (unknown) Encouraged to call (units (unknown) date) DME for options. May unknown) need to try oral device. He does not (unknown) (no (unknown) (unknown) Ensure adequate (units (unknown) date) exposure to natural unknown) light. This is particularly important for (unknown) (no (unknown) (unknown) [place] Score: 10 (units (unknown) date) unknown) (unknown) (no (unknown) (unknown) [place] Sleepiness (units (unknown) date) Scale unknown) (unknown) (no (unknown) (unknown) Establish a regular (units (unknown) date) relaxing bedtime unknown) routine. Try to avoid emotionally upsetting (unknown) (no (unknown) (unknown) Exacerbating/Allevia (uni ts (unknown) date) ting Factors unknown) (unknown) (no (unknown) (unknown) Exam Narrative (units (unknown) date) unknown) (unknown) (no (unknown) (unknown) Exam Narrative: (units (unknown) date) unknown) (unknown) (no (unknown) (unknown) Exam (units (unkno wn) date) unknown) (unknown) (no (unknown) (unknown) Eyes (units (unkno wn) date) unknown) (unknown) (no (unknown) (unknown) Food can be (units (un known) date) disruptive right unknown) before sleep; stay away from large meals close to (unknown) (no (unknown) (unknown) GI (units (unkno wn) date) unknown) (unknown) (no (unknown) (unknown) General: (units (unkno wn) date) cooperative, unknown) comfortable and no acute distress (unknown) (no (unknown) (unknown) General: patient (units (unknown) date) alert, patient awake unknown) and patient oriented x3 (unknown) (no (unknown) (unknown) Get regular moderate (uni ts (unknown) date) exercise (30 minutes, unknown) 3x/week) (unknown) (no (unknown) (unknown) HENMT (units (unkno wn) date) unknown) (unknown) (no (unknown) (unknown) HPI Sleep Follow Up (unit s (unknown) date) unknown) (unknown) (no (unknown) (unknown) HPI (units (unkno wn) date) unknown) (unknown) (no (unknown) (unknown) HYDROCHLOROTHIAZIDE (unit s (unknown) date) PO 08/15/21 [History unknown) Confirmed 09/10/22] (unknown) (no (unknown) (unknown) Has been working (units (unknown) date) with [employer] and does unknown) not feel it is working out. Does not want (unknown) (no (unknown) (unknown) He does not wish to (unit s (unknown) date) do this yet. unknown) (unknown) (no (unknown) (unknown) Head: normal to (units (unknown) date) inspection unknown) (unknown) (no (unknown) (unknown) Height 182.88 cm (units (unknown) date) unknown) (unknown) (no (unknown) (unknown) Insomnia type: (units (unknown) date) unspecified Qualified unknown) Code(s): G47.00 - Insomnia, (unknown) (no (unknown) (unknown) Intake (units (unkno wn) date) unknown) (unknown) (no (unknown) (unknown) Light exposure (units (unknown) date) during the day helps unknown) maintain a healthy sleep-wake cycle. In (unknown) (no (unknown) (unknown) Loc: SLEEP (units (unk nown) date) unknown) (unknown) (no (unknown) (unknown) Lying down in the (units (unknown) date) afternoon: 2 = unknown) Moderate (unknown) (no (unknown) (unknown) Make sure that the (units (unknown) date) sleep environment is unknown) pleasant and relaxing. The bed should be (unknown) (no (unknown) (unknown) Medical History (units (unknown) date) (Updated 09/10/22 @ unknown) 09:05 by BRITTANY Maynard) (unknown) (no (unknown) (unknown) Medications (units (un known) date) unknown) (unknown) (no (unknown) (unknown) Moderate LORI. (units ( unknown) date) Patient reports a unknown) history of snoring and a disturbed sleep (unknown) (no (unknown) (unknown) Moderate chance of (units (unknown) date) dozing or sleeping, 3 unknown) = High chance of dozing or sleeping (unknown) (no (unknown) (unknown) Mood: congruent mood (uni ts (unknown) date) unknown) (unknown) (no (unknown) (unknown) NPSG consistent with (uni ts (unknown) date) moderate LORI (AHI unknown) 15.2) with desaturation events down to (unknown) (no (unknown) (unknown) Neck (units (unkno wn) date) unknown) (unknown) (no (unknown) (unknown) Neck: normal visual (unit s (unknown) date) inspection unknown) (unknown) (no (unknown) (unknown) Neuro (units (unkno wn) date) unknown) (unknown) (no (unknown) (unknown) Obstructive sleep (units (unknown) date) apnea of adult unknown) (unknown) (no (unknown) (unknown) PFSH (units (unkno wn) date) unknown) (unknown) (no (unknown) (unknown) Pain scale (1-10): 1 (uni ts (unknown) date) unknown) (unknown) (no (unknown) (unknown) Pain (units (unkno wn) date) unknown) (unknown) (no (unknown) (unknown) Patient has a (units ( unknown) date) history of chronic unknown) snoring. He is no longer snoring on CPAP. (unknown) (no (unknown) (unknown) Patient instructed (units (unknown) date) to use scheduled naps unknown) as needed for drowsiness safety (unknown) (no (unknown) (unknown) Patient prescribed (units (unknown) date) continued CPAP unknown) therapy at 5-15 cwp. No changes made today. (unknown) (no (unknown) (unknown) Patient reports a (units (unknown) date) history of snoring unknown) and a disturbed sleep pattern. There is (unknown) (no (unknown) (unknown) Patient reports (units (unknown) date) alcohol Sleep Alcohol unknown) Branch: never, reports caffeine Sleep (unknown) (no (unknown) (unknown) Patient reports (units (unknown) date) difficulty falling unknown) asleep is denied, difficulty staying asleep (unknown) (no (unknown) (unknown) Patient reports (units (unknown) date) symptoms of chronic unknown) insomnia for more than 3 months as evidenced (unknown) (no (unknown) (unknown) Patient was (units (un known) date) encouraged to unknown) maintain PAP usage at a minimum of 4 hours a night, (unknown) (no (unknown) (unknown) Patient was (units (un known) date) instructed to avoid unknown) driving or operating heavy machinery when (unknown) (no (unknown) (unknown) Patient: (units (unkno wn) date) Jerzy Reeder MR#: unknown) [id number] (unknown) (no (unknown) (unknown) Pertinent (units (unkn own) date) Positives/Negatives unknown) (unknown) (no (unknown) (unknown) Plan (units (unkno wn) date) unknown) (unknown) (no (unknown) (unknown) Please go to [facility] for (uni ts (unknown) date) mask options. unknown) (unknown) (no (unknown) (unknown) Please review the (units (unknown) date) following unknown) suggestions: (unknown) (no (unknown) (unknown) Position Sitting (units (unknown) date) unknown) (unknown) (no (unknown) (unknown) Prescription written (uni ts (unknown) date) for renewal of PAP unknown) supplies; (unknown) (no (unknown) (unknown) Properly timed (units (unknown) date) exercise can promote unknown) good sleep. Vigorous exercise should be (unknown) (no (unknown) (unknown) Psych (units (unkno wn) date) unknown) (unknown) (no (unknown) (unknown) Psychological (units ( unknown) date) unknown) (unknown) (no (unknown) (unknown) Pulse 75 (units (unkno wn) date) unknown) (unknown) (no (unknown) (unknown) Pulse Source Monitor (uni ts (unknown) date) unknown) (unknown) (no (unknown) (unknown) Qualifiers: (units (un known) date) unknown) (unknown) (no (unknown) (unknown) Questionnaires (units (unknown) date) unknown) (unknown) (no (unknown) (unknown) ROS Sleep (units (unkn own) date) unknown) (unknown) (no (unknown) (unknown) Reason For Visit (units (unknown) date) unknown) (unknown) (no (unknown) (unknown) Reports daytime (units (unknown) date) sleepiness (improved) unknown) and Reports difficulty sleeping (improved) (unknown) (no (unknown) (unknown) Reports napping on (units (unknown) date) occassion unknown) (unknown) (no (unknown) (unknown) Reports seasonal (units (unknown) date) allergies unknown) (unknown) (no (unknown) (unknown) Resp (units (unkno wn) date) unknown) (unknown) (no (unknown) (unknown) Respiration 14 (units (unknown) date) unknown) (unknown) (no (unknown) (unknown) Respiratory (units (un known) date) unknown) (unknown) (no (unknown) (unknown) Return visit in 6 (units (unknown) date) months to assess unknown) continued response to PAP therapy Patient was (unknown) (no (unknown) (unknown) SWELLING (units (unkno wn) date) unknown) (unknown) (no (unknown) (unknown) Sclera: sclerae (units (unknown) date) normal unknown) (unknown) (no (unknown) (unknown) Signed By: (units (unk nown) date) <Electronically unknown) signed by Paradise Rich> (unknown) (no (unknown) (unknown) Signed (units (unkno wn) date) unknown) (unknown) (no (unknown) (unknown) Sitting and Reading: (uni ts (unknown) date) 2 = Moderate unknown) (unknown) (no (unknown) (unknown) Sitting and talking (unit s (unknown) date) to someone: 0 = Never unknown) (None) (unknown) (no (unknown) (unknown) Sitting inactive in (unit s (unknown) date) a public place: 1 = unknown) Slight (unknown) (no (unknown) (unknown) Sitting quietly (units (unknown) date) after lunch (no unknown) alcohol): 2 = Moderate (unknown) (no (unknown) (unknown) Sleep Schedule (units (unknown) date) Branch: consistent, unknown) daytime somnolence rare, snoring not (unknown) (no (unknown) (unknown) Sleep Visit (units (un known) date) unknown) (unknown) (no (unknown) (unknown) [facility]) (unknown) (no (unknown) (unknown) Smoking Status: (units (unknown) date) Never smoker unknown) (unknown) (no (unknown) (unknown) Speech and Movement: (uni ts (unknown) date) speech and movement unknown) normal (unknown) (no (unknown) (unknown) Speech: speech (units (unknown) date) normal unknown) (unknown) (no (unknown) (unknown) Status: Acute (units ( unknown) date) unknown) (unknown) (no (unknown) (unknown) Stopped for a few (units (unknown) date) minutes in traffic: 0 unknown) = Never (None) (unknown) (no (unknown) (unknown) Sulfa (Sulfonamide (units (unknown) date) Antibiotics) Allergy unknown) (Verified 09/10/22 11:20) (unknown) (no (unknown) (unknown) Symptoms (units (unkno wn) date) unknown) (unknown) (no (unknown) (unknown) Temp 97.7 F (units (un known) date) unknown) (unknown) (no (unknown) (unknown) Temp Source Temporal (uni ts (unknown) date) Artery Scan unknown) (unknown) (no (unknown) (unknown) The patient reports (unit s (unknown) date) symptoms of excessive unknown) daytime sleepiness as evidenced by (unknown) (no (unknown) (unknown) This note may have (units (unknown) date) been all or partially unknown) generated using voice recognition (unknown) (no (unknown) (unknown) Tobacco + Substance (unit s (unknown) date) Use unknown) (unknown) (no (unknown) (unknown) Tobacco Status (units (unknown) date) unknown) (unknown) (no (unknown) (unknown) Treatment Effects: (units (unknown) date) Pap Treatment unknown) Response/Side Effects: adherent to current PAP (unknown) (no (unknown) (unknown) Treatment (units (unkn own) date) Response/Side Affects unknown) (unknown) (no (unknown) (unknown) Usage: 87% with 83% (unit s (unknown) date) greater than 4 hours. unknown) Leak 28.4. 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) (unknown) (no (unknown) (unknown) Visit type (FU): (units (unknown) date) follow up of LORI unknown) therapy Follow up evaluation of LORI therapy: (unknown) (no (unknown) (unknown) Vitals (units (unkno wn) date) unknown) (unknown) (no (unknown) (unknown) Watching TV: 2 = (units (unknown) date) Moderate unknown) (unknown) (no (unknown) (unknown) Weight 110.223 kg (units (unknown) date) unknown) (unknown) (no (unknown) (unknown) While alcohol is (units (unknown) date) well known to speed unknown) the onset of sleep, it disrupts sleep in (unknown) (no (unknown) (unknown) [History Confirmed (units (unknown) date) 09/10/22] unknown) (unknown) (no (unknown) (unknown) a little, normal (units (unknown) date) bedtime ([id number]), unknown) normal wake time (0800), sleep schedule (unknown) (no (unknown) (unknown) activities, you may (unit s (unknown) date) have more problems unknown) getting back to sleep during the night. (unknown) (no (unknown) (unknown) addition, avoiding (units (unknown) date) nighttime bright unknown) light exposure, which can occur with many (unknown) (no (unknown) (unknown) also a history of (units (unknown) date) hypertension and unknown) depression with a Mallampati score of IV. (unknown) (no (unknown) (unknown) and wakefulness. (units (unknown) date) Scheduled napping may unknown) be considered if appropriate for the (unknown) (no (unknown) (unknown) appreciated, apnea (units (unknown) date) not witnessed, unknown) choking or gasping Choking or Gasping Branch: (unknown) (no (unknown) (unknown) at . (units (unknown) date) unknown) (unknown) (no (unknown) (unknown) bedtime. Also dietary (uni ts (unknown) date) changes can cause unknown) sleep problems, if someone is struggling (unknown) (no (unknown) (unknown) better. He is (units ( unknown) date) clearly benefitting unknown) from therapy and willing to continue with (unknown) (no (unknown) (unknown) bring your problems (unit s (unknown) date) to bed. unknown) (unknown) (no (unknown) (unknown) burn symptoms at (units (unknown) date) night, reports unknown) nocturia (once per night), reports pain (back (unknown) (no (unknown) (unknown) but increased (units ( unknown) date) benefit from more unknown) usage was also explained. (unknown) (no (unknown) (unknown) by trouble staying (units (unknown) date) asleep and unknown) non-restorative sleep. This can be seen secondary (unknown) (no (unknown) (unknown) clearly benefitting (unit s (unknown) date) from therapy and unknown) willing to continue with CPAP. (unknown) (no (unknown) (unknown) comfortable, the (units (unknown) date) room should be quiet, unknown) not too hot or cold, or too bright. (unknown) (no (unknown) (unknown) conditions or can be (uni ts (unknown) date) a primary problem. unknown) Risks and symptoms of drowsiness were (unknown) (no (unknown) (unknown) congestion at night, (uni ts (unknown) date) reports dry mouth unknown) (sometimes), denies sore throat in the (unknown) (no (unknown) (unknown) conversations and (units (unknown) date) activities before unknown) trying to go to sleep. Don't dwell on, or (unknown) (no (unknown) (unknown) daytime sleeping and (uni ts (unknown) date) an initially elevated unknown) [place] Sleepiness Scale score of (unknown) (no (unknown) (unknown) denied, epworth (units (unknown) date) sleep scale score unknown) (09/15) and bruxism Bruxism Branch: denied (unknown) (no (unknown) (unknown) diffuse the exhaust (unit s (unknown) date) a different way. He unknown) will call. May need to try oral device. (unknown) (no (unknown) (unknown) dishes. And, (units (u nknown) date) remember, chocolate unknown) has caffeine. (unknown) (no (unknown) (unknown) done before bed to (units (unknown) date) help initiate a unknown) restful night's sleep. (unknown) (no (unknown) (unknown) down to 86%. CPAP (units (unknown) date) initiated. unknown) (unknown) (no (unknown) (unknown) drowsy. (units (unkno wn) date) unknown) (unknown) (no (unknown) (unknown) due to the inherent (unit s (unknown) date) limitations of voice unknown) recognition software. Please read the (unknown) (no (unknown) (unknown) durng the day, (units (unknown) date) reports depression unknown) (managed) and reports anxiety (unknown) (no (unknown) (unknown) findings discussed. (unit s (unknown) date) Compliance is unknown) excellent with optimal AHI flow. He is (unknown) (no (unknown) (unknown) for him. Would like (unit s (unknown) date) to know if there was unknown) a way to redirect the exhaust on the (unknown) (no (unknown) (unknown) his eye issues to (units (unknown) date) worsen as there is no unknown) further ophthalmological intervention (unknown) (no (unknown) (unknown) instructed to return (uni ts (unknown) date) sooner if any unknown) questions or concerns arise. (unknown) (no (unknown) (unknown) intermittent, early (unit s (unknown) date) morning awakening unknown) denied, spending time in bed not sleeping (unknown) (no (unknown) (unknown) lifitegrast 5 % eye (unit s (unknown) date) drops in a unknown) dropperette (Xiidra) drp EYE-BOTH 08/15/21 (unknown) (no (unknown) (unknown) listen to the radio, (uni ts (unknown) date) or read as if you unknown) associate falling asleep with these (unknown) (no (unknown) (unknown) mask. He was (units (u nknown) date) encouraged to go back unknown) to the [facility] [place] device that can (unknown) (no (unknown) (unknown) morning, denies (units (unknown) date) nocturnal cough, unknown) denies nocturnal palpitations, denies heart (unknown) (no (unknown) (unknown) note carefully and (units (unknown) date) recognize, using unknown) context, where these substitutions have (unknown) (no (unknown) (unknown) occurred. If there (units (unknown) date) are any questions, unknown) please contact the Medical Records Dept (unknown) (no (unknown) (unknown) older people who may (uni ts (unknown) date) not venture outside unknown) as frequently as children and adults. (unknown) (no (unknown) (unknown) on PAP well, sleep (units (unknown) date) quality well and unknown) daytime sleepiness Daytime Sleepiness Branch (unknown) (no (unknown) (unknown) optimal sleep (units ( unknown) date) schedule. unknown) (unknown) (no (unknown) (unknown) pain), denies (units ( unknown) date) dizziness in the unknown) morning, denies trouble consentrating/focusin g (unknown) (no (unknown) (unknown) pattern. NPSG (units ( unknown) date) consistent with unknown) moderate LORI (AHI 15.2) with desaturation events (unknown) (no (unknown) (unknown) personal electronic (unit s (unknown) date) devices, can also unknown) help maintain a healthy sleep-wake cycle. (unknown) (no (unknown) (unknown) problem. Sleep (units (unknown) date) hygiene and sleep unknown) schedules were discussed. This has improved (unknown) (no (unknown) (unknown) reassessed once mask (uni ts (unknown) date) is optimized. unknown) (unknown) (no (unknown) (unknown) reports night (units ( unknown) date) sweats, reports unknown) morning headache (sometimes), denies nasal (unknown) (no (unknown) (unknown) resolution of (units ( unknown) date) snoring and decreased unknown) daytime sleepiness. He feels he is sleeping (unknown) (no (unknown) (unknown) reviewed. This has (units (unknown) date) improved on CPAP with unknown) current score of 10/24. This will be (unknown) (no (unknown) (unknown) sentences and no (units (unknown) date) audible wheezes unknown) (unknown) (no (unknown) (unknown) since starting CPAP (unit s (unknown) date) and he no longer has unknown) difficulty falling asleep. (unknown) (no (unknown) (unknown) software. 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 (unit s (unknown) date) Mask exhaust blows unknown) air to his eyes and this wakes him up. (unknown) (no (unknown) (unknown) taken in the morning (uni ts (unknown) date) or late afternoon. A unknown) relaxing exercise, like yoga, can be (unknown) (no (unknown) (unknown) the second half as (units (unknown) date) the body begins to unknown) metabolize the alcohol, causing arousal. (unknown) (no (unknown) (unknown) to sleep apnea, (units (unknown) date) depression, medical unknown) conditions or can be an independent (unknown) (no (unknown) (unknown) treatment improving (unit s (unknown) date) on treatment unknown) (unknown) (no (unknown) (unknown) unspecified (units (un known) date) unknown) (unknown) (no (unknown) (unknown) wellbutrin PO DAILY (unit s (unknown) date) 09/10/22 [History] unknown) (unknown) (no (unknown) (unknown) wish to do this yet (unit s (unknown) date) and agrees to call unknown) DME. (unknown) (no (unknown) (unknown) with a sleep (units (u nknown) date) problem, it's not a unknown) good time to start experimenting with spicy (unknown) (no (unknown) (unknown) with the machine or (unit s (unknown) date) pressure. He is unknown) showing positive clinical improvement with (unknown) (no (unknown) (unknown) y occur. Occasional (unit s (unknown) date) wrong-word or unknown) 'sound-alike' substitutions may have occurred Result panel 10 (unknown) (no (unknown) (unknown) (no value) (units (unk nown) date) unknown) (unknown) (no (unknown) (unknown) (1) Obstructive (units (unknown) date) sleep apnea of unknown) adult: (unknown) (no (unknown) (unknown) (2) Excessive (units ( unknown) date) daytime sleepiness: unknown) (unknown) (no (unknown) (unknown) 09/10/22 (units (unkno wn) date) unknown) (unknown) (no (unknown) (unknown) . This can be (units (unknown) date) seen secondary to unknown) sleep apnea, insomnia, depression, medical (unknown) (no (unknown) (unknown) 2: better (units (unkn own) date) unknown) (unknown) (no (unknown) (unknown) [id number] (units (unkno wn) date) unknown) (unknown) (no (unknown) (unknown) 86%. CPAP (units (unkn own) date) initiated. 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, unknown) surgical intervention was completed but he (unknown) (no (unknown) (unknown) Appearance: (units (un known) date) grossly normal unknown) (unknown) (no (unknown) (unknown) Assessment + Plan (units (unknown) date) unknown) (unknown) (no (unknown) (unknown) Assessment and (units (unknown) date) Plan: unknown) (unknown) (no (unknown) (unknown) Attending Dr: (units ( unknown) date) [place] SOTO unknown) (unknown) (no (unknown) (unknown) Attitude: (units (unkn own) date) cooperative unknown) (unknown) (no (unknown) (unknown) Auto CPAP set (units ( unknown) date) pressures: 5-15 CWP unknown) (unknown) (no (unknown) (unknown) CPAP (5-15 cwp) (units (unknown) date) unknown) (unknown) (no (unknown) (unknown) CPAP. (units (unkno wn) date) unknown) (unknown) (no (unknown) (unknown) Caffeine Branch: (units (unknown) date) no and denies unknown) sleeping pills (unknown) (no (unknown) (unknown) Chief Complaint: (units (unknown) date) Follow up CPAP unknown) therapy for LORI (unknown) (no (unknown) (unknown) Clinical Course (units (unknown) date) unknown) (unknown) (no (unknown) (unknown) Cognition: normal (units (unknown) date) cognition unknown) (unknown) (no (unknown) (unknown) Condition is (units (u nknown) date) Onset: Chronic and unknown) ongoing condition (unknown) (no (unknown) (unknown) Conjunctivae: (units ( unknown) date) conjunctivae normal unknown) (unknown) (no (unknown) (unknown) Const (units (unkno wn) date) unknown) (unknown) (no (unknown) (unknown) Currently using (units (unknown) date) CPAP 5-15 cwp. unknown) Compliance data reviewed, implications of (unknown) (no (unknown) (unknown) Currently using (units (unknown) date) CPAP 5-15 cwp. unknown) Using the device regularly. Reports no concerns (unknown) (no (unknown) (unknown) DME: [employer] (units (un known) date) unknown) (unknown) (no (unknown) (unknown) : 1980 (units (unknown) date) Acct:[id number] unknown) (unknown) (no (unknown) (unknown) Dept at (units (unkno wn) date) . unknown) (unknown) (no (unknown) (unknown) Details: (units (unkno wn) date) unknown) (unknown) (no (unknown) (unknown) Device data last (units (unknown) date) 90 days: unknown) (unknown) (no (unknown) (unknown) Device set up: (units (unknown) date) 07/14/2022 unknown) (unknown) (no (unknown) (unknown) Documented By: (units (unknown) date) Paradise Rich unknown) 11/06/22 1331 (unknown) (no (unknown) (unknown) Draft (units (unkno wn) date) unknown) (unknown) (no (unknown) (unknown) Drowsy driving (units (unknown) date) handout made unknown) available. (unknown) (no (unknown) (unknown) Ears: hearing (units ( unknown) date) grossly normal unknown) bilaterally (unknown) (no (unknown) (unknown) Effort + (units (unkno wn) date) Inspection: normal unknown) respiratory effort, able to speak in complete (unknown) (no (unknown) (unknown) Encouraged to call (units (unknown) date) DME for options. unknown) May need to try oral device. He does not (unknown) (no (unknown) (unknown) Exacerbating/Allev (units (unknown) date) iating Factors unknown) (unknown) (no (unknown) (unknown) Exam Narrative (units (unknown) date) unknown) (unknown) (no (unknown) (unknown) Exam Narrative: (units (unknown) date) unknown) (unknown) (no (unknown) (unknown) Exam (units (unkno wn) date) unknown) (unknown) (no (unknown) (unknown) Eyes (units (unkno wn) date) unknown) (unknown) (no (unknown) (unknown) General: (units (unkno wn) date) cooperative, unknown) comfortable and no acute distress (unknown) (no (unknown) (unknown) General: patient (units (unknown) date) alert, patient unknown) awake and patient oriented x3 (unknown) (no (unknown) (unknown) HENMT (units (unkno wn) date) unknown) (unknown) (no (unknown) (unknown) HPI Sleep Follow (units (unknown) date) Up unknown) (unknown) (no (unknown) (unknown) HPI (units (unkno wn) date) unknown) (unknown) (no (unknown) (unknown) Has been working (units (unknown) date) with [employer] and unknown) does not feel it is working out. Does not want (unknown) (no (unknown) (unknown) He does not wish (units (unknown) date) to do this yet. unknown) (unknown) (no (unknown) (unknown) Head: normal to (units (unknown) date) inspection unknown) (unknown) (no (unknown) (unknown) Intake (units (unkno wn) date) unknown) (unknown) (no (unknown) (unknown) Loc: SLEEP (units (unk nown) date) unknown) (unknown) (no (unknown) (unknown) Medical History (units (unknown) date) (Updated 09/10/22 @ unknown) 09:05 by BRITTANY Maynard) (unknown) (no (unknown) (unknown) Moderate LORI. (units ( unknown) date) Patient reports a unknown) history of snoring and a disturbed sleep (unknown) (no (unknown) (unknown) Mood: congruent (units (unknown) date) mood unknown) (unknown) (no (unknown) (unknown) NPSG consistent (units (unknown) date) with moderate LORI unknown) (AHI 15.2) with desaturation events down to (unknown) (no (unknown) (unknown) Neck (units (unkno wn) date) unknown) (unknown) (no (unknown) (unknown) Neck: normal (units (u nknown) date) visual inspection unknown) (unknown) (no (unknown) (unknown) Neuro (units (unkno wn) date) unknown) (unknown) (no (unknown) (unknown) Obstructive sleep (units (unknown) date) apnea of adult unknown) (unknown) (no (unknown) (unknown) PFSH (units (unkno wn) date) unknown) (unknown) (no (unknown) (unknown) Patient instructed (units (unknown) date) to use scheduled unknown) naps as needed for drowsiness safety (unknown) (no (unknown) (unknown) Patient prescribed (units (unknown) date) continued CPAP unknown) therapy at 5-15 cwp. No changes made today. (unknown) (no (unknown) (unknown) Patient reports a (units (unknown) date) history of snoring unknown) and a disturbed sleep pattern. There is (unknown) (no (unknown) (unknown) Patient reports (units (unknown) date) alcohol Sleep unknown) Alcohol Branch: never, reports caffeine Sleep (unknown) (no (unknown) (unknown) Patient reports (units (unknown) date) difficulty falling unknown) asleep is denied, difficulty staying asleep (unknown) (no (unknown) (unknown) Patient was (units (un known) date) encouraged to unknown) maintain PAP usage at a minimum of 4 hours a night, (unknown) (no (unknown) (unknown) Patient was (units (un known) date) instructed to avoid unknown) driving or operating heavy machinery when (unknown) (no (unknown) (unknown) Patient: (units (unkno wn) date) ReederJerzy MR#: unknown) M000 (unknown) (no (unknown) (unknown) Pertinent (units (unkn own) date) Positives/Negatives unknown) (unknown) (no (unknown) (unknown) Plan (units (unkno wn) date) unknown) (unknown) (no (unknown) (unknown) Prescription (units (u nknown) date) written for renewal unknown) of PAP supplies (unknown) (no (unknown) (unknown) Psych (units (unkno wn) date) unknown) (unknown) (no (unknown) (unknown) Reason For Visit (units (unknown) date) unknown) (unknown) (no (unknown) (unknown) Resp (units (unkno wn) date) unknown) (unknown) (no (unknown) (unknown) SWELLING (units (unkno wn) date) unknown) (unknown) (no (unknown) (unknown) Sclera: sclerae (units (unknown) date) normal unknown) (unknown) (no (unknown) (unknown) Signed By: (units (unk nown) date) unknown) (unknown) (no (unknown) (unknown) Sleep Schedule (units (unknown) date) Branch: consistent, unknown) daytime somnolence rare, snoring not (unknown) (no (unknown) (unknown) Sleep Visit (units (un known) date) unknown) (unknown) (no (unknown) (unknown) [facility] unknown) (unknown) (no (unknown) (unknown) Smoking Status: (units (unknown) date) Never smoker unknown) (unknown) (no (unknown) (unknown) Speech and (units (unk nown) date) Movement: speech unknown) and movement normal (unknown) (no (unknown) (unknown) Speech: speech (units (unknown) date) normal unknown) (unknown) (no (unknown) (unknown) Status: Acute (units ( unknown) date) unknown) (unknown) (no (unknown) (unknown) Sulfa (Sulfonamide (units (unknown) date) Antibiotics) unknown) Allergy (Verified 09/10/22 11:20) (unknown) (no (unknown) (unknown) Symptoms (units (unkno wn) date) unknown) (unknown) (no (unknown) (unknown) The patient (units (un known) date) reports symptoms of unknown) excessive daytime sleepiness as evidenced by (unknown) (no (unknown) (unknown) This note may have (units (unknown) date) been all or unknown) partially generated using voice recognition (unknown) (no (unknown) (unknown) Tobacco + (units (unkn own) date) Substance Use unknown) (unknown) (no (unknown) (unknown) Tobacco Status (units (unknown) date) unknown) (unknown) (no (unknown) (unknown) Treatment Effects: (units (unknown) date) Pap Treatment unknown) Response/Side Effects: adherent to current PAP (unknown) (no (unknown) (unknown) Treatment (units (unkn own) date) Response/Side unknown) Affects (unknown) (no (unknown) (unknown) Unfortunately our (units (unknown) date) sleep center is unknown) closing. Patient understands they should (unknown) (no (unknown) (unknown) Usage: % with % (units (unknown) date) greater than 4 unknown) hours. Leak . 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 unknown) (unknown) (no (unknown) (unknown) Visit type (FU): (units (unknown) date) follow up of LORI unknown) therapy Follow up evaluation of LORI therapy: (unknown) (no (unknown) (unknown) a little, normal (units (unknown) date) bedtime unknown) ([id number]), normal wake time (0800), sleep schedule (unknown) (no (unknown) (unknown) also a history of (units (unknown) date) hypertension and unknown) depression with a Mallampati score of IV. (unknown) (no (unknown) (unknown) appreciated, apnea (units (unknown) date) not witnessed, unknown) choking or gasping Choking or Gasping Branch: (unknown) (no (unknown) (unknown) better. He is (units ( unknown) date) clearly benefitting unknown) from therapy and willing to continue with (unknown) (no (unknown) (unknown) burn symptoms at (units (unknown) date) night, reports unknown) nocturia (once per night), reports pain (back (unknown) (no (unknown) (unknown) but increased (units ( unknown) date) benefit from more unknown) usage was also explained. (unknown) (no (unknown) (unknown) clearly (units (unkno wn) date) benefitting from unknown) therapy and willing to continue with CPAP. (unknown) (no (unknown) (unknown) conditions or can (units (unknown) date) be a primary unknown) problem. Risks and symptoms of drowsiness were (unknown) (no (unknown) (unknown) congestion at (units ( unknown) date) night, reports dry unknown) mouth (sometimes), denies sore throat in the (unknown) (no (unknown) (unknown) daytime sleeping (units (unknown) date) and an initially unknown) elevated [place] Sleepiness Scale score of (unknown) (no (unknown) (unknown) denied, epworth (units (unknown) date) sleep scale score unknown) (09/15) and bruxism Bruxism Branch: denied (unknown) (no (unknown) (unknown) diffuse the (units (un known) date) exhaust a different unknown) way. He will call. May need to try oral device. (unknown) (no (unknown) (unknown) down to 86%. CPAP (units (unknown) date) initiated. unknown) (unknown) (no (unknown) (unknown) drowsy. (units (unkno wn) date) unknown) (unknown) (no (unknown) (unknown) durng the day, (units (unknown) date) reports depression unknown) (managed) and reports anxiety (unknown) (no (unknown) (unknown) findings (units (unkno wn) date) discussed. unknown) Compliance is excellent with optimal AHI flow. He is (unknown) (no (unknown) (unknown) for him. Would (units (unknown) date) like to know if unknown) there was a way to redirect the exhaust on the (unknown) (no (unknown) (unknown) have occurred. 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 He was (units (u nknown) date) encouraged to go unknown) back to the [facility] [place] device that can (unknown) (no (unknown) (unknown) may occur. (units (unk nown) date) Occasional unknown) wrong-word or 'sound-alike' substitutions may have (unknown) (no (unknown) (unknown) morning, denies (units (unknown) date) nocturnal cough, unknown) denies nocturnal palpitations, denies heart (unknown) (no (unknown) (unknown) occurred due to (units (unknown) date) the inherent unknown) limitations of voice recognition software. Please (unknown) (no (unknown) (unknown) on PAP well, sleep (units (unknown) date) quality well and unknown) daytime sleepiness Daytime Sleepiness Branch (unknown) (no (unknown) (unknown) pain), denies (units ( unknown) date) dizziness in the unknown) morning, denies trouble consentrating/focus ing (unknown) (no (unknown) (unknown) pattern. NPSG (units ( unknown) date) consistent with unknown) moderate LORI (AHI 15.2) with desaturation events (unknown) (no (unknown) (unknown) possible for (units (u nknown) date) continued care. unknown) (unknown) (no (unknown) (unknown) read the note (units ( unknown) date) carefully and unknown) recognize, using context, where these substitutions (unknown) (no (unknown) (unknown) reassessed once (units (unknown) date) mask is optimized. unknown) (unknown) (no (unknown) (unknown) reports night (units ( unknown) date) sweats, reports unknown) morning headache (sometimes), denies nasal (unknown) (no (unknown) (unknown) resolution of (units ( unknown) date) snoring and unknown) decreased daytime sleepiness. He feels he is sleeping (unknown) (no (unknown) (unknown) reviewed. This has (units (unknown) date) improved on CPAP unknown) with current score of 10/24. This will be (unknown) (no (unknown) (unknown) schedule an (units (unk nown) date) appointment to unknown) establish care with a new sleep specialist as soon as (unknown) (no (unknown) (unknown) sentences and no (units (unknown) date) audible wheezes unknown) (unknown) (no (unknown) (unknown) software. 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 Mask exhaust unknown) blows air to his eyes and this wakes him up. (unknown) (no (unknown) (unknown) treatment (units (unkn own) date) improving on unknown) treatment (unknown) (no (unknown) (unknown) wish to do this (units (unknown) date) yet and agrees to unknown) call DME. (unknown) (no (unknown) (unknown) with the machine (units (unknown) date) or pressure. He is unknown) showing positive clinical improvement with Result panel 11 (unknown) (no (unknown) (unknown) (no value) (units (unk nown) date) unknown) (unknown) (no (unknown) (unknown) (1) Obstructive (units (unknown) date) sleep apnea of unknown) adult: (unknown) (no (unknown) (unknown) (2) Excessive (units ( unknown) date) daytime sleepiness: unknown) (unknown) (no (unknown) (unknown) 11/06/22 (units (unkno wn) date) unknown) (unknown) (no (unknown) (unknown) . This can be (units (unknown) date) seen secondary to unknown) sleep apnea, insomnia, depression, medical (unknown) (no (unknown) (unknown) 2: better (units (unkn own) date) unknown) (unknown) (no (unknown) (unknown) [id number] (units (unkno wn) date) unknown) (unknown) (no (unknown) (unknown) 86%. CPAP (units (unkn own) date) initiated. 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, unknown) surgical intervention was completed but he (unknown) (no (unknown) (unknown) Appearance: (units (un known) date) grossly normal unknown) (unknown) (no (unknown) (unknown) Assessment + Plan (units (unknown) date) unknown) (unknown) (no (unknown) (unknown) Assessment and (units (unknown) date) Plan: unknown) (unknown) (no (unknown) (unknown) Attending Dr: (units ( unknown) date) Paradise CRAIGP unknown) (unknown) (no (unknown) (unknown) Attitude: (units (unkn own) date) cooperative unknown) (unknown) (no (unknown) (unknown) Auto CPAP set (units ( unknown) date) pressures: 5-15 CWP unknown) (unknown) (no (unknown) (unknown) CPAP (5-15 cwp) (units (unknown) date) unknown) (unknown) (no (unknown) (unknown) Caffeine Branch: (units (unknown) date) no and denies unknown) sleeping pills (unknown) (no (unknown) (unknown) Chief Complaint: (units (unknown) date) Follow up CPAP unknown) therapy for LORI (unknown) (no (unknown) (unknown) Clinical Course (units (unknown) date) unknown) (unknown) (no (unknown) (unknown) Cognition: normal (units (unknown) date) cognition unknown) (unknown) (no (unknown) (unknown) Condition is (units (u nknown) date) Onset: Chronic and unknown) ongoing condition (unknown) (no (unknown) (unknown) Conjunctivae: (units ( unknown) date) conjunctivae normal unknown) (unknown) (no (unknown) (unknown) Const (units (unkno wn) date) unknown) (unknown) (no (unknown) (unknown) Currently supposed (units (unknown) date) to be using CPAP unknown) 5-15 cwp. Compliance data reviewed, (unknown) (no (unknown) (unknown) Currently using (units (unknown) date) CPAP 5-15 cwp. Not unknown) using his device. Tried oral appliance but (unknown) (no (unknown) (unknown) DME: [employer] (units (un known) date) unknown) (unknown) (no (unknown) (unknown) : 1980 (units (unknown) date) Acct:[id number] unknown) (unknown) (no (unknown) (unknown) Dept at (units (unkno wn) date) . unknown) (unknown) (no (unknown) (unknown) Details: (units (unkno wn) date) unknown) (unknown) (no (unknown) (unknown) Device data last (units (unknown) date) 90 days: unknown) (unknown) (no (unknown) (unknown) Device set up: (units (unknown) date) 07/14/2022 unknown) (unknown) (no (unknown) (unknown) Documented By: (units (unknown) date) [place]ise Rich unknown) 11/06/22 1331 (unknown) (no (unknown) (unknown) Draft (units (unkno wn) date) unknown) (unknown) (no (unknown) (unknown) Drowsy driving (units (unknown) date) handout made unknown) available. (unknown) (no (unknown) (unknown) Ears: hearing (units ( unknown) date) grossly normal unknown) bilaterally (unknown) (no (unknown) (unknown) Effort + (units (unkno wn) date) Inspection: normal unknown) respiratory effort, able to speak in complete (unknown) (no (unknown) (unknown) Encouraged to call (units (unknown) date) DME for options. unknown) May need to try oral device. He does not (unknown) (no (unknown) (unknown) Exacerbating/Allev (units (unknown) date) iating Factors unknown) (unknown) (no (unknown) (unknown) Exam Narrative (units (unknown) date) unknown) (unknown) (no (unknown) (unknown) Exam Narrative: (units (unknown) date) unknown) (unknown) (no (unknown) (unknown) Exam (units (unkno wn) date) unknown) (unknown) (no (unknown) (unknown) Eyes (units (unkno wn) date) unknown) (unknown) (no (unknown) (unknown) General: (units (unkno wn) date) cooperative, unknown) comfortable and no acute distress (unknown) (no (unknown) (unknown) General: patient (units (unknown) date) alert, patient unknown) awake and patient oriented x3 (unknown) (no (unknown) (unknown) HENMT (units (unkno wn) date) unknown) (unknown) (no (unknown) (unknown) HPI Sleep Follow (units (unknown) date) Up unknown) (unknown) (no (unknown) (unknown) HPI (units (unkno wn) date) unknown) (unknown) (no (unknown) (unknown) Has been working (units (unknown) date) with [employer] and unknown) does not feel it is working out. Does not want (unknown) (no (unknown) (unknown) He does not wish (units (unknown) date) to do this yet. unknown) (unknown) (no (unknown) (unknown) Head: normal to (units (unknown) date) inspection unknown) (unknown) (no (unknown) (unknown) Intake (units (unkno wn) date) unknown) (unknown) (no (unknown) (unknown) Loc: SLEEP (units (unk nown) date) unknown) (unknown) (no (unknown) (unknown) Medical History (units (unknown) date) (Updated 09/10/22 @ unknown) 09:05 by BRITTANY Maynard) (unknown) (no (unknown) (unknown) Moderate LORI. (units ( unknown) date) Patient reports a unknown) history of snoring and a disturbed sleep (unknown) (no (unknown) (unknown) Mood: congruent (units (unknown) date) mood unknown) (unknown) (no (unknown) (unknown) NPSG consistent (units (unknown) date) with moderate LORI unknown) (AHI 15.2) with desaturation events down to (unknown) (no (unknown) (unknown) Neck (units (unkno wn) date) unknown) (unknown) (no (unknown) (unknown) Neck: normal (units (u nknown) date) visual inspection unknown) (unknown) (no (unknown) (unknown) Neuro (units (unkno wn) date) unknown) (unknown) (no (unknown) (unknown) Obstructive sleep (units (unknown) date) apnea of adult unknown) (unknown) (no (unknown) (unknown) PAP treatment (units ( unknown) date) unknown) (unknown) (no (unknown) (unknown) PFSH (units (unkno wn) date) unknown) (unknown) (no (unknown) (unknown) Patient instructed (units (unknown) date) to use scheduled unknown) naps as needed for drowsiness safety (unknown) (no (unknown) (unknown) Patient prescribed (units (unknown) date) continued CPAP unknown) therapy at 5-15 cwp. No changes made today. (unknown) (no (unknown) (unknown) Patient reports a (units (unknown) date) history of snoring unknown) and a disturbed sleep pattern. There is (unknown) (no (unknown) (unknown) Patient reports (units (unknown) date) alcohol Sleep unknown) Alcohol Branch: never, reports caffeine Sleep (unknown) (no (unknown) (unknown) Patient reports (units (unknown) date) difficulty falling unknown) asleep is denied, difficulty staying asleep (unknown) (no (unknown) (unknown) Patient was (units (un known) date) encouraged to unknown) maintain PAP usage at a minimum of 4 hours a night, (unknown) (no (unknown) (unknown) Patient was (units (un known) date) instructed to avoid unknown) driving or operating heavy machinery when (unknown) (no (unknown) (unknown) Patient: (units (unkno wn) date) Jerzy Reeder MR#: unknown) M000 (unknown) (no (unknown) (unknown) Pertinent (units (unkn own) date) Positives/Negatives unknown) (unknown) (no (unknown) (unknown) Plan (units (unkno wn) date) unknown) (unknown) (no (unknown) (unknown) Prescription (units (u nknown) date) written for renewal unknown) of PAP supplies (unknown) (no (unknown) (unknown) Psych (units (unkno wn) date) unknown) (unknown) (no (unknown) (unknown) Reason For Visit (units (unknown) date) unknown) (unknown) (no (unknown) (unknown) Resp (units (unkno wn) date) unknown) (unknown) (no (unknown) (unknown) SWELLING (units (unkno wn) date) unknown) (unknown) (no (unknown) (unknown) Sclera: sclerae (units (unknown) date) normal unknown) (unknown) (no (unknown) (unknown) Signed By: (units (unk nown) date) unknown) (unknown) (no (unknown) (unknown) Sleep Schedule (units (unknown) date) Branch: consistent, unknown) daytime somnolence rare, snoring not (unknown) (no (unknown) (unknown) Sleep Visit (units (un known) date) unknown) (unknown) (no (unknown) (unknown) [facility] unknown) (unknown) (no (unknown) (unknown) Smoking Status: (units (unknown) date) Never smoker unknown) (unknown) (no (unknown) (unknown) Speech and (units (unk nown) date) Movement: speech unknown) and movement normal (unknown) (no (unknown) (unknown) Speech: speech (units (unknown) date) normal unknown) (unknown) (no (unknown) (unknown) Status: Acute (units ( unknown) date) unknown) (unknown) (no (unknown) (unknown) Sulfa (Sulfonamide (units (unknown) date) Antibiotics) unknown) Allergy (Verified 11/06/22 15:54) (unknown) (no (unknown) (unknown) Symptoms (units (unkno wn) date) unknown) (unknown) (no (unknown) (unknown) The patient (units (un known) date) reports symptoms of unknown) excessive daytime sleepiness as evidenced by (unknown) (no (unknown) (unknown) This note may have (units (unknown) date) been all or unknown) partially generated using voice recognition (unknown) (no (unknown) (unknown) Tobacco + (units (unkn own) date) Substance Use unknown) (unknown) (no (unknown) (unknown) Tobacco Status (units (unknown) date) unknown) (unknown) (no (unknown) (unknown) Treatment Effects: (units (unknown) date) Pap Treatment unknown) Response/Side Effects: nonadherent to current (unknown) (no (unknown) (unknown) Treatment (units (unkn own) date) Response/Side unknown) Affects (unknown) (no (unknown) (unknown) Unfortunately our (units (unknown) date) sleep center is unknown) closing. Patient understands they should (unknown) (no (unknown) (unknown) Usage: % with % (units (unknown) date) greater than 4 unknown) hours. Leak . 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 unknown) (unknown) (no (unknown) (unknown) Visit type (FU): (units (unknown) date) follow up of LORI unknown) therapy Follow up evaluation of LORI therapy: (unknown) (no (unknown) (unknown) a little, normal (units (unknown) date) bedtime unknown) ([id number]), normal wake time (0800), sleep schedule (unknown) (no (unknown) (unknown) also a history of (units (unknown) date) hypertension and unknown) depression with a Mallampati score of IV. (unknown) (no (unknown) (unknown) appreciated, apnea (units (unknown) date) not witnessed, unknown) choking or gasping Choking or Gasping Branch: (unknown) (no (unknown) (unknown) burn symptoms at (units (unknown) date) night, reports unknown) nocturia (once per night), reports pain (back (unknown) (no (unknown) (unknown) but increased (units ( unknown) date) benefit from more unknown) usage was also explained. (unknown) (no (unknown) (unknown) conditions or can (units (unknown) date) be a primary unknown) problem. Risks and symptoms of drowsiness were (unknown) (no (unknown) (unknown) congestion at (units ( unknown) date) night, reports dry unknown) mouth (sometimes), denies sore throat in the (unknown) (no (unknown) (unknown) daytime sleeping (units (unknown) date) and an initially unknown) elevated [place] Sleepiness Scale score of (unknown) (no (unknown) (unknown) denied, epworth (units (unknown) date) sleep scale score unknown) (09/15) and bruxism Bruxism Branch: denied (unknown) (no (unknown) (unknown) diffuse the (units (un known) date) exhaust a different unknown) way. He will call. May need to try oral device. (unknown) (no (unknown) (unknown) down to 86%. CPAP (units (unknown) date) initiated. unknown) (unknown) (no (unknown) (unknown) drowsy. (units (unkno wn) date) unknown) (unknown) (no (unknown) (unknown) durng the day, (units (unknown) date) reports depression unknown) (managed) and reports anxiety (unknown) (no (unknown) (unknown) flow. He is (units (un known) date) clearly benefitting unknown) from therapy and willing to continue with CPAP. (unknown) (no (unknown) (unknown) for him. Would (units (unknown) date) like to know if unknown) there was a way to redirect the exhaust on the (unknown) (no (unknown) (unknown) have occurred. If (units (unknown) date) there are any unknown) questions, please contact the Medical Records (unknown) (no (unknown) (unknown) his eye issues to (units (unknown) date) worsen as there is unknown) no further ophthalmological intervention (unknown) (no (unknown) (unknown) implications of (units (unknown) date) findings discussed. 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 He was (units (u nknown) date) encouraged to go unknown) back [place] [facility] [place] device that can (unknown) (no (unknown) (unknown) may occur. (units (unk nown) date) Occasional unknown) wrong-word or 'sound-alike' substitutions may have (unknown) (no (unknown) (unknown) morning, denies (units (unknown) date) nocturnal cough, unknown) denies nocturnal palpitations, denies heart (unknown) (no (unknown) (unknown) not able to (units (un known) date) tolerate. unknown) (unknown) (no (unknown) (unknown) occurred due to (units (unknown) date) the inherent unknown) limitations of voice recognition software. Please (unknown) (no (unknown) (unknown) on PAP well, sleep (units (unknown) date) quality well and unknown) daytime sleepiness Daytime Sleepiness Branch (unknown) (no (unknown) (unknown) pain), denies (units ( unknown) date) dizziness in the unknown) morning, denies trouble consentrating/focus ing (unknown) (no (unknown) (unknown) pattern. NPSG (units ( unknown) date) consistent with unknown) moderate LORI (AHI 15.2) with desaturation events (unknown) (no (unknown) (unknown) possible for (units (u nknown) date) continued care. unknown) (unknown) (no (unknown) (unknown) read the note (units ( unknown) date) carefully and unknown) recognize, using context, where these substitutions (unknown) (no (unknown) (unknown) reassessed once (units (unknown) date) mask is optimized. unknown) (unknown) (no (unknown) (unknown) reports night (units ( unknown) date) sweats, reports unknown) morning headache (sometimes), denies nasal (unknown) (no (unknown) (unknown) reviewed. This has (units (unknown) date) improved on CPAP unknown) with current score of 10/24. This will be (unknown) (no (unknown) (unknown) schedule an (units (unk nown) date) appointment to unknown) establish care with a new sleep specialist as soon as (unknown) (no (unknown) (unknown) sentences and no (units (unknown) date) audible wheezes unknown) (unknown) (no (unknown) (unknown) software. 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 Mask exhaust unknown) blows air to his eyes and this wakes him up. (unknown) (no (unknown) (unknown) wish to do this (units (unknown) date) yet and agrees to unknown) call DME. Result panel 12 (unknown) (no (unknown) (unknown) (no value) (units (unk nown) date) unknown) (unknown) (no (unknown) (unknown) (1) Obstructive (units (unknown) date) sleep apnea of adult: unknown) (unknown) (no (unknown) (unknown) (2) Excessive (units ( unknown) date) daytime sleepiness: unknown) (unknown) (no (unknown) (unknown) 0 = Would never doze (uni ts (unknown) date) or sleep, 1 = Slight unknown) chance of dozing or sleeping, 2 = (unknown) (no (unknown) (unknown) 11/06/22 (units (unkno wn) date) unknown) (unknown) (no (unknown) (unknown) 15:54 (units (unkno wn) date) unknown) (unknown) (no (unknown) (unknown) . This can be (units (unknown) date) seen secondary to unknown) sleep apnea, insomnia, depression, medical (unknown) (no (unknown) (unknown) 2: better (units (unkn own) date) unknown) (unknown) (no (unknown) (unknown) [id number] (units (unkno wn) date) unknown) (unknown) (no (unknown) (unknown) 86%. CPAP initiated. 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 but he (unknown) (no (unknown) (unknown) Appearance: grossly (unit s (unknown) date) normal unknown) (unknown) (no (unknown) (unknown) Assessment + Plan (units (unknown) date) unknown) (unknown) (no (unknown) (unknown) Assessment and Plan: (uni ts (unknown) date) unknown) (unknown) (no (unknown) (unknown) Attending Dr: Paradise (unit s (unknown) date) Layla PERSONAL CARE SERVICE PROVIDER unknown) (unknown) (no (unknown) (unknown) Attitude: (units (unkn own) date) cooperative unknown) (unknown) (no (unknown) (unknown) Auto CPAP set (units ( unknown) date) pressures: 5-15 CWP unknown) (unknown) (no (unknown) (unknown) BMI 32.4 (units (unkno wn) date) unknown) (unknown) (no (unknown) (unknown) BP 133/78 (units (unkn own) date) unknown) (unknown) (no (unknown) (unknown) Being a passenger in (uni ts (unknown) date) a motor vehicle for unknown) an hour or so: 3 = High (unknown) (no (unknown) (unknown) Blood Pressure (units (unknown) date) Location Lt brachial unknown) (unknown) (no (unknown) (unknown) CPAP (5-15 cwp) (units (unknown) date) unknown) (unknown) (no (unknown) (unknown) Caffeine Branch: no (unit s (unknown) date) and denies sleeping unknown) pills (unknown) (no (unknown) (unknown) Chief Complaint: (units (unknown) date) Follow up CPAP unknown) therapy for LORI (unknown) (no (unknown) (unknown) Clinical Course (units (unknown) date) unknown) (unknown) (no (unknown) (unknown) Cognition: normal (units (unknown) date) cognition unknown) (unknown) (no (unknown) (unknown) Condition is Onset: (unit s (unknown) date) Chronic and ongoing unknown) condition (unknown) (no (unknown) (unknown) Conjunctivae: (units ( unknown) date) conjunctivae normal unknown) (unknown) (no (unknown) (unknown) Const (units (unkno wn) date) unknown) (unknown) (no (unknown) (unknown) Currently supposed (units (unknown) date) to be using CPAP 5-15 unknown) cwp. Compliance data reviewed, (unknown) (no (unknown) (unknown) Currently using CPAP (uni ts (unknown) date) 5-15 cwp. Not using unknown) his device. Tried oral appliance but (unknown) (no (unknown) (unknown) DME: [employer] (units (un known) date) unknown) (unknown) (no (unknown) (unknown) : 1980 (units (unknown) date) Acct:[id number] unknown) (unknown) (no (unknown) (unknown) Dept at (units (unkno wn) date) . unknown) (unknown) (no (unknown) (unknown) Details: (units (unkno wn) date) unknown) (unknown) (no (unknown) (unknown) Device data last 90 (unit s (unknown) date) days: unknown) (unknown) (no (unknown) (unknown) Device set up: (units (unknown) date) 07/14/2022 unknown) (unknown) (no (unknown) (unknown) Documented By: (units (unknown) date) Paradise Rich unknown) 11/06/22 1331 (unknown) (no (unknown) (unknown) Draft (units (unkno wn) date) unknown) (unknown) (no (unknown) (unknown) Drowsy driving (units (unknown) date) handout made unknown) available. (unknown) (no (unknown) (unknown) Ears: hearing (units ( unknown) date) grossly normal unknown) bilaterally (unknown) (no (unknown) (unknown) Effort + Inspection: (uni ts (unknown) date) normal respiratory unknown) effort, able to speak in complete (unknown) (no (unknown) (unknown) Encouraged to call (units (unknown) date) DME for options. May unknown) need to try oral device. He does not (unknown) (no (unknown) (unknown) [place] Score: 18 (units (unknown) date) unknown) (unknown) (no (unknown) (unknown) [place] Sleepiness (units (unknown) date) Scale unknown) (unknown) (no (unknown) (unknown) Exacerbating/Allevia (uni ts (unknown) date) ting Factors unknown) (unknown) (no (unknown) (unknown) Exam Narrative (units (unknown) date) unknown) (unknown) (no (unknown) (unknown) Exam Narrative: (units (unknown) date) unknown) (unknown) (no (unknown) (unknown) Exam (units (unkno wn) date) unknown) (unknown) (no (unknown) (unknown) Eyes (units (unkno wn) date) unknown) (unknown) (no (unknown) (unknown) General: (units (unkno wn) date) cooperative, unknown) comfortable and no acute distress (unknown) (no (unknown) (unknown) General: patient (units (unknown) date) alert, patient awake unknown) and patient oriented x3 (unknown) (no (unknown) (unknown) HENMT (units (unkno wn) date) unknown) (unknown) (no (unknown) (unknown) HPI Sleep Follow Up (unit s (unknown) date) unknown) (unknown) (no (unknown) (unknown) HPI (units (unkno wn) date) unknown) (unknown) (no (unknown) (unknown) HYDROCHLOROTHIAZIDE (unit s (unknown) date) PO 08/15/21 [History unknown) Confirmed 11/06/22] (unknown) (no (unknown) (unknown) Has been working (units (unknown) date) with [employer] and does unknown) not feel it is working out. Does not want (unknown) (no (unknown) (unknown) He does not wish to (unit s (unknown) date) do this yet. unknown) (unknown) (no (unknown) (unknown) Head: normal to (units (unknown) date) inspection unknown) (unknown) (no (unknown) (unknown) Height 6 ft (units (un known) date) unknown) (unknown) (no (unknown) (unknown) Intake (units (unkno wn) date) unknown) (unknown) (no (unknown) (unknown) Loc: SLEEP (units (unk nown) date) unknown) (unknown) (no (unknown) (unknown) Lying down in the (units (unknown) date) afternoon: 3 = High unknown) (unknown) (no (unknown) (unknown) Medical History (units (unknown) date) (Updated 09/10/22 @ unknown) 09:05 by BRITTANY Maynard) (unknown) (no (unknown) (unknown) Medications (units (un known) date) unknown) (unknown) (no (unknown) (unknown) Moderate LORI. (units ( unknown) date) Patient reports a unknown) history of snoring and a disturbed sleep (unknown) (no (unknown) (unknown) Moderate chance of (units (unknown) date) dozing or sleeping, 3 unknown) = High chance of dozing or sleeping (unknown) (no (unknown) (unknown) Mood: congruent mood (uni ts (unknown) date) unknown) (unknown) (no (unknown) (unknown) NPSG consistent with (uni ts (unknown) date) moderate LORI (AHI unknown) 15.2) with desaturation events down to (unknown) (no (unknown) (unknown) Neck (units (unkno wn) date) unknown) (unknown) (no (unknown) (unknown) Neck: normal visual (unit s (unknown) date) inspection unknown) (unknown) (no (unknown) (unknown) Neuro (units (unkno wn) date) unknown) (unknown) (no (unknown) (unknown) Obstructive sleep (units (unknown) date) apnea of adult unknown) (unknown) (no (unknown) (unknown) PAP treatment (units ( unknown) date) unknown) (unknown) (no (unknown) (unknown) PFSH (units (unkno wn) date) unknown) (unknown) (no (unknown) (unknown) Pain scale (1-10): 0 (uni ts (unknown) date) unknown) (unknown) (no (unknown) (unknown) Pain (units (unkno wn) date) unknown) (unknown) (no (unknown) (unknown) Patient instructed (units (unknown) date) to use scheduled naps unknown) as needed for drowsiness safety (unknown) (no (unknown) (unknown) Patient prescribed (units (unknown) date) continued CPAP unknown) therapy at 5-15 cwp. No changes made today. (unknown) (no (unknown) (unknown) Patient reports a (units (unknown) date) history of snoring unknown) and a disturbed sleep pattern. There is (unknown) (no (unknown) (unknown) Patient reports (units (unknown) date) alcohol Sleep Alcohol unknown) Branch: never, reports caffeine Sleep (unknown) (no (unknown) (unknown) Patient reports (units (unknown) date) difficulty falling unknown) asleep is denied, difficulty staying asleep (unknown) (no (unknown) (unknown) Patient was (units (un known) date) encouraged to unknown) maintain PAP usage at a minimum of 4 hours a night, (unknown) (no (unknown) (unknown) Patient was (units (un known) date) instructed to avoid unknown) driving or operating heavy machinery when (unknown) (no (unknown) (unknown) Patient: (units (unkno wn) date) Jerzy Reeder MR#: unknown) M000 (unknown) (no (unknown) (unknown) Pertinent (units (unkn own) date) Positives/Negatives unknown) (unknown) (no (unknown) (unknown) Plan (units (unkno wn) date) unknown) (unknown) (no (unknown) (unknown) Position Sitting (units (unknown) date) unknown) (unknown) (no (unknown) (unknown) Prescription written (uni ts (unknown) date) for renewal of PAP unknown) supplies (unknown) (no (unknown) (unknown) Psych (units (unkno wn) date) unknown) (unknown) (no (unknown) (unknown) Pulse 99 H (units (unk nown) date) unknown) (unknown) (no (unknown) (unknown) Pulse Source Monitor (uni ts (unknown) date) unknown) (unknown) (no (unknown) (unknown) Questionnaires (units (unknown) date) unknown) (unknown) (no (unknown) (unknown) Reason For Visit (units (unknown) date) unknown) (unknown) (no (unknown) (unknown) Resp (units (unkno wn) date) unknown) (unknown) (no (unknown) (unknown) Respiration 14 (units (unknown) date) unknown) (unknown) (no (unknown) (unknown) SWELLING (units (unkno wn) date) unknown) (unknown) (no (unknown) (unknown) Sclera: sclerae (units (unknown) date) normal unknown) (unknown) (no (unknown) (unknown) Signed By: (units (unk nown) date) unknown) (unknown) (no (unknown) (unknown) Sitting and Reading: (uni ts (unknown) date) 3 = High unknown) (unknown) (no (unknown) (unknown) Sitting and talking (unit s (unknown) date) to someone: 1 = unknown) Slight (unknown) (no (unknown) (unknown) Sitting inactive in (unit s (unknown) date) a public place: 2 = unknown) Moderate (unknown) (no (unknown) (unknown) Sitting quietly (units (unknown) date) after lunch (no unknown) alcohol): 2 = Moderate (unknown) (no (unknown) (unknown) Sleep Schedule (units (unknown) date) Branch: consistent, unknown) daytime somnolence rare, snoring not (unknown) (no (unknown) (unknown) Sleep Visit (units (un known) date) unknown) (unknown) (no (unknown) (unknown) [facility] unknown) (unknown) (no (unknown) (unknown) Smoking Status: (units (unknown) date) Never smoker unknown) (unknown) (no (unknown) (unknown) Speech and Movement: (uni ts (unknown) date) speech and movement unknown) normal (unknown) (no (unknown) (unknown) Speech: speech (units (unknown) date) normal unknown) (unknown) (no (unknown) (unknown) Status: Acute (units ( unknown) date) unknown) (unknown) (no (unknown) (unknown) Stopped for a few (units (unknown) date) minutes in traffic: 1 unknown) = Slight (unknown) (no (unknown) (unknown) Sulfa (Sulfonamide (units (unknown) date) Antibiotics) Allergy unknown) (Verified 11/06/22 15:54) (unknown) (no (unknown) (unknown) Symptoms (units (unkno wn) date) unknown) (unknown) (no (unknown) (unknown) Temp 97.7 F (units (un known) date) unknown) (unknown) (no (unknown) (unknown) Temp Source Temporal (uni ts (unknown) date) Artery Scan unknown) (unknown) (no (unknown) (unknown) The patient reports (unit s (unknown) date) symptoms of excessive unknown) daytime sleepiness as evidenced by (unknown) (no (unknown) (unknown) This note may have (units (unknown) date) been all or partially unknown) generated using voice recognition (unknown) (no (unknown) (unknown) Tobacco + Substance (unit s (unknown) date) Use unknown) (unknown) (no (unknown) (unknown) Tobacco Status (units (unknown) date) unknown) (unknown) (no (unknown) (unknown) Treatment Effects: (units (unknown) date) Pap Treatment unknown) Response/Side Effects: nonadherent to current (unknown) (no (unknown) (unknown) Treatment (units (unkn own) date) Response/Side Affects unknown) (unknown) (no (unknown) (unknown) Unfortunately our (units (unknown) date) sleep center is unknown) closing. Patient understands they should (unknown) (no (unknown) (unknown) Usage: % with % (units (unknown) date) greater than 4 hours. unknown) Leak . 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 unknown) (unknown) (no (unknown) (unknown) Visit type (FU): (units (unknown) date) follow up of LORI unknown) therapy Follow up evaluation of LORI therapy: (unknown) (no (unknown) (unknown) Vitals (units (unkno wn) date) unknown) (unknown) (no (unknown) (unknown) Watching TV: 3 = (units (unknown) date) High unknown) (unknown) (no (unknown) (unknown) Weight 239 lb (units ( unknown) date) unknown) (unknown) (no (unknown) (unknown) [History Confirmed (units (unknown) date) 11/06/22] unknown) (unknown) (no (unknown) (unknown) a little, normal (units (unknown) date) bedtime ([id number]), unknown) normal wake time (0800), sleep schedule (unknown) (no (unknown) (unknown) also a history of (units (unknown) date) hypertension and unknown) depression with a Mallampati score of IV. (unknown) (no (unknown) (unknown) appreciated, apnea (units (unknown) date) not witnessed, unknown) choking or gasping Choking or Gasping Branch: (unknown) (no (unknown) (unknown) burn symptoms at (units (unknown) date) night, reports unknown) nocturia (once per night), reports pain (back (unknown) (no (unknown) (unknown) but increased (units ( unknown) date) benefit from more unknown) usage was also explained. (unknown) (no (unknown) (unknown) conditions or can be (uni ts (unknown) date) a primary problem. unknown) Risks and symptoms of drowsiness were (unknown) (no (unknown) (unknown) congestion at night, (uni ts (unknown) date) reports dry mouth unknown) (sometimes), denies sore throat in the (unknown) (no (unknown) (unknown) daytime sleeping and (uni ts (unknown) date) an initially elevated unknown) [place] Sleepiness Scale score of (unknown) (no (unknown) (unknown) denied, epworth (units (unknown) date) sleep scale score unknown) (09/15) and bruxism Bruxism Branch: denied (unknown) (no (unknown) (unknown) diffuse the exhaust (unit s (unknown) date) a different way. He unknown) will call. May need to try oral device. (unknown) (no (unknown) (unknown) down to 86%. CPAP (units (unknown) date) initiated. unknown) (unknown) (no (unknown) (unknown) drowsy. (units (unkno wn) date) unknown) (unknown) (no (unknown) (unknown) durng the day, (units (unknown) date) reports depression unknown) (managed) and reports anxiety (unknown) (no (unknown) (unknown) flow. He is clearly (unit s (unknown) date) benefitting from unknown) therapy and willing to continue with CPAP. (unknown) (no (unknown) (unknown) for him. Would like (unit s (unknown) date) to know if there was unknown) a way to redirect the exhaust on the (unknown) (no (unknown) (unknown) have occurred. If (units (unknown) date) there are any unknown) questions, please contact the Medical Records (unknown) (no (unknown) (unknown) his eye issues to (units (unknown) date) worsen as there is no unknown) further ophthalmological intervention (unknown) (no (unknown) (unknown) implications of (units (unknown) date) findings discussed. unknown) Compliance is excellent with optimal AHI (unknown) (no (unknown) (unknown) intermittent, early (unit s (unknown) date) morning awakening unknown) denied, spending time in bed not sleeping (unknown) (no (unknown) (unknown) lifitegrast 5 % eye (unit s (unknown) date) drops in a unknown) dropperette (Xiidra) drp EYE-BOTH 08/15/21 (unknown) (no (unknown) (unknown) mask. He was (units (u nknown) date) encouraged to go back unknown) [place] [facility] [place] that can (unknown) (no (unknown) (unknown) may occur. (units (unk nown) date) Occasional wrong-word unknown) or 'sound-alike' substitutions may have (unknown) (no (unknown) (unknown) morning, denies (units (unknown) date) nocturnal cough, unknown) denies nocturnal palpitations, denies heart (unknown) (no (unknown) (unknown) not able to (units (un known) date) tolerate. unknown) (unknown) (no (unknown) (unknown) occurred due to the (unit s (unknown) date) inherent limitations unknown) of voice recognition software. Please (unknown) (no (unknown) (unknown) on PAP well, sleep (units (unknown) date) quality well and unknown) daytime sleepiness Daytime Sleepiness Branch (unknown) (no (unknown) (unknown) pain), denies (units ( unknown) date) dizziness in the unknown) morning, denies trouble consentrating/focusin g (unknown) (no (unknown) (unknown) pattern. NPSG (units ( unknown) date) consistent with unknown) moderate LORI (AHI 15.2) with desaturation events (unknown) (no (unknown) (unknown) possible for (units (u nknown) date) continued care. unknown) (unknown) (no (unknown) (unknown) read the note (units ( unknown) date) carefully and unknown) recognize, using context, where these substitutions (unknown) (no (unknown) (unknown) reassessed once mask (uni ts (unknown) date) is optimized. unknown) (unknown) (no (unknown) (unknown) reports night (units ( unknown) date) sweats, reports unknown) morning headache (sometimes), denies nasal (unknown) (no (unknown) (unknown) reviewed. This has (units (unknown) date) improved on CPAP with unknown) current score of 09/15. This will be (unknown) (no (unknown) (unknown) schedule an (units (unk nown) date) appointment to unknown) establish care with a new sleep specialist as soon as (unknown) (no (unknown) (unknown) sentences and no (units (unknown) date) audible wheezes unknown) (unknown) (no (unknown) (unknown) software. 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 (unit s (unknown) date) Mask exhaust blows unknown) air to his eyes and this wakes him up. (unknown) (no (unknown) (unknown) wellbutrin PO DAILY (unit s (unknown) date) 09/10/22 [History unknown) Confirmed 11/06/22] (unknown) (no (unknown) (unknown) wish to do this yet (unit s (unknown) date) and agrees to call unknown) DME. Result panel 13 (unknown) (no (unknown) (unknown) (no value) (units (unk nown) date) unknown) (unknown) (no (unknown) (unknown) (1) Obstructive (units (unknown) date) sleep apnea of adult: unknown) (unknown) (no (unknown) (unknown) (2) Excessive (units ( unknown) date) daytime sleepiness: unknown) (unknown) (no (unknown) (unknown) 0 = Would never doze (uni ts (unknown) date) or sleep, 1 = Slight unknown) chance of dozing or sleeping, 2 = (unknown) (no (unknown) (unknown) 11/06/22 (units (unkno wn) date) unknown) (unknown) (no (unknown) (unknown) . This can be (units (unknown) date) seen secondary to unknown) sleep apnea, insomnia, depression, medical (unknown) (no (unknown) (unknown) 2: better (units (unkn own) date) unknown) (unknown) (no (unknown) (unknown) [id number] (units (unkno wn) date) unknown) (unknown) (no (unknown) (unknown) 86%. CPAP initiated. 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, unknown) surgical intervention was completed but he (unknown) (no (unknown) (unknown) Appearance: grossly (unit s (unknown) date) normal unknown) (unknown) (no (unknown) (unknown) Assessment + Plan (units (unknown) date) unknown) (unknown) (no (unknown) (unknown) Assessment and Plan: (uni ts (unknown) date) unknown) (unknown) (no (unknown) (unknown) Attending Dr: Paradise (unit s (unknown) date) Layla SOTO unknown) (unknown) (no (unknown) (unknown) Attitude: (units (unkn own) date) cooperative unknown) (unknown) (no (unknown) (unknown) Auto CPAP set (units ( unknown) date) pressures: 5-15 CWP unknown) (unknown) (no (unknown) (unknown) Being a passenger in (uni ts (unknown) date) a motor vehicle for unknown) an hour or so: 3 = High (unknown) (no (unknown) (unknown) CPAP (5-15 cwp) (units (unknown) date) unknown) (unknown) (no (unknown) (unknown) Caffeine Branch: no (unit s (unknown) date) and denies sleeping unknown) pills (unknown) (no (unknown) (unknown) Chief Complaint: (units (unknown) date) Follow up CPAP unknown) therapy for LORI (unknown) (no (unknown) (unknown) Clinical Course (units (unknown) date) unknown) (unknown) (no (unknown) (unknown) Cognition: normal (units (unknown) date) cognition unknown) (unknown) (no (unknown) (unknown) Condition is Onset: (unit s (unknown) date) Chronic and ongoing unknown) condition (unknown) (no (unknown) (unknown) Conjunctivae: (units ( unknown) date) conjunctivae normal unknown) (unknown) (no (unknown) (unknown) Const (units (unkno wn) date) unknown) (unknown) (no (unknown) (unknown) Currently supposed (units (unknown) date) to be using CPAP 5-15 unknown) cwp. Compliance data reviewed, (unknown) (no (unknown) (unknown) Currently using CPAP (uni ts (unknown) date) 5-15 cwp. Not using unknown) his device. Tried oral appliance but (unknown) (no (unknown) (unknown) DME: [employer] (units (un known) date) unknown) (unknown) (no (unknown) (unknown) : 1980 (units (unknown) date) Acct:[id number] unknown) (unknown) (no (unknown) (unknown) Dept at (units (unkno wn) date) . unknown) (unknown) (no (unknown) (unknown) Details: (units (unkno wn) date) unknown) (unknown) (no (unknown) (unknown) Device data last 90 (unit s (unknown) date) days: unknown) (unknown) (no (unknown) (unknown) Device set up: (units (unknown) date) 07/14/2022 unknown) (unknown) (no (unknown) (unknown) Documented By: (units (unknown) date) Paradise Rich unknown) 11/06/22 1331 (unknown) (no (unknown) (unknown) Draft (units (unkno wn) date) unknown) (unknown) (no (unknown) (unknown) Drowsy driving (units (unknown) date) handout made unknown) available. (unknown) (no (unknown) (unknown) Ears: hearing (units ( unknown) date) grossly normal unknown) bilaterally (unknown) (no (unknown) (unknown) Effort + Inspection: (uni ts (unknown) date) normal respiratory unknown) effort, able to speak in complete (unknown) (no (unknown) (unknown) Encouraged to call (units (unknown) date) DME for options. May unknown) need to try oral device. He does not (unknown) (no (unknown) (unknown) [place] Score: 18 (units (unknown) date) unknown) (unknown) (no (unknown) (unknown) [place] Sleepiness (units (unknown) date) Scale unknown) (unknown) (no (unknown) (unknown) Exacerbating/Allevia (uni ts (unknown) date) ting Factors unknown) (unknown) (no (unknown) (unknown) Exam Narrative (units (unknown) date) unknown) (unknown) (no (unknown) (unknown) Exam Narrative: (units (unknown) date) unknown) (unknown) (no (unknown) (unknown) Exam (units (unkno wn) date) unknown) (unknown) (no (unknown) (unknown) Eyes (units (unkno wn) date) unknown) (unknown) (no (unknown) (unknown) General: (units (unkno wn) date) cooperative, unknown) comfortable and no acute distress (unknown) (no (unknown) (unknown) General: patient (units (unknown) date) alert, patient awake unknown) and patient oriented x3 (unknown) (no (unknown) (unknown) HENMT (units (unkno wn) date) unknown) (unknown) (no (unknown) (unknown) HPI Sleep Follow Up (unit s (unknown) date) unknown) (unknown) (no (unknown) (unknown) HPI (units (unkno wn) date) unknown) (unknown) (no (unknown) (unknown) HYDROCHLOROTHIAZIDE (unit s (unknown) date) PO 08/15/21 [History unknown) Confirmed 11/06/22] (unknown) (no (unknown) (unknown) Has been working (units (unknown) date) with [employer] and does unknown) not feel it is working out. Does not want (unknown) (no (unknown) (unknown) He does not wish to (unit s (unknown) date) do this yet. unknown) (unknown) (no (unknown) (unknown) Head: normal to (units (unknown) date) inspection unknown) (unknown) (no (unknown) (unknown) Intake (units (unkno wn) date) unknown) (unknown) (no (unknown) (unknown) Loc: SLEEP (units (unk nown) date) unknown) (unknown) (no (unknown) (unknown) Lying down in the (units (unknown) date) afternoon: 3 = High unknown) (unknown) (no (unknown) (unknown) Medical History (units (unknown) date) (Updated 09/10/22 @ unknown) 09:05 by BRITTANY Maynard) (unknown) (no (unknown) (unknown) Medications (units (un known) date) unknown) (unknown) (no (unknown) (unknown) Moderate LORI. (units ( unknown) date) Patient reports a unknown) history of snoring and a disturbed sleep (unknown) (no (unknown) (unknown) Moderate chance of (units (unknown) date) dozing or sleeping, 3 unknown) = High chance of dozing or sleeping (unknown) (no (unknown) (unknown) Mood: congruent mood (uni ts (unknown) date) unknown) (unknown) (no (unknown) (unknown) NPSG consistent with (uni ts (unknown) date) moderate LORI (AHI unknown) 15.2) with desaturation events down to (unknown) (no (unknown) (unknown) Neck (units (unkno wn) date) unknown) (unknown) (no (unknown) (unknown) Neck: normal visual (unit s (unknown) date) inspection unknown) (unknown) (no (unknown) (unknown) Neuro (units (unkno wn) date) unknown) (unknown) (no (unknown) (unknown) Obstructive sleep (units (unknown) date) apnea of adult unknown) (unknown) (no (unknown) (unknown) PAP treatment (units ( unknown) date) unknown) (unknown) (no (unknown) (unknown) PFSH (units (unkno wn) date) unknown) (unknown) (no (unknown) (unknown) Pain scale (1-10): 0 (uni ts (unknown) date) unknown) (unknown) (no (unknown) (unknown) Pain (units (unkno wn) date) unknown) (unknown) (no (unknown) (unknown) Patient instructed (units (unknown) date) to use scheduled naps unknown) as needed for drowsiness safety (unknown) (no (unknown) (unknown) Patient prescribed (units (unknown) date) continued CPAP unknown) therapy at 5-15 cwp. No changes made today. (unknown) (no (unknown) (unknown) Patient reports a (units (unknown) date) history of snoring unknown) and a disturbed sleep pattern. There is (unknown) (no (unknown) (unknown) Patient reports (units (unknown) date) alcohol Sleep Alcohol unknown) Branch: never, reports caffeine Sleep (unknown) (no (unknown) (unknown) Patient reports (units (unknown) date) difficulty falling unknown) asleep is denied, difficulty staying asleep (unknown) (no (unknown) (unknown) Patient was (units (un known) date) encouraged to unknown) maintain PAP usage at a minimum of 4 hours a night, (unknown) (no (unknown) (unknown) Patient was (units (un known) date) instructed to avoid unknown) driving or operating heavy machinery when (unknown) (no (unknown) (unknown) Patient: (units (unkno wn) date) Jerzy Reeder MR#: unknown) [id number] (unknown) (no (unknown) (unknown) Pertinent (units (unkn own) date) Positives/Negatives unknown) (unknown) (no (unknown) (unknown) Plan (units (unkno wn) date) unknown) (unknown) (no (unknown) (unknown) Prescription written (uni ts (unknown) date) for renewal of PAP unknown) supplies (unknown) (no (unknown) (unknown) Psych (units (unkno wn) date) unknown) (unknown) (no (unknown) (unknown) Questionnaires (units (unknown) date) unknown) (unknown) (no (unknown) (unknown) Reason For Visit (units (unknown) date) unknown) (unknown) (no (unknown) (unknown) Resp (units (unkno wn) date) unknown) (unknown) (no (unknown) (unknown) SWELLING (units (unkno wn) date) unknown) (unknown) (no (unknown) (unknown) Sclera: sclerae (units (unknown) date) normal unknown) (unknown) (no (unknown) (unknown) Signed By: (units (unk nown) date) unknown) (unknown) (no (unknown) (unknown) Sitting and Reading: (uni ts (unknown) date) 3 = High unknown) (unknown) (no (unknown) (unknown) Sitting and talking (unit s (unknown) date) to someone: 1 = unknown) Slight (unknown) (no (unknown) (unknown) Sitting inactive in (unit s (unknown) date) a public place: 2 = unknown) Moderate (unknown) (no (unknown) (unknown) Sitting quietly (units (unknown) date) after lunch (no unknown) alcohol): 2 = Moderate (unknown) (no (unknown) (unknown) Sleep Schedule (units (unknown) date) Branch: consistent, unknown) daytime somnolence rare, snoring not (unknown) (no (unknown) (unknown) Sleep Visit (units (un known) date) unknown) (unknown) (no (unknown) (unknown) [facility] unknown) (unknown) (no (unknown) (unknown) Smoking Status: (units (unknown) date) Never smoker unknown) (unknown) (no (unknown) (unknown) Speech and Movement: (uni ts (unknown) date) speech and movement unknown) normal (unknown) (no (unknown) (unknown) Speech: speech (units (unknown) date) normal unknown) (unknown) (no (unknown) (unknown) Status: Acute (units ( unknown) date) unknown) (unknown) (no (unknown) (unknown) Stopped for a few (units (unknown) date) minutes in traffic: 1 unknown) = Slight (unknown) (no (unknown) (unknown) Sulfa (Sulfonamide (units (unknown) date) Antibiotics) Allergy unknown) (Verified 11/06/22 15:54) (unknown) (no (unknown) (unknown) Symptoms (units (unkno wn) date) unknown) (unknown) (no (unknown) (unknown) The patient reports (unit s (unknown) date) symptoms of excessive unknown) daytime sleepiness as evidenced by (unknown) (no (unknown) (unknown) This note may have (units (unknown) date) been all or partially unknown) generated using voice recognition (unknown) (no (unknown) (unknown) Tobacco + Substance (unit s (unknown) date) Use unknown) (unknown) (no (unknown) (unknown) Tobacco Status (units (unknown) date) unknown) (unknown) (no (unknown) (unknown) Treatment Effects: (units (unknown) date) Pap Treatment unknown) Response/Side Effects: nonadherent to current (unknown) (no (unknown) (unknown) Treatment (units (unkn own) date) Response/Side Affects unknown) (unknown) (no (unknown) (unknown) Unfortunately our (units (unknown) date) sleep center is unknown) closing. Patient understands they should (unknown) (no (unknown) (unknown) Usage: % with % (units (unknown) date) greater than 4 hours. unknown) Leak . 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 unknown) (unknown) (no (unknown) (unknown) Visit type (FU): (units (unknown) date) follow up of LROI unknown) therapy Follow up evaluation of LORI therapy: (unknown) (no (unknown) (unknown) Watching TV: 3 = (units (unknown) date) High unknown) (unknown) (no (unknown) (unknown) [History Confirmed (units (unknown) date) 11/06/22] unknown) (unknown) (no (unknown) (unknown) a little, normal (units (unknown) date) bedtime ([id number]), unknown) normal wake time (0800), sleep schedule (unknown) (no (unknown) (unknown) also a history of (units (unknown) date) hypertension and unknown) depression with a Mallampati score of IV. (unknown) (no (unknown) (unknown) appreciated, apnea (units (unknown) date) not witnessed, unknown) choking or gasping Choking or Gasping Branch: (unknown) (no (unknown) (unknown) burn symptoms at (units (unknown) date) night, reports unknown) nocturia (once per night), reports pain (back (unknown) (no (unknown) (unknown) but increased (units ( unknown) date) benefit from more unknown) usage was also explained. (unknown) (no (unknown) (unknown) conditions or can be (uni ts (unknown) date) a primary problem. unknown) Risks and symptoms of drowsiness were (unknown) (no (unknown) (unknown) congestion at night, (uni ts (unknown) date) reports dry mouth unknown) (sometimes), denies sore throat in the (unknown) (no (unknown) (unknown) daytime sleeping and (uni ts (unknown) date) an initially elevated unknown) [place] Sleepiness Scale score of (unknown) (no (unknown) (unknown) denied, epworth (units (unknown) date) sleep scale score unknown) (09/15) and bruxism Bruxism Branch: denied (unknown) (no (unknown) (unknown) diffuse the exhaust (unit s (unknown) date) a different way. He unknown) will call. May need to try oral device. (unknown) (no (unknown) (unknown) down to 86%. CPAP (units (unknown) date) initiated. unknown) (unknown) (no (unknown) (unknown) drowsy. (units (unkno wn) date) unknown) (unknown) (no (unknown) (unknown) durng the day, (units (unknown) date) reports depression unknown) (managed) and reports anxiety (unknown) (no (unknown) (unknown) flow. He is clearly (unit s (unknown) date) benefitting from unknown) therapy and willing to continue with CPAP. (unknown) (no (unknown) (unknown) for him. Would like (unit s (unknown) date) to know if there was unknown) a way to redirect the exhaust on the (unknown) (no (unknown) (unknown) have occurred. If (units (unknown) date) there are any unknown) questions, please contact the Medical Records (unknown) (no (unknown) (unknown) his eye issues to (units (unknown) date) worsen as there is no unknown) further ophthalmological intervention (unknown) (no (unknown) (unknown) implications of (units (unknown) date) findings discussed. unknown) Compliance is excellent with optimal AHI (unknown) (no (unknown) (unknown) intermittent, early (unit s (unknown) date) morning awakening unknown) denied, spending time in bed not sleeping (unknown) (no (unknown) (unknown) lifitegrast 5 % eye (unit s (unknown) date) drops in a unknown) dropperette (Xiidra) drp EYE-BOTH 08/15/21 (unknown) (no (unknown) (unknown) mask. He was (units (u nknown) date) encouraged to go back unknown) to the DME for a clip on device that can (unknown) (no (unknown) (unknown) may occur. (units (unk nown) date) Occasional wrong-word unknown) or 'sound-alike' substitutions may have (unknown) (no (unknown) (unknown) morning, denies (units (unknown) date) nocturnal cough, unknown) denies nocturnal palpitations, denies heart (unknown) (no (unknown) (unknown) not able to (units (un known) date) tolerate. unknown) (unknown) (no (unknown) (unknown) occurred due to the (unit s (unknown) date) inherent limitations unknown) of voice recognition software. Please (unknown) (no (unknown) (unknown) on PAP well, sleep (units (unknown) date) quality well and unknown) daytime sleepiness Daytime Sleepiness Branch (unknown) (no (unknown) (unknown) pain), denies (units ( unknown) date) dizziness in the unknown) morning, denies trouble consentrating/focusin g (unknown) (no (unknown) (unknown) pap tap...needs dme (unit s (unknown) date) who will do it unknown) (unknown) (no (unknown) (unknown) pattern. NPSG (units ( unknown) date) consistent with unknown) moderate LORI (AHI 15.2) with desaturation events (unknown) (no (unknown) (unknown) possible for (units (u nknown) date) continued care. unknown) (unknown) (no (unknown) (unknown) read the note (units ( unknown) date) carefully and unknown) recognize, using context, where these substitutions (unknown) (no (unknown) (unknown) reassessed once mask (uni ts (unknown) date) is optimized. unknown) (unknown) (no (unknown) (unknown) reports night (units ( unknown) date) sweats, reports unknown) morning headache (sometimes), denies nasal (unknown) (no (unknown) (unknown) reviewed. This has (units (unknown) date) improved on CPAP with unknown) current score of 09/15. This will be (unknown) (no (unknown) (unknown) schedule an (units (unk nown) date) appointment to unknown) establish care with a new sleep specialist as soon as (unknown) (no (unknown) (unknown) sentences and no (units (unknown) date) audible wheezes unknown) (unknown) (no (unknown) (unknown) software. 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 (unit s (unknown) date) Mask exhaust blows unknown) air to his eyes and this wakes him up. (unknown) (no (unknown) (unknown) wellbutrin PO DAILY (unit s (unknown) date) 09/10/22 [History unknown) Confirmed 11/06/22] (unknown) (no (unknown) (unknown) wish to do this yet (unit s (unknown) date) and agrees to call unknown) DME. Result panel 14 (unknown) (no (unknown) (unknown) (no value) (units (unk nown) date) unknown) (unknown) (no (unknown) (unknown) (1) Obstructive (units (unknown) date) sleep apnea of adult: unknown) (unknown) (no (unknown) (unknown) (2) Excessive (units ( unknown) date) daytime sleepiness: unknown) (unknown) (no (unknown) (unknown) 0 = Would never doze (uni ts (unknown) date) or sleep, 1 = Slight unknown) chance of dozing or sleeping, 2 = (unknown) (no (unknown) (unknown) 11/06/22 (units (unkno wn) date) unknown) (unknown) (no (unknown) (unknown) . This can be (units (unknown) date) seen secondary to unknown) sleep apnea, insomnia, depression, medical (unknown) (no (unknown) (unknown) 2: better (units (unkn own) date) unknown) (unknown) (no (unknown) (unknown) [id number] (units (unkno wn) date) unknown) (unknown) (no (unknown) (unknown) 86%. CPAP initiated. 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, unknown) surgical intervention was completed but he (unknown) (no (unknown) (unknown) Appearance: grossly (unit s (unknown) date) normal unknown) (unknown) (no (unknown) (unknown) Assessment + Plan (units (unknown) date) unknown) (unknown) (no (unknown) (unknown) Assessment and Plan: (uni ts (unknown) date) unknown) (unknown) (no (unknown) (unknown) Attending Dr: Paradise (unit s (unknown) date) Layla SOTO unknown) (unknown) (no (unknown) (unknown) Attitude: (units (unkn own) date) cooperative unknown) (unknown) (no (unknown) (unknown) Auto CPAP set (units ( unknown) date) pressures: 5-15 CWP unknown) (unknown) (no (unknown) (unknown) Being a passenger in (uni ts (unknown) date) a motor vehicle for unknown) an hour or so: 3 = High (unknown) (no (unknown) (unknown) CPAP (5-15 cwp) (units (unknown) date) unknown) (unknown) (no (unknown) (unknown) Caffeine Branch: no (unit s (unknown) date) and denies sleeping unknown) pills (unknown) (no (unknown) (unknown) Chief Complaint: (units (unknown) date) Follow up CPAP unknown) therapy for LORI (unknown) (no (unknown) (unknown) Clinical Course (units (unknown) date) unknown) (unknown) (no (unknown) (unknown) Cognition: normal (units (unknown) date) cognition unknown) (unknown) (no (unknown) (unknown) Condition is Onset: (unit s (unknown) date) Chronic and ongoing unknown) condition (unknown) (no (unknown) (unknown) Conjunctivae: (units ( unknown) date) conjunctivae normal unknown) (unknown) (no (unknown) (unknown) Const (units (unkno wn) date) unknown) (unknown) (no (unknown) (unknown) Currently CPAP is (units (unknown) date) set 5-15 cwp. Not unknown) using his device. Tried oral appliance but (unknown) (no (unknown) (unknown) Currently supposed (units (unknown) date) to be using CPAP 5-15 unknown) cwp. Compliance data reviewed, (unknown) (no (unknown) (unknown) DME: [employer] (units (un known) date) unknown) (unknown) (no (unknown) (unknown) : 1980 (units (unknown) date) Acct:[id number] unknown) (unknown) (no (unknown) (unknown) Dept at (units (unkno wn) date) . unknown) (unknown) (no (unknown) (unknown) Details: (units (unkno wn) date) unknown) (unknown) (no (unknown) (unknown) Device data last 90 (unit s (unknown) date) days: unknown) (unknown) (no (unknown) (unknown) Device set up: (units (unknown) date) 07/14/2022 unknown) (unknown) (no (unknown) (unknown) Documented By: (units (unknown) date) Paradise Rich unknown) 11/06/22 1331 (unknown) (no (unknown) (unknown) Draft (units (unkno wn) date) unknown) (unknown) (no (unknown) (unknown) Drowsy driving (units (unknown) date) handout made unknown) available. (unknown) (no (unknown) (unknown) Ears: hearing (units ( unknown) date) grossly normal unknown) bilaterally (unknown) (no (unknown) (unknown) Effort + Inspection: (uni ts (unknown) date) normal respiratory unknown) effort, able to speak in complete (unknown) (no (unknown) (unknown) Encouraged to call (units (unknown) date) DME for options. May unknown) need to try oral device. He does not (unknown) (no (unknown) (unknown) [place] Score: 18 (units (unknown) date) unknown) (unknown) (no (unknown) (unknown) [place] Sleepiness (units (unknown) date) Scale unknown) (unknown) (no (unknown) (unknown) Exacerbating/Allevia (uni ts (unknown) date) ting Factors unknown) (unknown) (no (unknown) (unknown) Exam Narrative (units (unknown) date) unknown) (unknown) (no (unknown) (unknown) Exam Narrative: (units (unknown) date) unknown) (unknown) (no (unknown) (unknown) Exam (units (unkno wn) date) unknown) (unknown) (no (unknown) (unknown) Eyes (units (unkno wn) date) unknown) (unknown) (no (unknown) (unknown) General: (units (unkno wn) date) cooperative, unknown) comfortable and no acute distress (unknown) (no (unknown) (unknown) General: patient (units (unknown) date) alert, patient awake unknown) and patient oriented x3 (unknown) (no (unknown) (unknown) Goggles, Tap Pap (units (unknown) date) unknown) (unknown) (no (unknown) (unknown) HENMT (units (unkno wn) date) unknown) (unknown) (no (unknown) (unknown) HPI Sleep Follow Up (unit s (unknown) date) unknown) (unknown) (no (unknown) (unknown) HPI (units (unkno wn) date) unknown) (unknown) (no (unknown) (unknown) HYDROCHLOROTHIAZIDE (unit s (unknown) date) PO 08/15/21 [History unknown) Confirmed 11/06/22] (unknown) (no (unknown) (unknown) Has been working (units (unknown) date) with [employer] and does unknown) not feel it is working out. Does not want (unknown) (no (unknown) (unknown) He does not wish to (unit s (unknown) date) do this yet. unknown) (unknown) (no (unknown) (unknown) Head: normal to (units (unknown) date) inspection unknown) (unknown) (no (unknown) (unknown) Intake (units (unkno wn) date) unknown) (unknown) (no (unknown) (unknown) Loc: SLEEP (units (unk nown) date) unknown) (unknown) (no (unknown) (unknown) Lying down in the (units (unknown) date) afternoon: 3 = High unknown) (unknown) (no (unknown) (unknown) Medical History (units (unknown) date) (Updated 09/10/22 @ unknown) 09:05 by BRITTANY Maynard) (unknown) (no (unknown) (unknown) Medications (units (un known) date) unknown) (unknown) (no (unknown) (unknown) Moderate LORI. (units ( unknown) date) Patient reports a unknown) history of snoring and a disturbed sleep (unknown) (no (unknown) (unknown) Moderate chance of (units (unknown) date) dozing or sleeping, 3 unknown) = High chance of dozing or sleeping (unknown) (no (unknown) (unknown) Mood: congruent mood (uni ts (unknown) date) unknown) (unknown) (no (unknown) (unknown) NPSG consistent with (uni ts (unknown) date) moderate LORI (AHI unknown) 15.2) with desaturation events down to (unknown) (no (unknown) (unknown) Neck (units (unkno wn) date) unknown) (unknown) (no (unknown) (unknown) Neck: normal visual (unit s (unknown) date) inspection unknown) (unknown) (no (unknown) (unknown) Neuro (units (unkno wn) date) unknown) (unknown) (no (unknown) (unknown) Obstructive sleep (units (unknown) date) apnea of adult unknown) (unknown) (no (unknown) (unknown) PAP treatment (units ( unknown) date) unknown) (unknown) (no (unknown) (unknown) PFSH (units (unkno wn) date) unknown) (unknown) (no (unknown) (unknown) Pain scale (1-10): 0 (uni ts (unknown) date) unknown) (unknown) (no (unknown) (unknown) Pain (units (unkno wn) date) unknown) (unknown) (no (unknown) (unknown) Patient instructed (units (unknown) date) to use scheduled naps unknown) as needed for drowsiness safety (unknown) (no (unknown) (unknown) Patient prescribed (units (unknown) date) continued CPAP unknown) therapy at 5-15 cwp. No changes made today. (unknown) (no (unknown) (unknown) Patient reports a (units (unknown) date) history of snoring unknown) and a disturbed sleep pattern. There is (unknown) (no (unknown) (unknown) Patient reports (units (unknown) date) alcohol Sleep Alcohol unknown) Branch: never, reports caffeine Sleep (unknown) (no (unknown) (unknown) Patient reports (units (unknown) date) difficulty falling unknown) asleep is denied, difficulty staying asleep (unknown) (no (unknown) (unknown) Patient was (units (un known) date) encouraged to unknown) maintain PAP usage at a minimum of 4 hours a night, (unknown) (no (unknown) (unknown) Patient was (units (un known) date) instructed to avoid unknown) driving or operating heavy machinery when (unknown) (no (unknown) (unknown) Patient: (units (unkno wn) date) Jerzy Reeder MR#: unknown) [id number] (unknown) (no (unknown) (unknown) Pertinent (units (unkn own) date) Positives/Negatives unknown) (unknown) (no (unknown) (unknown) Plan (units (unkno wn) date) unknown) (unknown) (no (unknown) (unknown) Prescription written (uni ts (unknown) date) for renewal of PAP unknown) supplies (unknown) (no (unknown) (unknown) Psych (units (unkno wn) date) unknown) (unknown) (no (unknown) (unknown) Questionnaires (units (unknown) date) unknown) (unknown) (no (unknown) (unknown) Reason For Visit (units (unknown) date) unknown) (unknown) (no (unknown) (unknown) Resp (units (unkno wn) date) unknown) (unknown) (no (unknown) (unknown) SWELLING (units (unkno wn) date) unknown) (unknown) (no (unknown) (unknown) Sclera: sclerae (units (unknown) date) normal unknown) (unknown) (no (unknown) (unknown) Signed By: (units (unk nown) date) unknown) (unknown) (no (unknown) (unknown) Sitting and Reading: (uni ts (unknown) date) 3 = High unknown) (unknown) (no (unknown) (unknown) Sitting and talking (unit s (unknown) date) to someone: 1 = unknown) Slight (unknown) (no (unknown) (unknown) Sitting inactive in (unit s (unknown) date) a public place: 2 = unknown) Moderate (unknown) (no (unknown) (unknown) Sitting quietly (units (unknown) date) after lunch (no unknown) alcohol): 2 = Moderate (unknown) (no (unknown) (unknown) Sleep Schedule (units (unknown) date) Branch: consistent, unknown) daytime somnolence rare, snoring not (unknown) (no (unknown) (unknown) Sleep Visit (units (un known) date) unknown) (unknown) (no (unknown) (unknown) [facility] unknown) (unknown) (no (unknown) (unknown) Smoking Status: (units (unknown) date) Never smoker unknown) (unknown) (no (unknown) (unknown) Some suggestions: Tap (uni ts (unknown) date) Pap device on unknown) [employer] pap tap...needs dme who will do it. (unknown) (no (unknown) (unknown) Speech and Movement: (uni ts (unknown) date) speech and movement unknown) normal (unknown) (no (unknown) (unknown) Speech: speech (units (unknown) date) normal unknown) (unknown) (no (unknown) (unknown) Status: Acute (units ( unknown) date) unknown) (unknown) (no (unknown) (unknown) Stopped for a few (units (unknown) date) minutes in traffic: 1 unknown) = Slight (unknown) (no (unknown) (unknown) Sulfa (Sulfonamide (units (unknown) date) Antibiotics) Allergy unknown) (Verified 11/06/22 15:54) (unknown) (no (unknown) (unknown) Symptoms (units (unkno wn) date) unknown) (unknown) (no (unknown) (unknown) The patient reports (unit s (unknown) date) symptoms of excessive unknown) daytime sleepiness as evidenced by (unknown) (no (unknown) (unknown) This note may have (units (unknown) date) been all or partially unknown) generated using voice recognition (unknown) (no (unknown) (unknown) Tobacco + Substance (unit s (unknown) date) Use unknown) (unknown) (no (unknown) (unknown) Tobacco Status (units (unknown) date) unknown) (unknown) (no (unknown) (unknown) Treatment Effects: (units (unknown) date) Pap Treatment unknown) Response/Side Effects: nonadherent to current (unknown) (no (unknown) (unknown) Treatment (units (unkn own) date) Response/Side Affects unknown) (unknown) (no (unknown) (unknown) Unfortunately our (units (unknown) date) sleep center is unknown) closing. Patient understands they should (unknown) (no (unknown) (unknown) Usage: % with % (units (unknown) date) greater than 4 hours. unknown) Leak . 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 unknown) (unknown) (no (unknown) (unknown) Visit type (FU): (units (unknown) date) follow up of LORI unknown) therapy Follow up evaluation of LORI therapy: (unknown) (no (unknown) (unknown) Watching TV: 3 = (units (unknown) date) High unknown) (unknown) (no (unknown) (unknown) [History Confirmed (units (unknown) date) 11/06/22] unknown) (unknown) (no (unknown) (unknown) a little, normal (units (unknown) date) bedtime ([id number]), unknown) normal wake time (0800), sleep schedule (unknown) (no (unknown) (unknown) also a history of (units (unknown) date) hypertension and unknown) depression with a Mallampati score of IV. (unknown) (no (unknown) (unknown) appreciated, apnea (units (unknown) date) not witnessed, unknown) choking or gasping Choking or Gasping Branch: (unknown) (no (unknown) (unknown) burn symptoms at (units (unknown) date) night, reports unknown) nocturia (once per night), reports pain (back (unknown) (no (unknown) (unknown) but increased (units ( unknown) date) benefit from more unknown) usage was also explained. (unknown) (no (unknown) (unknown) conditions or can be (uni ts (unknown) date) a primary problem. unknown) Risks and symptoms of drowsiness were (unknown) (no (unknown) (unknown) congestion at night, (uni ts (unknown) date) reports dry mouth unknown) (sometimes), denies sore throat in the (unknown) (no (unknown) (unknown) daytime sleeping and (uni ts (unknown) date) an initially elevated unknown) [place] Sleepiness Scale score of (unknown) (no (unknown) (unknown) denied, epworth (units (unknown) date) sleep scale score unknown) (09/15) and bruxism Bruxism Branch: denied (unknown) (no (unknown) (unknown) diffuse the exhaust (unit s (unknown) date) a different way. He unknown) will call. May need to try oral device. (unknown) (no (unknown) (unknown) down to 86%. CPAP (units (unknown) date) initiated. unknown) (unknown) (no (unknown) (unknown) drowsy. (units (unkno wn) date) unknown) (unknown) (no (unknown) (unknown) durng the day, (units (unknown) date) reports depression unknown) (managed) and reports anxiety (unknown) (no (unknown) (unknown) flow. He is clearly (unit s (unknown) date) benefitting from unknown) therapy and willing to continue with CPAP. (unknown) (no (unknown) (unknown) for any type of (units (unknown) date) surgery. unknown) (unknown) (no (unknown) (unknown) for him. Would like (unit s (unknown) date) to know if there was unknown) a way to redirect the exhaust on the (unknown) (no (unknown) (unknown) have occurred. If (units (unknown) date) there are any unknown) questions, please contact the Medical Records (unknown) (no (unknown) (unknown) his eye issues to (units (unknown) date) worsen as there is no unknown) further ophthalmological intervention (unknown) (no (unknown) (unknown) implications of (units (unknown) date) findings discussed. unknown) Compliance is excellent with optimal AHI (unknown) (no (unknown) (unknown) intermittent, early (unit s (unknown) date) morning awakening unknown) denied, spending time in bed not sleeping (unknown) (no (unknown) (unknown) lifitegrast 5 % eye (unit s (unknown) date) drops in a unknown) dropperette ([facility]) drp EYE-BOTH 08/15/21 (unknown) (no (unknown) (unknown) mask. He was (units (u nknown) date) encouraged to go back unknown) to [place] [facility] [place] device that can (unknown) (no (unknown) (unknown) may occur. (units (unk nown) date) Occasional wrong-word unknown) or 'sound-alike' substitutions may have (unknown) (no (unknown) (unknown) morning, denies (units (unknown) date) nocturnal cough, unknown) denies nocturnal palpitations, denies heart (unknown) (no (unknown) (unknown) not able to tolerate. (uni ts (unknown) date) Went to [facility] without unknown) success. Does not wish to be evaluated (unknown) (no (unknown) (unknown) occurred due to the (unit s (unknown) date) inherent limitations unknown) of voice recognition software. Please (unknown) (no (unknown) (unknown) on PAP well, sleep (units (unknown) date) quality well and unknown) daytime sleepiness Daytime Sleepiness Branch (unknown) (no (unknown) (unknown) pain), denies (units ( unknown) date) dizziness in the unknown) morning, denies trouble consentrating/focusin g (unknown) (no (unknown) (unknown) pattern. NPSG (units ( unknown) date) consistent with unknown) moderate LORI (AHI 15.2) with desaturation events (unknown) (no (unknown) (unknown) possible for (units (u nknown) date) continued care. unknown) (unknown) (no (unknown) (unknown) read the note (units ( unknown) date) carefully and unknown) recognize, using context, where these substitutions (unknown) (no (unknown) (unknown) reassessed once mask (uni ts (unknown) date) is optimized. unknown) (unknown) (no (unknown) (unknown) reports night (units ( unknown) date) sweats, reports unknown) morning headache (sometimes), denies nasal (unknown) (no (unknown) (unknown) reviewed. This has (units (unknown) date) improved on CPAP with unknown) current score of 09/15. This will be (unknown) (no (unknown) (unknown) schedule an (units (unk nown) date) appointment to unknown) establish care with a new sleep specialist as soon as (unknown) (no (unknown) (unknown) sentences and no (units (unknown) date) audible wheezes unknown) (unknown) (no (unknown) (unknown) software. 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 (unit s (unknown) date) Mask exhaust blows unknown) air to his eyes and this wakes him up. (unknown) (no (unknown) (unknown) wellbutrin PO DAILY (unit s (unknown) date) 09/10/22 [History unknown) Confirmed 11/06/22] (unknown) (no (unknown) (unknown) wish to do this yet (unit s (unknown) date) and agrees to call unknown) DME. Result panel 15 (unknown) (no (unknown) (unknown) (no value) (units (unk nown) date) unknown) (unknown) (no (unknown) (unknown) (1) Obstructive (units (unknown) date) sleep apnea of adult: unknown) (unknown) (no (unknown) (unknown) (2) Excessive (units ( unknown) date) daytime sleepiness: unknown) (unknown) (no (unknown) (unknown) 0 = Would never doze (uni ts (unknown) date) or sleep, 1 = Slight unknown) chance of dozing or sleeping, 2 = (unknown) (no (unknown) (unknown) 11/06/22 (units (unkno wn) date) unknown) (unknown) (no (unknown) (unknown) 2: better (units (unkn own) date) unknown) (unknown) (no (unknown) (unknown) [id number] (units (unkno wn) date) unknown) (unknown) (no (unknown) (unknown) 86%. CPAP initiated. 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, unknown) surgical intervention was completed but he (unknown) (no (unknown) (unknown) Appearance: grossly (unit s (unknown) date) normal unknown) (unknown) (no (unknown) (unknown) Assessment + Plan (units (unknown) date) unknown) (unknown) (no (unknown) (unknown) Assessment and Plan: (uni ts (unknown) date) unknown) (unknown) (no (unknown) (unknown) Attending Dr: Paradise (unit s (unknown) date) Layla SOTO unknown) (unknown) (no (unknown) (unknown) Attitude: (units (unkn own) date) cooperative unknown) (unknown) (no (unknown) (unknown) Being a passenger in (uni ts (unknown) date) a motor vehicle for unknown) an hour or so: 3 = High (unknown) (no (unknown) (unknown) CPAP (5-15 cwp) (units (unknown) date) unknown) (unknown) (no (unknown) (unknown) Caffeine Branch: no (unit s (unknown) date) and denies sleeping unknown) pills (unknown) (no (unknown) (unknown) Chief Complaint: (units (unknown) date) Follow up CPAP unknown) therapy for LORI (unknown) (no (unknown) (unknown) Clinical Course (units (unknown) date) unknown) (unknown) (no (unknown) (unknown) Cognition: normal (units (unknown) date) cognition unknown) (unknown) (no (unknown) (unknown) Condition is Onset: (unit s (unknown) date) Chronic and ongoing unknown) condition (unknown) (no (unknown) (unknown) Conjunctivae: (units ( unknown) date) conjunctivae normal unknown) (unknown) (no (unknown) (unknown) Const (units (unkno wn) date) unknown) (unknown) (no (unknown) (unknown) Currently CPAP is (units (unknown) date) set 5-15 cwp. Not unknown) using his device. (unknown) (no (unknown) (unknown) DME: [employer] (units (un known) date) unknown) (unknown) (no (unknown) (unknown) : 1980 (units (unknown) date) Acct:[id number] unknown) (unknown) (no (unknown) (unknown) Dept at (units (unkno wn) date) . unknown) (unknown) (no (unknown) (unknown) Details: (units (unkno wn) date) unknown) (unknown) (no (unknown) (unknown) Device set up: (units (unknown) date) 07/14/2022 unknown) (unknown) (no (unknown) (unknown) Documented By: (units (unknown) date) Paradise Rich unknown) 11/06/22 1331 (unknown) (no (unknown) (unknown) Draft (units (unkno wn) date) unknown) (unknown) (no (unknown) (unknown) Drowsy driving (units (unknown) date) handout made unknown) available. (unknown) (no (unknown) (unknown) Ears: hearing (units ( unknown) date) grossly normal unknown) bilaterally (unknown) (no (unknown) (unknown) Effort + Inspection: (uni ts (unknown) date) normal respiratory unknown) effort, able to speak in complete (unknown) (no (unknown) (unknown) [place] Score: 18 (units (unknown) date) unknown) (unknown) (no (unknown) (unknown) [place] Sleepiness (units (unknown) date) Scale unknown) (unknown) (no (unknown) (unknown) Exacerbating/Allevia (uni ts (unknown) date) ting Factors unknown) (unknown) (no (unknown) (unknown) Exam Narrative (units (unknown) date) unknown) (unknown) (no (unknown) (unknown) Exam Narrative: (units (unknown) date) unknown) (unknown) (no (unknown) (unknown) Exam (units (unkno wn) date) unknown) (unknown) (no (unknown) (unknown) Eyes (units (unkno wn) date) unknown) (unknown) (no (unknown) (unknown) General: (units (unkno wn) date) cooperative, unknown) comfortable and no acute distress (unknown) (no (unknown) (unknown) General: patient (units (unknown) date) alert, patient awake unknown) and patient oriented x3 (unknown) (no (unknown) (unknown) HENMT (units (unkno wn) date) unknown) (unknown) (no (unknown) (unknown) HPI Sleep Follow Up (unit s (unknown) date) unknown) (unknown) (no (unknown) (unknown) HPI (units (unkno wn) date) unknown) (unknown) (no (unknown) (unknown) HYDROCHLOROTHIAZIDE (unit s (unknown) date) PO 08/15/21 [History unknown) Confirmed 11/06/22] (unknown) (no (unknown) (unknown) Has been working (units (unknown) date) with [employer] but this unknown) did not work out. Does not want his eye (unknown) (no (unknown) (unknown) He was encouraged to (uni ts (unknown) date) go back to the DME unknown) for a clip on device that can diffuse (unknown) (no (unknown) (unknown) Head: normal to (units (unknown) date) inspection unknown) (unknown) (no (unknown) (unknown) Intake (units (unkno wn) date) unknown) (unknown) (no (unknown) (unknown) Loc: SLEEP (units (unk nown) date) unknown) (unknown) (no (unknown) (unknown) Lying down in the (units (unknown) date) afternoon: 3 = High unknown) (unknown) (no (unknown) (unknown) Medical History (units (unknown) date) (Updated 09/10/22 @ unknown) 09:05 by BRITTANY Maynard) (unknown) (no (unknown) (unknown) Medications (units (un known) date) unknown) (unknown) (no (unknown) (unknown) Moderate LORI. (units ( unknown) date) Patient reports a unknown) history of snoring and a disturbed sleep (unknown) (no (unknown) (unknown) Moderate chance of (units (unknown) date) dozing or sleeping, 3 unknown) = High chance of dozing or sleeping (unknown) (no (unknown) (unknown) Mood: congruent mood (uni ts (unknown) date) unknown) (unknown) (no (unknown) (unknown) NPSG consistent with (uni ts (unknown) date) moderate LORI (AHI unknown) 15.2) with desaturation events down to (unknown) (no (unknown) (unknown) Neck (units (unkno wn) date) unknown) (unknown) (no (unknown) (unknown) Neck: normal visual (unit s (unknown) date) inspection unknown) (unknown) (no (unknown) (unknown) Neuro (units (unkno wn) date) unknown) (unknown) (no (unknown) (unknown) Not using device (units (unknown) date) unknown) (unknown) (no (unknown) (unknown) Nursing is (units (unk nown) date) attempting to call unknown) him but his mailbox is full so we could not leave (unknown) (no (unknown) (unknown) Obstructive sleep (units (unknown) date) apnea of adult unknown) (unknown) (no (unknown) (unknown) PAP treatment (units ( unknown) date) unknown) (unknown) (no (unknown) (unknown) PFSH (units (unkno wn) date) unknown) (unknown) (no (unknown) (unknown) Pain scale (1-10): 0 (uni ts (unknown) date) unknown) (unknown) (no (unknown) (unknown) Pain (units (unkno wn) date) unknown) (unknown) (no (unknown) (unknown) Patient instructed (units (unknown) date) to use scheduled naps unknown) as needed for drowsiness safety (unknown) (no (unknown) (unknown) Patient reports a (units (unknown) date) history of snoring unknown) and a disturbed sleep pattern. There is (unknown) (no (unknown) (unknown) Patient reports (units (unknown) date) alcohol Sleep Alcohol unknown) Branch: never, reports caffeine Sleep (unknown) (no (unknown) (unknown) Patient reports (units (unknown) date) difficulty falling unknown) asleep is denied, difficulty staying asleep (unknown) (no (unknown) (unknown) Patient was (units (un known) date) instructed to avoid unknown) driving or operating heavy machinery when (unknown) (no (unknown) (unknown) Patient: (units (unkno wn) date) Jerzy Reeder MR#: unknown) M000 (unknown) (no (unknown) (unknown) Pertinent (units (unkn own) date) Positives/Negatives unknown) (unknown) (no (unknown) (unknown) Plan (units (unkno wn) date) unknown) (unknown) (no (unknown) (unknown) Prescription written (uni ts (unknown) date) for renewal of PAP unknown) supplies (unknown) (no (unknown) (unknown) Psych (units (unkno wn) date) unknown) (unknown) (no (unknown) (unknown) Questionnaires (units (unknown) date) unknown) (unknown) (no (unknown) (unknown) Reason For Visit (units (unknown) date) unknown) (unknown) (no (unknown) (unknown) Recommendations: Tap (uni ts (unknown) date) pap mask. Goggles for unknown) eye protection, from his eye doctor. (unknown) (no (unknown) (unknown) Resp (units (unkno wn) date) unknown) (unknown) (no (unknown) (unknown) SWELLING (units (unkno wn) date) unknown) (unknown) (no (unknown) (unknown) Sclera: sclerae (units (unknown) date) normal unknown) (unknown) (no (unknown) (unknown) Signed By: (units (unk nown) date) unknown) (unknown) (no (unknown) (unknown) Sitting and Reading: (uni ts (unknown) date) 3 = High unknown) (unknown) (no (unknown) (unknown) Sitting and talking (unit s (unknown) date) to someone: 1 = unknown) Slight (unknown) (no (unknown) (unknown) Sitting inactive in (unit s (unknown) date) a public place: 2 = unknown) Moderate (unknown) (no (unknown) (unknown) Sitting quietly (units (unknown) date) after lunch (no unknown) alcohol): 2 = Moderate (unknown) (no (unknown) (unknown) Sleep Schedule (units (unknown) date) Branch: consistent, unknown) daytime somnolence rare, snoring not (unknown) (no (unknown) (unknown) Sleep Visit (units (un known) date) unknown) (unknown) (no (unknown) (unknown) [facility] unknown) (unknown) (no (unknown) (unknown) Smoking Status: (units (unknown) date) Never smoker unknown) (unknown) (no (unknown) (unknown) Speech and Movement: (uni ts (unknown) date) speech and movement unknown) normal (unknown) (no (unknown) (unknown) Speech: speech (units (unknown) date) normal unknown) (unknown) (no (unknown) (unknown) Status: Acute (units ( unknown) date) unknown) (unknown) (no (unknown) (unknown) Stopped for a few (units (unknown) date) minutes in traffic: 1 unknown) = Slight (unknown) (no (unknown) (unknown) Sulfa (Sulfonamide (units (unknown) date) Antibiotics) Allergy unknown) (Verified 11/06/22 15:54) (unknown) (no (unknown) (unknown) Symptoms (units (unkno wn) date) unknown) (unknown) (no (unknown) (unknown) The patient reports (unit s (unknown) date) symptoms of excessive unknown) daytime sleepiness as evidenced by (unknown) (no (unknown) (unknown) This note may have (units (unknown) date) been all or partially unknown) generated using voice recognition (unknown) (no (unknown) (unknown) Tobacco + Substance (unit s (unknown) date) Use unknown) (unknown) (no (unknown) (unknown) Tobacco Status (units (unknown) date) unknown) (unknown) (no (unknown) (unknown) Treatment Effects: (units (unknown) date) Pap Treatment unknown) Response/Side Effects: nonadherent to current (unknown) (no (unknown) (unknown) Treatment (units (unkn own) date) Response/Side Affects unknown) (unknown) (no (unknown) (unknown) Try Tap pap mask. (units (unknown) date) May try Goggles for unknown) eye protection, from eye doctor. (unknown) (no (unknown) (unknown) Unfortunately our (units (unknown) date) sleep center is unknown) closing. Patient understands they should (unknown) (no (unknown) (unknown) Visit Reasons: 2m (units (unknown) date) f/u / [employer] unknown) (unknown) (no (unknown) (unknown) Visit type (FU): (units (unknown) date) follow up of LORI unknown) therapy Follow up evaluation of LORI therapy: (unknown) (no (unknown) (unknown) Watching TV: 3 = (units (unknown) date) High unknown) (unknown) (no (unknown) (unknown) We also found a mask (uni ts (unknown) date) that muffles the unknown) exhaust but unfortunately, he left before (unknown) (no (unknown) (unknown) Will continue (units ( unknown) date) attempts to call him unknown) 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 Will keep (uni ts (unknown) date) trying. unknown) (unknown) (no (unknown) (unknown) also a history of (units (unknown) date) hypertension and unknown) depression with a Mallampati score of IV. (unknown) (no (unknown) (unknown) appreciated, apnea (units (unknown) date) not witnessed, unknown) choking or gasping Choking or Gasping Branch: (unknown) (no (unknown) (unknown) burn symptoms at (units (unknown) date) night, reports unknown) nocturia (once per night), reports pain (back (unknown) (no (unknown) (unknown) can be seen (units (un known) date) secondary to sleep unknown) apnea, insomnia, depression, medical conditions (unknown) (no (unknown) (unknown) congestion at night, (uni ts (unknown) date) reports dry mouth unknown) (sometimes), denies sore throat in the (unknown) (no (unknown) (unknown) daytime sleeping and (uni ts (unknown) date) an elevated [place] unknown) Sleepiness Scale score of 18/24. This (unknown) (no (unknown) (unknown) denied, epworth (units (unknown) date) sleep scale score unknown) (09/15) and bruxism Bruxism Branch: denied (unknown) (no (unknown) (unknown) down to 86%. CPAP (units (unknown) date) initiated. Also unknown) history of HTN. (unknown) (no (unknown) (unknown) drowsy. (units (unkno wn) date) unknown) (unknown) (no (unknown) (unknown) durng the day, (units (unknown) date) reports depression unknown) (managed) and reports anxiety (unknown) (no (unknown) (unknown) evaluated for any (units (unknown) date) type of surgery. unknown) (unknown) (no (unknown) (unknown) have occurred. If (units (unknown) date) there are any unknown) questions, please contact the Medical Records (unknown) (no (unknown) (unknown) help. (units (unkno wn) date) unknown) (unknown) (no (unknown) (unknown) intermittent, early (unit s (unknown) date) morning awakening unknown) denied, spending time in bed not sleeping (unknown) (no (unknown) (unknown) issues to worsen as (unit s (unknown) date) there is no further unknown) ophthalmological intervention for him. (unknown) (no (unknown) (unknown) lifitegrast 5 % eye (unit s (unknown) date) drops in a unknown) dropperette ([place]) drp EYE-BOTH 08/15/21 (unknown) (no (unknown) (unknown) may occur. (units (unk nown) date) Occasional wrong-word unknown) or 'sound-alike' substitutions may have (unknown) (no (unknown) (unknown) morning, denies (units (unknown) date) nocturnal cough, unknown) denies nocturnal palpitations, denies heart (unknown) (no (unknown) (unknown) occurred due to the (unit s (unknown) date) inherent limitations unknown) of voice recognition software. Please (unknown) (no (unknown) (unknown) on PAP not, sleep (units (unknown) date) quality okay and unknown) daytime sleepiness Daytime Sleepiness Branch (unknown) (no (unknown) (unknown) or can be a primary (unit s (unknown) date) problem. Risks and unknown) symptoms of drowsiness were reviewed. (unknown) (no (unknown) (unknown) oral appliance but (units (unknown) date) could not tolerate unknown) the device. He does not wish to be (unknown) (no (unknown) (unknown) pain), denies (units ( unknown) date) dizziness in the unknown) morning, denies trouble consentrating/focusin g (unknown) (no (unknown) (unknown) pattern. NPSG (units ( unknown) date) consistent with unknown) moderate LORI (AHI 15.2) with desaturation events (unknown) (no (unknown) (unknown) possible for (units (u nknown) date) continued care. unknown) (unknown) (no (unknown) (unknown) read the note (units ( unknown) date) carefully and unknown) recognize, using context, where these substitutions (unknown) (no (unknown) (unknown) reports night (units ( unknown) date) sweats, reports unknown) morning headache (sometimes), denies nasal (unknown) (no (unknown) (unknown) schedule an (units (unk nown) date) appointment to unknown) establish care with a new sleep specialist as soon as (unknown) (no (unknown) (unknown) sentences and no (units (unknown) date) audible wheezes unknown) (unknown) (no (unknown) (unknown) software. 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 (unit s (unknown) date) Mask exhaust blows unknown) air to his eyes and this wakes him up. (unknown) (no (unknown) (unknown) the exhaust a (units ( unknown) date) different way but he unknown) did not have any luck with this. He tried (unknown) (no (unknown) (unknown) we could give it to (unit s (unknown) date) him. The mask was unknown) left at the front desk specialist for him to try. (unknown) (no (unknown) (unknown) wellbutrin PO DAILY (unit s (unknown) date) 09/10/22 [History unknown) Confirmed 11/06/22] Result panel 16 (unknown) (no (unknown) (unknown) (no value) (units (unk nown) date) unknown) (unknown) (no (unknown) (unknown) (1) Obstructive (units (unknown) date) sleep apnea of adult: unknown) (unknown) (no (unknown) (unknown) (2) Excessive (units ( unknown) date) daytime sleepiness: unknown) (unknown) (no (unknown) (unknown) 0 = Would never doze (uni ts (unknown) date) or sleep, 1 = Slight unknown) chance of dozing or sleeping, 2 = (unknown) (no (unknown) (unknown) 11/06/22 1644 (units ( unknown) date) unknown) (unknown) (no (unknown) (unknown) 11/06/22 (units (unkno wn) date) unknown) (unknown) (no (unknown) (unknown) 2: better (units (unkn own) date) unknown) (unknown) (no (unknown) (unknown) [id number] (units (unkno wn) date) unknown) (unknown) (no (unknown) (unknown) 86%. CPAP initiated. 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 but he (unknown) (no (unknown) (unknown) Appearance: grossly (unit s (unknown) date) normal unknown) (unknown) (no (unknown) (unknown) Assessment + Plan (units (unknown) date) unknown) (unknown) (no (unknown) (unknown) Assessment and Plan: (uni ts (unknown) date) unknown) (unknown) (no (unknown) (unknown) Attending Dr: Paradise (unit s (unknown) date) Layla SOTO unknown) (unknown) (no (unknown) (unknown) Attitude: (units (unkn own) date) cooperative unknown) (unknown) (no (unknown) (unknown) Being a passenger in (uni ts (unknown) date) a motor vehicle for unknown) an hour or so: 3 = High (unknown) (no (unknown) (unknown) CPAP (5-15 cwp) (units (unknown) date) unknown) (unknown) (no (unknown) (unknown) Caffeine Branch: no (unit s (unknown) date) and denies sleeping unknown) pills (unknown) (no (unknown) (unknown) Chief Complaint: (units (unknown) date) Follow up CPAP unknown) therapy for LORI (unknown) (no (unknown) (unknown) Clinical Course (units (unknown) date) unknown) (unknown) (no (unknown) (unknown) Cognition: normal (units (unknown) date) cognition unknown) (unknown) (no (unknown) (unknown) Condition is Onset: (unit s (unknown) date) Chronic and ongoing unknown) condition (unknown) (no (unknown) (unknown) Conjunctivae: (units ( unknown) date) conjunctivae normal unknown) (unknown) (no (unknown) (unknown) Const (units (unkno wn) date) unknown) (unknown) (no (unknown) (unknown) Currently CPAP is (units (unknown) date) set 5-15 cwp. Not unknown) using his device. (unknown) (no (unknown) (unknown) DME: [employer] (units (un known) date) unknown) (unknown) (no (unknown) (unknown) : 1980 (units (unknown) date) Acct:[id number] unknown) (unknown) (no (unknown) (unknown) Details: (units (unkno wn) date) unknown) (unknown) (no (unknown) (unknown) Device set up: (units (unknown) date) 07/14/2022 unknown) (unknown) (no (unknown) (unknown) Documented By: (units (unknown) date) Paradise Rich unknown) 11/06/22 1331 (unknown) (no (unknown) (unknown) Drowsy driving (units (unknown) date) handout made unknown) available. (unknown) (no (unknown) (unknown) Ears: hearing (units ( unknown) date) grossly normal unknown) bilaterally (unknown) (no (unknown) (unknown) Effort + Inspection: (uni ts (unknown) date) normal respiratory unknown) effort, able to speak in complete (unknown) (no (unknown) (unknown) [place] Score: 18 (units (unknown) date) unknown) (unknown) (no (unknown) (unknown) [place] Sleepiness (units (unknown) date) Scale unknown) (unknown) (no (unknown) (unknown) Exacerbating/Allevia (uni ts (unknown) date) ting Factors unknown) (unknown) (no (unknown) (unknown) Exam Narrative (units (unknown) date) unknown) (unknown) (no (unknown) (unknown) Exam Narrative: (units (unknown) date) unknown) (unknown) (no (unknown) (unknown) Exam (units (unkno wn) date) unknown) (unknown) (no (unknown) (unknown) Eyes (units (unkno wn) date) unknown) (unknown) (no (unknown) (unknown) General: (units (unkno wn) date) cooperative, unknown) comfortable and no acute distress (unknown) (no (unknown) (unknown) General: patient (units (unknown) date) alert, patient awake unknown) and patient oriented x3 (unknown) (no (unknown) (unknown) HENMT (units (unkno wn) date) unknown) (unknown) (no (unknown) (unknown) HPI Sleep Follow Up (unit s (unknown) date) unknown) (unknown) (no (unknown) (unknown) HPI (units (unkno wn) date) unknown) (unknown) (no (unknown) (unknown) HYDROCHLOROTHIAZIDE (unit s (unknown) date) PO 08/15/21 [History unknown) Confirmed 11/06/22] (unknown) (no (unknown) (unknown) Has been working (units (unknown) date) with [employer] but this unknown) did not work out. Does not want his eye (unknown) (no (unknown) (unknown) He was encouraged to (uni ts (unknown) date) go back to the DME unknown) for a clip on device that can diffuse (unknown) (no (unknown) (unknown) Head: normal to (units (unknown) date) inspection unknown) (unknown) (no (unknown) (unknown) Intake (units (unkno wn) date) unknown) (unknown) (no (unknown) (unknown) Loc: SLEEP (units (unk nown) date) unknown) (unknown) (no (unknown) (unknown) Lying down in the (units (unknown) date) afternoon: 3 = High unknown) (unknown) (no (unknown) (unknown) May try Goggles for (unit s (unknown) date) eye protection, from unknown) eye doctor. (unknown) (no (unknown) (unknown) Medical History (units (unknown) date) (Updated 09/10/22 @ unknown) 09:05 by BRITTANY Maynard) (unknown) (no (unknown) (unknown) Medications (units (un known) date) unknown) (unknown) (no (unknown) (unknown) Moderate LORI. (units ( unknown) date) Patient reports a unknown) history of snoring and a disturbed sleep (unknown) (no (unknown) (unknown) Moderate chance of (units (unknown) date) dozing or sleeping, 3 unknown) = High chance of dozing or sleeping (unknown) (no (unknown) (unknown) Mood: congruent mood (uni ts (unknown) date) unknown) (unknown) (no (unknown) (unknown) NPSG consistent with (uni ts (unknown) date) moderate LORI (AHI unknown) 15.2) with desaturation events down to (unknown) (no (unknown) (unknown) Neck (units (unkno wn) date) unknown) (unknown) (no (unknown) (unknown) Neck: normal visual (unit s (unknown) date) inspection unknown) (unknown) (no (unknown) (unknown) Neuro (units (unkno wn) date) unknown) (unknown) (no (unknown) (unknown) Not using device (units (unknown) date) unknown) (unknown) (no (unknown) (unknown) Nursing is (units (unk nown) date) attempting to call unknown) him but his mailbox is full so we could not leave (unknown) (no (unknown) (unknown) Obstructive sleep (units (unknown) date) apnea of adult unknown) (unknown) (no (unknown) (unknown) PAP treatment (units ( unknown) date) unknown) (unknown) (no (unknown) (unknown) PFSH (units (unkno wn) date) unknown) (unknown) (no (unknown) (unknown) Pain scale (1-10): 0 (uni ts (unknown) date) unknown) (unknown) (no (unknown) (unknown) Pain (units (unkno wn) date) unknown) (unknown) (no (unknown) (unknown) Patient instructed (units (unknown) date) to use scheduled naps unknown) as needed for drowsiness safety (unknown) (no (unknown) (unknown) Patient reports a (units (unknown) date) history of snoring unknown) and a disturbed sleep pattern. There is (unknown) (no (unknown) (unknown) Patient reports (units (unknown) date) alcohol Sleep Alcohol unknown) Branch: never, reports caffeine Sleep (unknown) (no (unknown) (unknown) Patient reports (units (unknown) date) difficulty falling unknown) asleep is denied, difficulty staying asleep (unknown) (no (unknown) (unknown) Patient was (units (un known) date) instructed to avoid unknown) driving or operating heavy machinery when (unknown) (no (unknown) (unknown) Patient: (units (unkno wn) date) Jerzy Reeder MR#: unknown) M000 (unknown) (no (unknown) (unknown) Pertinent (units (unkn own) date) Positives/Negatives unknown) (unknown) (no (unknown) (unknown) Plan (units (unkno wn) date) unknown) (unknown) (no (unknown) (unknown) Prescription written (uni ts (unknown) date) for renewal of PAP unknown) supplies in case he would like to (unknown) (no (unknown) (unknown) Psych (units (unkno wn) date) unknown) (unknown) (no (unknown) (unknown) Questionnaires (units (unknown) date) unknown) (unknown) (no (unknown) (unknown) Reason For Visit (units (unknown) date) unknown) (unknown) (no (unknown) (unknown) Recommendations: Tap (uni ts (unknown) date) pap mask. Goggles for unknown) eye protection, from his eye doctor. (unknown) (no (unknown) (unknown) Resp (units (unkno wn) date) unknown) (unknown) (no (unknown) (unknown) SWELLING (units (unkno wn) date) unknown) (unknown) (no (unknown) (unknown) Sclera: sclerae (units (unknown) date) normal unknown) (unknown) (no (unknown) (unknown) Signed By: (units (unk nown) date) <Electronically unknown) signed by Paradise Rich> (unknown) (no (unknown) (unknown) Signed (units (unkno wn) date) unknown) (unknown) (no (unknown) (unknown) Sitting and Reading: (uni ts (unknown) date) 3 = High unknown) (unknown) (no (unknown) (unknown) Sitting and talking (unit s (unknown) date) to someone: 1 = unknown) Slight (unknown) (no (unknown) (unknown) Sitting inactive in (unit s (unknown) date) a public place: 2 = unknown) Moderate (unknown) (no (unknown) (unknown) Sitting quietly (units (unknown) date) after lunch (no unknown) alcohol): 2 = Moderate (unknown) (no (unknown) (unknown) Sleep Schedule (units (unknown) date) Branch: consistent, unknown) daytime somnolence rare, snoring not (unknown) (no (unknown) (unknown) Sleep Visit (units (un known) date) unknown) (unknown) (no (unknown) (unknown) [facility] ([facility] unknown) (unknown) (no (unknown) (unknown) Smoking Status: (units (unknown) date) Never smoker unknown) (unknown) (no (unknown) (unknown) Speech and Movement: (uni ts (unknown) date) speech and movement unknown) normal (unknown) (no (unknown) (unknown) Speech: speech (units (unknown) date) normal unknown) (unknown) (no (unknown) (unknown) Status: Acute (units ( unknown) date) unknown) (unknown) (no (unknown) (unknown) Stopped for a few (units (unknown) date) minutes in traffic: 1 unknown) = Slight (unknown) (no (unknown) (unknown) Sulfa (Sulfonamide (units (unknown) date) Antibiotics) Allergy unknown) (Verified 11/06/22 15:54) (unknown) (no (unknown) (unknown) Symptoms (units (unkno wn) date) unknown) (unknown) (no (unknown) (unknown) The patient reports (unit s (unknown) date) symptoms of excessive unknown) daytime sleepiness as evidenced by (unknown) (no (unknown) (unknown) This note may have (units (unknown) date) been all or partially unknown) generated using voice recognition (unknown) (no (unknown) (unknown) Tobacco + Substance (unit s (unknown) date) Use unknown) (unknown) (no (unknown) (unknown) Tobacco Status (units (unknown) date) unknown) (unknown) (no (unknown) (unknown) Treatment Effects: (units (unknown) date) Pap Treatment unknown) Response/Side Effects: nonadherent to current (unknown) (no (unknown) (unknown) Treatment (units (unkn own) date) Response/Side Affects unknown) (unknown) (no (unknown) (unknown) Try Tap pap mask. (units (unknown) date) unknown) (unknown) (no (unknown) (unknown) Unfortunately our (units (unknown) date) sleep center is unknown) closing. Patient understands they should (unknown) (no (unknown) (unknown) Visit Reasons: 2m (units (unknown) date) f/u / rotech unknown) (unknown) (no (unknown) (unknown) Visit type (FU): (units (unknown) date) follow up of LORI unknown) therapy Follow up evaluation of LORI therapy: (unknown) (no (unknown) (unknown) Watching TV: 3 = (units (unknown) date) High unknown) (unknown) (no (unknown) (unknown) We also found a mask (uni ts (unknown) date) that muffles the unknown) exhaust but unfortunately, he left before (unknown) (no (unknown) (unknown) Will continue (units ( unknown) date) attempts to call him unknown) 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 Will keep (uni ts (unknown) date) trying. unknown) (unknown) (no (unknown) (unknown) also a history of (units (unknown) date) hypertension and unknown) depression with a Mallampati score of IV. (unknown) (no (unknown) (unknown) appreciated, apnea (units (unknown) date) not witnessed, unknown) choking or gasping Choking or Gasping Branch: (unknown) (no (unknown) (unknown) at . (units (unknown) date) unknown) (unknown) (no (unknown) (unknown) burn symptoms at (units (unknown) date) night, reports unknown) nocturia (once per night), reports pain (back (unknown) (no (unknown) (unknown) can be seen (units (un known) date) secondary to sleep unknown) apnea, insomnia, depression, medical conditions (unknown) (no (unknown) (unknown) congestion at night, (uni ts (unknown) date) reports dry mouth unknown) (sometimes), denies sore throat in the (unknown) (no (unknown) (unknown) continue with PAP (units (unknown) date) unknown) (unknown) (no (unknown) (unknown) daytime sleeping and (uni ts (unknown) date) an elevated [place] unknown) Sleepiness Scale score of 18/24. This (unknown) (no (unknown) (unknown) denied, epworth (units (unknown) date) sleep scale score unknown) (09/15) and bruxism Bruxism Branch: denied (unknown) (no (unknown) (unknown) down to 86%. CPAP (units (unknown) date) initiated. Also unknown) history of HTN. (unknown) (no (unknown) (unknown) drowsy. (units (unkno wn) date) unknown) (unknown) (no (unknown) (unknown) due to the inherent (unit s (unknown) date) limitations of voice unknown) recognition software. Please read the (unknown) (no (unknown) (unknown) durng the day, (units (unknown) date) reports depression unknown) (managed) and reports anxiety (unknown) (no (unknown) (unknown) evaluated for any (units (unknown) date) type of surgery. unknown) (unknown) (no (unknown) (unknown) help. (units (unkno wn) date) unknown) (unknown) (no (unknown) (unknown) intermittent, early (unit s (unknown) date) morning awakening unknown) denied, spending time in bed not sleeping (unknown) (no (unknown) (unknown) issues to worsen as (unit s (unknown) date) there is no further unknown) ophthalmological intervention for him. (unknown) (no (unknown) (unknown) lifitegrast 5 % eye (unit s (unknown) date) drops in a unknown) dropperette (Xiidra) drp EYE-BOTH 08/15/21 (unknown) (no (unknown) (unknown) morning, denies (units (unknown) date) nocturnal cough, unknown) denies nocturnal palpitations, denies heart (unknown) (no (unknown) (unknown) note carefully and (units (unknown) date) recognize, using unknown) context, where these substitutions have (unknown) (no (unknown) (unknown) occurred. If there (units (unknown) date) are any questions, unknown) please contact the Medical Records Dept (unknown) (no (unknown) (unknown) on PAP not, sleep (units (unknown) date) quality okay and unknown) daytime sleepiness Daytime Sleepiness Branch (unknown) (no (unknown) (unknown) or can be a primary (unit s (unknown) date) problem. Risks and unknown) symptoms of drowsiness were reviewed. (unknown) (no (unknown) (unknown) oral appliance but (units (unknown) date) could not tolerate unknown) the device. He does not wish to be (unknown) (no (unknown) (unknown) pain), denies (units ( unknown) date) dizziness in the unknown) morning, denies trouble consentrating/focusin g (unknown) (no (unknown) (unknown) pattern. NPSG (units ( unknown) date) consistent with unknown) moderate LORI (AHI 15.2) with desaturation events (unknown) (no (unknown) (unknown) possible for (units (u nknown) date) continued evaluation unknown) and care. (unknown) (no (unknown) (unknown) reports night (units ( unknown) date) sweats, reports unknown) morning headache (sometimes), denies nasal (unknown) (no (unknown) (unknown) schedule an (units (unk nown) date) appointment to unknown) establish care with a new sleep specialist as soon as (unknown) (no (unknown) (unknown) sentences and no (units (unknown) date) audible wheezes unknown) (unknown) (no (unknown) (unknown) software. 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 (unit s (unknown) date) Mask exhaust blows unknown) air to his eyes and this wakes him up. (unknown) (no (unknown) (unknown) the exhaust a (units ( unknown) date) different way but he unknown) did not have any luck with this. He tried (unknown) (no (unknown) (unknown) we could give it to (unit s (unknown) date) him. The mask was unknown) left at the front desk specialist for him to try. (unknown) (no (unknown) (unknown) wellbutrin PO DAILY (unit s (unknown) date) 09/10/22 [History unknown) Confirmed 11/06/22] (unknown) (no (unknown) (unknown) y occur. Occasional (unit s (unknown) date) wrong-word or unknown) 'sound-alike' substitutions may have occurred Social History date description facility 2022-11-06 00:00 Never smoked tobacco ([facility] Vital Signs date measurement value units 2022-09-10 00:00 BMI 32.9 kg/m2 2022-09-10 00:00 BP_diastolic 99 mmHg 2022-09-10 00:00 BP_systolic 134 mmHg 2022-09-10 00:00 heart_rate 75 /min 2022-09-10 00:00 height_metric 182.88 cm 2022-09-10 00:00 height_standard 72 in 2022-09-10 00:00 respiration_rate 14 /min 2022-09-10 00:00 temperature_metric 36.5 C 2022-09-10 00:00 temperature_standard 97.7 F 2022-09-10 00:00 weight_metric 110.22 kg 2022-09-10 00:00 weight_standard 242.99 lb 2022-11-06 00:00 BMI 32.4 kg/m2 2022-11-06 00:00 BP_diastolic 78 mmHg 2022-11-06 00:00 BP_systolic 133 mmHg 2022-11-06 00:00 heart_rate 99 /min 2022-11-06 00:00 height_metric 182.88 cm 2022-11-06 00:00 height_standard 72 in 2022-11-06 00:00 respiration_rate 14 /min 2022-11-06 00:00 temperature_metric 36.5 C 2022-11-06 00:00 temperature_standard 97.7 F 2022-11-06 00:00 weight_metric 108.4 kg 2022-11-06 00:00 weight_standard 238.98 lb
--- NOTE | 2022-11-23 21:12 | ED Physician Documentation ---
History of Present Illness - Stated complaint Stated Complaint: HIGH BP - Chief complaint Chief Complaint: General - History obtained from History obtained from: Patient, Family - History of Present Illness Timing: How many days ago (3) - Additonal information Additional information: Jerzy Reeder is a 42-year-old male who is recently retired from service in the [employer] and is currently looking for a job. Today he is in the emergency department with concerns about a markedly elevated blood pressure. He has had a history of hypertension and has been on lisinopril and hydrochlorothiazide previously neither of which helped all that much. He was into see his doctor in October and was taken off the hydrochlorothiazide his blood pressure looked okay and he has restarted this several days ago when he noted his blood pressure was high when he started to record these for an upcoming visit with his physician. 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 He does have some kidney disease he is uncertain what it is. He is under stress with looking for a job after retiring and his sleep is off.He denies any use of alcohol or tobacco. Review of Systems Constitutional: denies: Fever, Chills Eyes: denies: Decreased vision Ears: denies: Ear pain Nose: denies: Rhinorrhea / runny nose, Congestion Throat: denies: Sore throat Cardiac: denies: Chest pain / pressure, Palpitations Respiratory: denies: Dyspnea, Cough GI: denies: Abdominal Pain, Nausea, Vomiting, Constipation, Diarrhea : denies: Dysuria, Frequency Skin: denies: Rash Musculoskeletal: denies: Neck pain, Back pain, Extremity pain Neurologic: reports: Headache, Other (Tingling to the left side of the face). 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: Other (Vasectomy) HEENT: Other - Present Medications Home Medications: Ambulatory Orders Medication Instructions Recorded Confirmed Amlodipine Besylate [Norvasc] 2.5 mg PO DAILY PM #20 tablet 11/23/22 Carboxymethylcellulose Sodium 11/23/22 [Refresh Plus] Lifitegrast [Xiidra] 11/23/22 buPROPion [Wellbutrin Sr] 11/23/22 - Allergies Allergies/Adverse Reactions: Allergies Allergy/AdvReac Type Severity Reaction Status Date / Time red dye Allergy Itching Verified 11/23/22 20:31 Sulfa (Sulfonamide Allergy Edema Verified 11/23/22 20:31 Antibiotics) - Social History Does the pt smoke?: No Smoking Status: Never smoker Does the pt drink ETOH?: No Does the pt have substance abuse?: No - Immunizations Immunizations are current?: Yes - POLST Patient has POLST: No PD ED PE NORMAL - Vitals Vital signs reviewed: Yes (Hypertensive) - General General: Alert and oriented X 3, No acute distress, Well developed/nourished - HEENT HEENT: Atraumatic, PERRL, EOMI - Neck Neck: Supple, no meningeal sign, No bony TTP - Cardiac Cardiac: RRR, No murmur - Respiratory Respiratory: No respiratory distress, Clear bilaterally - Abdomen Abdomen: Normal bowel sounds, Soft, Non tender, Non distended, No organomegaly - Back Back: No CVA TTP, No spinal TTP - Derm Derm: Normal color, Warm and dry, No rash - Extremities Extremities: No deformity, No edema - Neuro Neuro: Alert and oriented X 3, 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0 [place] # (Auto) 0.7 Eos # (Auto) 0.2 Baso # (Auto) 0.1 Absolute Nucleated RBC 0.00 Nucleated RBC % 0.0 Sodium 132 L Potassium 3.2 L Chloride 97 L Carbon Dioxide 25 Anion Gap 10.0 BUN 21 H Creatinine 1.4 H Estimated GFR (MDRD) 55 L Glucose 99 Calcium 9.1 Total Bilirubin 1.4 H AST 30 ALT 42 Alkaline Phosphatase 60 Troponin I High Sens 3.4 Total Protein 7.7 Albumin 4.8 Globulin 2.9 Albumin/Globulin Ratio 1.7 Lipase 33 Urine Color Urine Clarity Urine pH Ur Specific [place] Urine Protein Urine Glucose (UA) Urine Ketones Urine Occult Blood Urine Nitrite Urine Bilirubin Urine Urobilinogen Ur Leukocyte Esterase Ur Microscopic Review Urine Culture Comments 11/23/22 21:40 WBC RBC Hgb Hct MCV MCH MCHC RDW Plt Count MPV Neut # (Auto) Lymph # (Auto) [place] # (Auto) Eos # (Auto) Baso # (Auto) Absolute Nucleated RBC Nucleated RBC % Sodium Potassium Chloride Carbon Dioxide Anion Gap BUN Creatinine Estimated GFR (MDRD) Glucose Calcium Total Bilirubin AST ALT Alkaline Phosphatase Troponin I High Sens Total Protein Albumin Globulin Albumin/Globulin Ratio Lipase Urine Color YELLOW Urine Clarity CLEAR Urine pH 6.0 Ur Specific [place] 1.020 Urine Protein NEGATIVE Urine Glucose (UA) NEGATIVE Urine Ketones NEGATIVE Urine Occult Blood TRACE-INTA Urine Nitrite NEGATIVE Urine Bilirubin NEGATIVE Urine Urobilinogen 0.2 (NORMAL) Ur Leukocyte Esterase NEGATIVE Ur Microscopic Review NOT INDICATED Urine Culture Comments NOT INDICATED PD Medical Decision Making - ED course Complexity details: reviewed old records, reviewed results, re-evaluated patient, considered differential, d/w patient, d/w family Reviewed Lab Results: We ordered a complete blood count and chemistries as well as urinalysis and found that his white blood cell count, hemoglobin and hematocrit and platelets were normal. We found evidence of hyponatremia and hypokalemia which were both mild and evidence of mild chronic kidney disease with a BUN of 21 and a creatinine of 1.4. This is pre-existing for this patient and improved from his prior visit in June 2022. There is no evidence of proteinuria and only mild hematuria. The hematuria is possible indication of basement membrane disorder and the kidney. Social Determinants of Health: The patient has stress at home resulting from residential without a second job. The patient's sleep pattern has been disrupted secondary to this stress and this is likely contributing to his hypertension. ED course: 42-year-old Jerzy Reeder comes into the emergency department with a chief complaint of elevated blood pressure. He does have elevated systolic and diastolic pressures none of which are in a urgent or emergent category. He does not have evidence of encephalopathy or secondary organ involvement. The patient is interested in starting an alternative agent and asked me specifically to prescribe something for him. He has previously been on an JUAN inhibitor and hydrochlorothiazide. I chose Norvasc at a low dose and indicated the patient he would likely need to escalate his dose if he does not have adequate response to this. I have encouraged patient to follow-up with his primary care doctor for management of his hypertension. Departure - Departure Disposition: Home, Self Care Clinical Impression: Hypertension Qualifiers: Hypertension type: unspecified Qualified Code(s): I10 - Essential (primary) hypertension Condition: Stable Instructions: ED HTN Established Follow-Up: [facility] [Provider Group] Prescriptions: Amlodipine Besylate [Norvasc] 2.5 mg PO DAILY PM #20 tablet Comments: Jerzy, today we did find that you are hypertensive and we did not find significant abnormalities to your blood work. There is evidence of chronic kidney disease and this does not appear to have progressed.Today I will prescribe some Norvasc which is a third class of medications( this has been e- scribed to the [facility] in [place]) The hope is that with monotherapy with this you will gain control of your blood pressure. The usual timeframe is 2 to 4 weeks for a follow-up with your primary care doctor. Additional medication may be required and titration may be required. You are starting on the low-dose of this medication and increasing the dose if you do not get adequate response may be needed. Discharge Date/Time: 11/23/22 23:13
[2022-11-23 21:41] LABS: BASOPHILS # (AUTO) 0.1 10^3/uL (0.0-0.1); BASOPHILS % (AUTO) 2.1 %; EOSINOPHILS # (AUTO) 0.2 10^3/uL (0.0-0.7); EOSINOPHILS % (AUTO) 3.2 %; HGB - HEMOGLOBIN 15.7 g/dL (14.0-18.0); LYMPHOCYTES % (AUTO) 30.4 %; MEAN CORPUSCULAR HEMOGLOBIN 28.1 pg (27.0-31.0); MEAN CORPUSCULAR HGB CONC 34.1 g/dL (32.0-36.0); MEAN CORPUSCULAR VOLUME 82.3 fL (80.0-94.0); MEAN PLATELET VOLUME 9.3 fL (7.4-11.4); MONOCYTES # (AUTO) 0.7 10^3/uL (0.0-1.0); NEUTROPHILS # (AUTO) 3.4 10^3/uL (1.5-6.6); NEUTROPHILS % (AUTO) 52.7 %; PLT - PLATELET COUNT 270 10^3/uL (130-450); RED BLOOD COUNT 5.59 10^6/uL (4.70-6.10); RED CELL DISTRIBUTION WIDTH 12.2 % (12.0-15.0); WHITE BLOOD COUNT 6.5 x10^3/uL (4.8-10.8)
[2022-11-23 21:49] LABS: BILIRUBIN,URINE NEGATIVE (NEGATIVE); CLARITY,URINE CLEAR (CLEAR); GLUCOSE, URINE (UA) NEGATIVE (NEGATIVE); KETONES,URINE (UA) NEGATIVE (NEGATIVE); LEUKOCYTE ESTERASE, URINE NEGATIVE (NEGATIVE); NITRITE,URINE NEGATIVE (NEGATIVE); OCCULT BLOOD,URINE TRACE-INTA (NEGATIVE); PROTEIN,URINE NEGATIVE (NEGATIVE); UROBILINOGEN,URINE 0.2 (NORMAL) E.U./dL (NORMAL)
[2022-11-23 21:54] LABS: ALBUMIN 4.8 g/dL (3.2-5.5); ALBUMIN/GLOBULIN RATIO 1.7 (1.0-2.2); BILIRUBIN,TOTAL 1.4 mg/dL (0.2-1.0); CALCIUM 9.1 mg/dL (8.5-10.3); CREATININE 1.4 mg/dL (0.6-1.2); POTASSIUM 3.2 mmol/L (3.5-5.0); TOTAL PROTEIN 7.7 g/dL (6.7-8.2)
[2022-11-23] MEDS ORDERED: POTASSIUM CHLORIDE 20 MEQ TABLET PO STA (22:54)
[2022-11-23 23:14] VITALS: BP 129/93
== END 2022-11-23 23:13 | disposition home or self-care (01) ==
LOC: ED 20:17
DX: I10 Essential (primary) hypertension (principal)
CPT/HCPCS: 36415; 80053; 81003; 83690; 84484; 85025; 99283; 99284; A9270; 81001; 87086

== ENCOUNTER 2022-12-01 02:21 | Emergency (ER) | payer OTHER ==
--- OUTSIDE RECORDS SUMMARY | 2022-12-01 02:29 | EXTERNAL MEDICAL SUMMARY RPT | Continuity of Care Document ---
:1980 Author Organization [facility] Address [address] [place] [address] Phone Care Team Providers Name Role Phone Paradise Rich Unavailable Unavailable Allergies No information. Encounters No information. Functional Status No information. Immunizations No information. Medications No information. Problems date description facility 2022-09-10 00:00 Obstructive sleep apnea syndrome in [facility] Procedures No information. Results/Labs test date [...] wn) date) unknown) (unknown) (no (unknown) (unknown) [id number] (units (unkno wn) date) unknown) (unknown) (no [...] own) date) unknown) (unknown) (no (unknown) (unknown) [place], [place] (units ( unknown) date) [address] unknown) (unknown) (no (unknown) (unknown) Appearance: (units [...] (unknown) (unknown) : 1980 (units (unknown) date) Acct:[id number] unknown) (unknown) (no (unknown) (unknown) Dept at [...] (unknown) Patient: (units (unkno wn) date) Jerzy Herrera MR#: unknown) M000 (unknown) (no (unknown) (unknown) [...] (units (unknown) date) and an elevated unknown) [place] Sleepiness Scale score of 18/24. 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 unknown) (unknown) (no (unknown) (unknown) Details: (units (unkno wn) date) unknown) (unknown) (no (unknown) (unknown) Device data last (units (unknown) date) 30 days: unknown) (unknown) (no (unknown) (unknown) Device set up: (units (unknown) date) unknown) (unknown) (no (unknown) (unknown) Documented By: (units (unknown) date) Paradise Rich unknown) [facility] 09/10/22 0901 (unknown) (no (unknown) (unknown) Draft [...] (unknown) Patient: (units (o wn) date) Jerzy Herrera unknown) MR#: [id number] (unknown) (no (unknown) (unknown) [...] (units (unknown) date) and an elevated unknown) [place] Sleepiness Scale score of 18/24. This (unknown) [...] unknown) effort is made to edit content, freight tallier errors (unknown) (no (unknown) (unknown) taken in [...] own) date) unknown) (unknown) (no (unknown) (unknown) [id number] (units (unkno wn) date) unknown) (unknown) (no [...] own) date) unknown) (unknown) (no (unknown) (unknown) [place], [place] (units ( unknown) date) [address] unknown) (unknown) (no (unknown) (unknown) Anterior (units [...] (unknown) (unknown) : 1980 (units (unknown) date) Acct:[id number] unknown) (unknown) (no (unknown) (unknown) Dept at (units (unkno wn) date) . unknown) (unknown) (no (unknown) (unknown) Details: (units (unkno wn) date) unknown) (unknown) (no (unknown) (unknown) Device data last (units (unknown) date) 30 days: unknown) (unknown) (no (unknown) (unknown) Device set up: (units (unknown) date) unknown) (unknown) (no (unknown) (unknown) Documented By: (units (unknown) date) Paradise Rich unknown) [facility] 09/10/22 0901 (unknown) (no (unknown) (unknown) Draft [...] (unknown) Patient: (units (unkno wn) date) Jerzy Herrera unknown) MR#: [id number] (unknown) (no (unknown) (unknown) [...] (units (unknown) date) and an elevated unknown) [place] Sleepiness Scale score of 18/24. 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 unknown) (unknown) (no (unknown) (unknown) Details: (units (unkno wn) date) unknown) (unknown) (no (unknown) (unknown) Device data last (units (unknown) date) 30 days: unknown) (unknown) (no (unknown) (unknown) Device set up: (units (unknown) date) unknown) (unknown) (no (unknown) (unknown) Documented By: (units (unknown) date) Paradise Rich unknown) [facility] 09/10/22 0901 (unknown) (no (unknown) (unknown) Draft [...] particularly important for (unknown) (no (unknown) (unknown) Hermleigh Score: (units (unknown) date) 10 unknown) (unknown) (no (unknown) (unknown) [place] (units (unkno wn) date) Sleepiness Scale unknown) [...] (unknown) Patient: (units (unkno wn) date) Jerzy Herrera unknown) MR#: [id number] (unknown) (no (unknown) (unknown) [...] (units (unknown) date) and an elevated unknown) [place] Sleepiness Scale score of 18/24. This (unknown) [...] unknown) effort is made to edit content, freight tallier errors (unknown) (no (unknown) (unknown) still has [...] own) date) unknown) (unknown) (no (unknown) (unknown) [id number] (units (unkno wn) date) unknown) (unknown) (no [...] own) date) unknown) (unknown) (no (unknown) (unknown) [place] [address] (unit s (unknown) date) unknown) (unknown) (no [...] (unknown) (unknown) : 1980 (units (unknown) date) Acct:[id number] unknown) (unknown) (no (unknown) (unknown) Denies bloating [...] particularly important for (unknown) (no (unknown) (unknown) Hermleigh Score: 10 (units (unknown) date) unknown) (unknown) (no (unknown) (unknown) [place] Sleepiness (units (unknown) date) Scale unknown) (unknown) [...] (unknown) Patient: (units (unkno wn) date) Jerzy Herrera MR#: unknown) M000 (unknown) (no (unknown) (unknown) [...] a little, normal (units (unknown) date) bedtime (6174-1678), unknown) normal wake time (0800), sleep schedule [...] and (uni ts (unknown) date) an elevated Hermleigh unknown) Sleepiness Scale score of 18/24. This [...] effort is made unknown) to edit content, freight tallier errors (unknown) (no (unknown) (unknown) still has [...] own) date) unknown) (unknown) (no (unknown) (unknown) [id number] (units (unkno wn) date) unknown) (unknown) (no [...] own) date) unknown) (unknown) (no (unknown) (unknown) [place] [address] (unit s (unknown) date) unknown) (unknown) (no [...] (unknown) (unknown) : 1980 (units (unknown) date) Acct:[id number] unknown) (unknown) (no (unknown) (unknown) Denies bloating [...] particularly important for (unknown) (no (unknown) (unknown) Hermleigh Score: 10 (units (unknown) date) unknown) (unknown) (no (unknown) (unknown) [place] Sleepiness (units (unknown) date) Scale unknown) (unknown) [...] (unknown) Patient: (units (unkno wn) date) Jerzy Herrera MR#: unknown) M000 (unknown) (no (unknown) (unknown) [...] a little, normal (units (unknown) date) bedtime (6244-1517), unknown) normal wake time (0800), sleep schedule [...] and (uni ts (unknown) date) an elevated Hermleigh unknown) Sleepiness Scale score of 18/24. This [...] effort is made unknown) to edit content, freight tallier errors (unknown) (no (unknown) (unknown) still has [...] with (unknown) (no (unknown) (unknown) working with [employer] (unit s (unknown) date) and does not [...] own) date) unknown) (unknown) (no (unknown) (unknown) [id number] (units (unkno wn) date) unknown) (unknown) (no [...] own) date) unknown) (unknown) (no (unknown) (unknown) [place] [address] (unit s (unknown) date) unknown) (unknown) (no [...] Dr: Paradise (unit s (unknown) date) Layla MANAGER CLINICAL RESEARCH unknown) (unknown) (no (unknown) (unknown) Attitude: (units [...] (unknown) (unknown) : 1980 (units (unknown) date) Acct:[id number] unknown) (unknown) (no (unknown) (unknown) Denies bloating [...] particularly important for (unknown) (no (unknown) (unknown) Hermleigh Score: 10 (units (unknown) date) unknown) (unknown) (no (unknown) (unknown) [place] Sleepiness (units (unknown) date) Scale unknown) (unknown) [...] Has been working (units (unknown) date) with [employer] and does unknown) not feel it is [...] (unknown) Patient: (units (unkno wn) date) Jerzy Herrera MR#: unknown) M000 (unknown) (no (unknown) (unknown) [...] a little, normal (units (unknown) date) bedtime (9477-3887), unknown) normal wake time (0800), sleep schedule [...] and (uni ts (unknown) date) an elevated Hermleigh unknown) Sleepiness Scale score of 18/24. This [...] encouraged to go back unknown) to the [facility] for a clip on device that can [...] effort is made unknown) to edit content, freight tallier errors (unknown) (no (unknown) (unknown) still has [...] own) date) unknown) (unknown) (no (unknown) (unknown) [id number] (units (unkno wn) date) unknown) (unknown) (no [...] date) unknown) (unknown) (no (unknown) (unknown) [place] [address] (unit s (unknown) date) unknown) (unknown) (no [...] (unknown) (unknown) : 1980 (units (unknown) date) Acct:[id number] unknown) (unknown) (no (unknown) (unknown) Denies bloating [...] particularly important for (unknown) (no (unknown) (unknown) Hermleigh Score: 10 (units (unknown) date) unknown) (unknown) (no (unknown) (unknown) [place] Sleepiness (units (unknown) date) Scale unknown) (unknown) [...] Has been working (units (unknown) date) with [employer] and does unknown) not feel it is [...] (unknown) Patient: (units (unkno wn) date) Jerzy Herrera MR#: unknown) M000 (unknown) (no (unknown) (unknown) Pertinent (units (unkn own) date) Positives/Negatives unknown) (unknown) (no (unknown) (unknown) Plan (units (unkno wn) date) unknown) (unknown) (no (unknown) (unknown) Please go to DME for (uni ts (unknown) date) mask options. [...] a little, normal (units (unknown) date) bedtime (7351-5815), unknown) normal wake time (0800), sleep schedule [...] ts (unknown) date) an initially elevated unknown) [place] Sleepiness Scale score of (unknown) (no (unknown) [...] encouraged to go back unknown) to the [facility] for a clip on device that can [...] effort is made unknown) to edit content, freight tallier errors (unknown) (no (unknown) (unknown) still has [...] own) date) unknown) (unknown) (no (unknown) (unknown) [address] (units (unkno wn) date) unknown) (unknown) (no [...] date) unknown) (unknown) (no (unknown) (unknown) [place] [address] (unit s (unknown) date) unknown) (unknown) (no [...] (unknown) (unknown) : 1980 (units (unknown) date) Acct:[id number] unknown) (unknown) (no (unknown) (unknown) Denies bloating [...] particularly important for (unknown) (no (unknown) (unknown) Hermleigh Score: 10 (units (unknown) date) unknown) (unknown) (no (unknown) (unknown) [place] Sleepiness (units (unknown) date) Scale unknown) (unknown) [...] Has been working (units (unknown) date) with [employer] and does unknown) not feel it is [...] (unknown) Patient: (units (unkno wn) date) Jerzy Herrera MR#: unknown) M000 (unknown) (no (unknown) (unknown) Pertinent (units (unkn own) date) Positives/Negatives unknown) (unknown) (no (unknown) (unknown) Plan (units (unkno wn) date) unknown) (unknown) (no (unknown) (unknown) Please go to [facility] for (uni ts (unknown) date) mask options. [...] a little, normal (units (unknown) date) bedtime (2334-5243), unknown) normal wake time (0800), sleep schedule [...] ts (unknown) date) an initially elevated unknown) [place] Sleepiness Scale score of (unknown) (no (unknown) [...] encouraged to go back unknown) to the [facility] for a clip on device that can [...] effort is made unknown) to edit content, freight tallier errors ma (unknown) (no (unknown) (unknown) still [...] own) date) unknown) (unknown) (no (unknown) (unknown) [id number] (units (unkno wn) date) unknown) (unknown) (no (unknown) (unknown) 86%. CPAP (units (unkn own) date) initiated. unknown) (unknown) (no (unknown) (unknown) Affect: normal (units (unknown) date) affect unknown) (unknown) (no (unknown) (unknown) Age/Sex: 42 / M (units (unknown) date) Date of Service: unknown) (unknown) (no (unknown) (unknown) Allergies (units (unkn own) date) unknown) (unknown) (no (unknown) (unknown) [place], [place] (units ( unknown) date) [address] unknown) (unknown) (no (unknown) (unknown) Anterior basement [...] (unknown) (unknown) : 1980 (units (unknown) date) Acct:[id number] unknown) (unknown) (no (unknown) (unknown) Dept at [...] (unknown) (unknown) Patient: (units (unkno wn) date) LilliJerzy MR#: unknown) M000 (unknown) (no (unknown) (unknown) [...] little, normal (units (unknown) date) bedtime unknown) (0295-3417), normal wake time (0800), sleep schedule (unknown) [...] (unknown) date) and an initially unknown) elevated [place] Sleepiness Scale score of (unknown) (no (unknown) [...] (unknown) (unknown) 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 He was (units (u nknown) date) encouraged to go unknown) back to the [facility] for a clip on device that can [...] effort is unknown) made to edit content, freight tallier errors (unknown) (no (unknown) (unknown) still has [...] own) date) unknown) (unknown) (no (unknown) (unknown) 395179 (units (unkno wn) date) unknown) (unknown) (no (unknown) (unknown) 86%. CPAP (units (unkn own) date) initiated. unknown) (unknown) (no (unknown) (unknown) Affect: normal (units (unknown) date) affect unknown) (unknown) (no (unknown) (unknown) Age/Sex: 42 / M (units (unknown) date) Date of Service: unknown) (unknown) (no (unknown) (unknown) Allergies (units (unkn own) date) unknown) (unknown) (no (unknown) (unknown) [place], [place] (units ( unknown) date) [address] unknown) (unknown) (no (unknown) (unknown) Anterior basement [...] (unknown) (unknown) : 1980 (units (unknown) date) Acct:[id number] unknown) (unknown) (no (unknown) (unknown) Dept at [...] (unknown) Patient: (units (unkno wn) date) Jerzy Herrera MR#: unknown) M000 (unknown) (no (unknown) (unknown) [...] little, normal (units (unknown) date) bedtime unknown) (3831-7740), normal wake time (0800), sleep schedule (unknown) [...] (unknown) date) and an initially unknown) elevated [place] Sleepiness Scale score of (unknown) (no (unknown) [...] (unknown) (unknown) 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 He was (units (u nknown) date) encouraged to go unknown) back to the [facility] for a clip on device that can [...] effort is unknown) made to edit content, freight tallier errors (unknown) (no (unknown) (unknown) still has [...] own) date) unknown) (unknown) (no (unknown) (unknown) [id number] (units (unkno wn) date) unknown) (unknown) (no (unknown) (unknown) 86%. CPAP initiated. (uni ts (unknown) date) unknown) (unknown) (no (unknown) (unknown) Affect: normal (units (unknown) date) affect unknown) (unknown) (no (unknown) (unknown) Age/Sex: 42 / M Date (uni ts (unknown) date) of Service: unknown) (unknown) (no (unknown) (unknown) Allergies (units (unkn own) date) unknown) (unknown) (no (unknown) (unknown) [place] [address] (unit s (unknown) date) unknown) (unknown) (no [...] Dr: Paradise (unit s (unknown) date) Layla MANAGER CLINICAL RESEARCH unknown) (unknown) (no (unknown) (unknown) Attitude: (units [...] (unknown) (unknown) : 1980 (units (unknown) date) Acct:[id number] unknown) (unknown) (no (unknown) (unknown) Dept at [...] He does not (unknown) (no (unknown) (unknown) Hermleigh Score: 18 (units (unknown) date) unknown) (unknown) (no (unknown) (unknown) [place] Sleepiness (units (unknown) date) Scale unknown) (unknown) [...] (unknown) Patient: (units (unkno wn) date) Jerzy Herrera MR#: unknown) M000 (unknown) (no (unknown) (unknown) [...] a little, normal (units (unknown) date) bedtime (4300-1859), unknown) normal wake time (0800), sleep schedule [...] ts (unknown) date) an initially elevated unknown) [place] Sleepiness Scale score of (unknown) (no (unknown) [...] encouraged to go back unknown) to the [facility] for a clip on device that can [...] effort is made unknown) to edit content, freight tallier errors (unknown) (no (unknown) (unknown) still has [...] own) date) unknown) (unknown) (no (unknown) (unknown) [id number] (units (unkno wn) date) unknown) (unknown) (no (unknown) (unknown) 86%. CPAP initiated. (uni ts (unknown) date) unknown) (unknown) (no (unknown) (unknown) Affect: normal (units (unknown) date) affect unknown) (unknown) (no (unknown) (unknown) Age/Sex: 42 / M Date (uni ts (unknown) date) of Service: unknown) (unknown) (no (unknown) (unknown) Allergies (units (unkn own) date) unknown) (unknown) (no (unknown) (unknown) [place] [address] (unit s (unknown) date) unknown) (unknown) (no [...] (unknown) (unknown) : 1980 (units (unknown) date) Acct:[id number] unknown) (unknown) (no (unknown) (unknown) Dept at [...] He does not (unknown) (no (unknown) (unknown) Hermleigh Score: 18 (units (unknown) date) unknown) (unknown) (no (unknown) (unknown) [place] Sleepiness (units (unknown) date) Scale unknown) (unknown) [...] (unknown) Patient: (units (unkno wn) date) Jerzy Herrera MR#: unknown) M000 (unknown) (no (unknown) (unknown) [...] a little, normal (units (unknown) date) bedtime (4344-5524), unknown) normal wake time (0800), sleep schedule [...] ts (unknown) date) an initially elevated unknown) [place] Sleepiness Scale score of (unknown) (no (unknown) [...] effort is made unknown) to edit content, freight tallier errors (unknown) (no (unknown) (unknown) still has [...] own) date) unknown) (unknown) (no (unknown) (unknown) 675405 (units (unkno wn) date) unknown) (unknown) (no (unknown) (unknown) 86%. CPAP initiated. (uni ts (unknown) date) unknown) (unknown) (no (unknown) (unknown) Affect: normal (units (unknown) date) affect unknown) (unknown) (no (unknown) (unknown) Age/Sex: 42 / M Date (uni ts (unknown) date) of Service: unknown) (unknown) (no (unknown) (unknown) Allergies (units (unkn own) date) unknown) (unknown) (no (unknown) (unknown) [place] [address] (unit s (unknown) date) unknown) (unknown) (no [...] (unknown) (unknown) : 1980 (units (unknown) date) Acct:[id number] unknown) (unknown) (no (unknown) (unknown) Dept at [...] He does not (unknown) (no (unknown) (unknown) Hermleigh Score: 18 (units (unknown) date) unknown) (unknown) (no (unknown) (unknown) [place] Sleepiness (units (unknown) date) Scale unknown) (unknown) [...] (unknown) Patient: (units (unkno wn) date) Jerzy Herrera MR#: unknown) M000 (unknown) (no (unknown) (unknown) [...] ts (unknown) date) Pap device on unknown) [place] book pap tap...needs dme who will do it. [...] a little, normal (units (unknown) date) bedtime (1665-5894), unknown) normal wake time (0800), sleep schedule [...] ts (unknown) date) an initially elevated unknown) [place] Sleepiness Scale score of (unknown) (no (unknown) [...] encouraged to go back unknown) to the [facility] for a clip on device that can (unknown) (no (unknown) (unknown) may occur. (units (unk nown) date) Occasional wrong-word unknown) or 'sound-alike' substitutions may have (unknown) (no (unknown) (unknown) morning, denies (units (unknown) date) nocturnal cough, unknown) denies nocturnal palpitations, denies heart (unknown) (no (unknown) (unknown) not able to tolerate. (uni ts (unknown) date) Went to [facility] without unknown) success. Does not wish to [...] effort is made unknown) to edit content, freight tallier errors (unknown) (no (unknown) (unknown) still has [...] own) date) unknown) (unknown) (no (unknown) (unknown) 535148 (units (unkno wn) date) unknown) (unknown) (no (unknown) (unknown) 86%. CPAP initiated. (uni ts (unknown) date) unknown) (unknown) (no (unknown) (unknown) Affect: normal (units (unknown) date) affect unknown) (unknown) (no (unknown) (unknown) Age/Sex: 42 / M Date (uni ts (unknown) date) of Service: unknown) (unknown) (no (unknown) (unknown) Allergies (units (unkn own) date) unknown) (unknown) (no (unknown) (unknown) [place] [address] (unit s (unknown) date) unknown) (unknown) (no [...] (unknown) (unknown) : 1980 (units (unknown) date) Acct:[id number] unknown) (unknown) (no (unknown) (unknown) Dept at [...] speak in complete (unknown) (no (unknown) (unknown) Hermleigh Score: 18 (units (unknown) date) unknown) (unknown) (no (unknown) (unknown) [place] Sleepiness (units (unknown) date) Scale unknown) (unknown) [...] (unknown) Patient: (units (unkno wn) date) Jerzy Herrera MR#: unknown) M000 (unknown) (no (unknown) (unknown) [...] to call him unknown) 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 This [...] effort is made unknown) to edit content, freight tallier errors (unknown) (no (unknown) (unknown) still has [...] The mask was unknown) left at the assistant front desk manager for him to try. (unknown) (no (unknown) [...] own) date) unknown) (unknown) (no (unknown) (unknown) [id number] (units (unkno wn) date) unknown) (unknown) (no (unknown) (unknown) 86%. CPAP initiated. (uni ts (unknown) date) unknown) (unknown) (no (unknown) (unknown) Affect: normal (units (unknown) date) affect unknown) (unknown) (no (unknown) (unknown) Age/Sex: 42 / M Date (uni ts (unknown) date) of Service: unknown) (unknown) (no (unknown) (unknown) Allergies (units (unkn own) date) unknown) (unknown) (no (unknown) (unknown) [place] [address] (unit s (unknown) date) unknown) (unknown) (no [...] (unknown) (unknown) : 1980 (units (unknown) date) Acct:[id number] unknown) (unknown) (no (unknown) (unknown) Details: (units [...] speak in complete (unknown) (no (unknown) (unknown) Hermleigh Score: 18 (units (unknown) date) unknown) (unknown) (no (unknown) (unknown) [place] Sleepiness (units (unknown) date) Scale unknown) (unknown) [...] (unknown) Patient: (units (unkno wn) date) Jerzy Herrera MR#: unknown) M000 (unknown) (no (unknown) (unknown) [...] to call him unknown) 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 (unknown) (no (unknown) (unknown) wellbutrin PO DAILY (unit s (unknown) date) 09/10/22 [History unknown) Confirmed 11/06/22] (unknown) (no (unknown) (unknown) y occur. Occasional (unit s (unknown) date) wrong-word or unknown) 'sound-alike' substitutions may have occurred Social History date description facility 2022-11-06 00:00 Never smoked tobacco ([facility] Vital Signs date measurement value units [...]
[2022-12-01] MEDS ORDERED: ACETAMINOPHEN 325 MG TABLET PO STA (02:50)
--- NOTE | 2022-12-01 02:50 | ED Physician Documentation ---
History of Present Illness - Stated complaint Stated Complaint: HIGH BP - Chief complaint Chief Complaint: Cardiac - History obtained from History obtained from: Patient, Family () - Additonal information Additional information: 42-year-old man with history of high blood pressure presents with persistent high blood pressure readings at home after last coming in 8 days ago with similar symptoms. Patient states that he has been under a lot of stress And has been off of blood pressure medicine but restarted just before the new year. +frontal MUSTAFA. He endorses no other associated symptoms. Denies chest pain, shortness of breath, dizziness, nausea. 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: Other (Vasectomy) HEENT: Other - Present Medications Home Medications: Ambulatory Orders Medication Instructions Recorded Confirmed Amlodipine Besylate [Norvasc] 2.5 mg PO DAILY PM #20 tablet 11/23/22 Carboxymethylcellulose Sodium 11/23/22 [Refresh Plus] Lifitegrast [Xiidra] 11/23/22 buPROPion [Wellbutrin Sr] 11/23/22 - Allergies Allergies/Adverse Reactions: Allergies Allergy/AdvReac Type Severity Reaction Status Date / Time red dye Allergy Itching Verified 12/01/22 02:29 Sulfa (Sulfonamide Allergy Edema Verified 12/01/22 02:29 Antibiotics) - Social History Does the pt smoke?: No Smoking Status: Never smoker Does the pt drink ETOH?: No Does the pt have substance abuse?: No - Immunizations Immunizations are current?: Yes - POLST Patient has POLST: No PD ED PE NORMAL - Vitals Vital signs reviewed: Yes - General General: Alert and oriented X 3, No acute distress, Well developed/nourished - HEENT HEENT: Atraumatic, PERRL, EOMI - Neck Neck: Supple, no meningeal sign - Cardiac Cardiac: RRR - Respiratory Respiratory: No respiratory distress, Clear bilaterally - Derm Derm: Normal color, Warm and dry - Neuro Neuro: Alert and oriented X 3, 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 Patient was started on Norvasc 2.5 mg daily on November 23 but was unable to mushroom picker his prescription until a couple days ago. He has no symptoms of endorgan damage And just had blood work done last week therefore I advised him to continue with his blood pressure medication and to plan to follow-up with his primary care provider. Return precautions were given. Departure - Departure Disposition: 01 Home, Self Care Clinical Impression: Insomnia, Hypertension Condition: Stable Instructions: Hypertension Dc Comments: You are seen in the emergency department for hypertension. Please follow-up with your primary care provider. Return to the emergency department for any new or worsening symptoms. Continue to take your norvasc 2.5mg daily until you see your doctor. Discharge Date/Time: 12/01/22 02:57
[2022-12-01 02:57] VITALS: BP 157/110
== END 2022-12-01 02:57 | disposition home or self-care (01) ==
LOC: ED 02:21
DX: I10 Essential (primary) hypertension (principal); G47.00 Insomnia, unspecified
CPT/HCPCS: 99282; 99284; A9270

== ENCOUNTER 2023-09-21 07:56 | Outpatient (CLI) | payer OTHER ==
--- NOTE | 2023-09-21 18:08 | Ultrasound Report ---
PROCEDURE: Head or Neck Soft Tissue INDICATIONS: DISTURBANCE OF SALIVARY SECREATION TECHNIQUE: Real-time scanning was performed of the thyroid gland, with image documentation. COMPARISON: None FINDINGS: Multiple grayscale and color Doppler images of the neck were acquired to evaluate the cervical lymph nodes the parotid gland, and submandibular glands. Sublingual glands were not well visualized. No jamal picious mass, stone, or adenopathy identified. Visualized parotid gland and submandibular glands appe ar within normal limits. No abnormal fluid collection seen. IMPRESSION: Unremarkable sonographic evaluation of the neck. No evidence for suspicious mass lesion or adenopathy. Normal appearance of the imaged salivary glands. Reviewed by: Jerzy Diaz MD on 09/21/2023 6:06 PM PDT Approved by: Jerzy Diaz MD on 09/21/2023 6:06 PM PDT Station ID: [id number]
== END 2023-09-21 07:57 | disposition home or self-care (01) ==
LOC: DI 07:56
PROVIDERS: ATTEND Nurse Practitioner Family
DX: K11.7 Disturbances of salivary secretion (principal)